=== PATIENT | female | born 1960 | race Caucasian/White ===

== ENCOUNTER 2019-11-23 02:15 | Emergency (ER) | payer BC ==
[~2019-11-23] VITALS: Ht 154.9 cm; Wt 104.3 kg
[2019-11-23] MEDS ORDERED: FAMOTIDINE 20 MG/2 ML VIAL IV STA (02:37)
[2019-11-23] MEDS ORDERED: KETOROLAC TROMETHAMINE 30 MG/ML VIAL IV STA (03:21)
[2019-11-23] MEDS ORDERED: KETOROLAC TROMETHAMINE 30 MG/ML VIAL ONE (03:31)
--- NOTE | 2019-11-23 03:45 | NUR ---
PT STATES "WHEN CAN I GO HOME. I AM READY TO GO. I FEEL SO MUCH BETTER AND MY BACK DOESNT HURT NOW. NOW I JUST HAVE INDIGESTION." EXPLAINED WAITING FOR ALL THE LAB RESULTS THEN THE DOCTOR WILL TALK TO HER ABOUT THE RESULTS.
--- NOTE | 2019-11-23 03:46 | Diagnostic Imaging Report ---
EXAMINATION: CXR 2 VIEW - HOPD INDICATION: ^chest pain ^[id number] ^[id number] COMPARISON: None FINDINGS: PA and lateral views TUBES and LINES: None. LUNGS: Lungs are well inflated. Lungs are clear. There is no evidence of pneumonia or pulmonary edema. PLEURA: No pleural effusion or pneumothorax. HEART AND MEDIASTINUM: The cardiomediastinal silhouette is unremarkable. BONES AND SOFT TISSUES: No acute osseous lesion. Soft tissues are unremarkable. UPPER ABDOMEN: No free air under the diaphragm. IMPRESSION: No acute thoracic radiographic abnormality. Signed by: Alexandru Valentino MD on 11/23/2019 3:42 AM
[2019-11-23] MEDS ORDERED: ASPIRIN 81 MG CHEW TAB PO ONE (04:00)
--- NOTE | 2019-11-23 04:05 | NUR ---
HAVE RUN CARDIAC TEST X3 WITHOUT RESULTS. CALLED [facility] PER TO HAVE BLOOD SENT TO LAB AT [facility] TO RUN. TRANSPORTER WILL TAKE AT LEAST 45MINS, STATES THAT IS TOO LONG AND NEED SOMEONE FROM THE HOSP TO COME GET THE BLOOD.
--- NOTE | 2019-11-23 04:12 | NUR ---
SIMBA FROM [facility] HERE TO TAKE BLOOD TO LAB
[2019-11-23 04:39] LABS: CREATINE KINASE 67 IU/L (29-168)
--- NOTE | 2019-11-23 04:57 | NUR ---
MD AND MYSELF IN MULT. TIMES TO SPEAK WITH PT, ASSIST. HER WITH TRYING TO GET COMFORTABLE, UNABLE TO GO TO SLEEP
--- NOTE | 2019-11-23 05:00 | NUR ---
CALLED [facility] LAB NO RESULTS FOR [facility] AND TROPI, WILL HAVE RESULTS IN ABOUT 5MINS.
--- NOTE | 2019-11-23 05:10 | NUR ---
LAB RESULTS ARRIVED FROM [facility]. IN TO TALK WITH PT
[2019-11-23 05:20] VITALS: BP 108/59
== END 2019-11-23 05:20 | disposition home or self-care (01) ==
LOC: FSED 02:15
DX: R07.89 Other chest pain (principal); K21.9 Gastro-esophageal reflux disease without esophagitis; M62.830 Muscle spasm of back; M06.9 Rheumatoid arthritis, unspecified
CPT/HCPCS: 36415; 71046; 80048; 80076; 82550; 82553; 83880; 84484; 85025; 93005; 96374; 96376; 99284; J1885

== ENCOUNTER → 2019-12-08 | Day surgery (SDC) | payer OTHER ==
[2019-12-05 12:22] LABS: BASOPHILS % 0.7 % (0.0-1.0); EOSINOPHILS # (AUTO) 0.2 (0.0-0.4); EOSINOPHILS % 3.1 % (0.0-6.0); HEMATOCRIT 45.1 % (34.2-44.1); HEMOGLOBIN 14.8 g/dL (12.0-16.0); LYMPHOCYTES # (AUTO) 1.2 (1.0-3.2); LYMPHOCYTES % 21.9 % (18.0-39.1); MEAN CORPUSCULAR HEMOGLOBIN 29.5 pg (28-32); MEAN CORPUSCULAR HGB CONC 32.8 g/dL (31-35); MONOCYTES # (AUTO) 0.6 (0.2-0.8); MONOCYTES % 10.9 % (4.4-11.3); NEUTROPHILS # (AUTO) 3.5 (2.1-6.9); NEUTROPHILS % 62.9 % (38.7-80.0); PLATELET COUNT 191 x10e3/uL (140-360); RED BLOOD COUNT 5.01 x10e6/uL (3.6-5.1); RED CELL DISTRIBUTION WIDTH 14.2 % (11.7-14.4)
[~2019-12-08] MED LIST: ACETAMINOPHEN325 M1 PO; ASPIRIN81 MG PO; CARVEDILOL3.125 MG PO; FAMOTIDINE20 MG PO; FENTANYL CITRATE/PF 100MCG/2 ML INJ ONE; FLONASE ALLERG9.9 ML; HYOSCYAMINE 0.125 MG TAB ONE; LIDOCAINE HCL 2% LOCAL INJ 5 ML SDV VIAL INJ ONE; MIDAZOLAM HCL 2 MG/2 ML VIAL ONE; MONTELUKAST SOD10 MG PO; PLAVIX75 MG PO; PROAIR HFA INH8.5 GM INH; PROPOFOL IV EMULSION 10 MG/ML 20 ML VIAL ONE; SIMVASTATIN20 MG PO; SPIRIVA18 MCG INH; SULFASALAZINE500 MG PO; SYMBICORT 16010.2 GM IH; TIZANIDINE HCL4 MG PO
--- OUTSIDE RECORDS SUMMARY | 2019-12-08 09:44 | XMS REPORT ---
Author Author Sujey Lopez Organization [employer] Address Unknown Phone Unavailable Care Team Providers Care Staff Development Nurse Name Role Phone Leydi Lopez CP Unavailable Allergies, Adverse Reactions, Alerts Substance Reaction Event Type N.K.D.A. 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 Active Problem Coronary artery disease invo lving [place] coronary artery of [place] heart, angina presence unspecified I25.10 Activ e Problem Gastroesophageal reflux disease, esophag itis presence not specified K21.9 Active Problem Osteopenia of spine M85.88 Active Problem Hypertensive heart disease without heart failure I11.9 Active Problem History of [place] (myocardial infarction) I25.2 Active Assessment Sinus headache R51 Active Problem Constipation, unspecified constipation type K59.00 Active Assessment Seasonal allergic rhinitis, unspecified allergic rhinitis trigger J30.2 Active Problem Non morbid obesity due to excess calories E66.09 Active Medications Medication Code System Code Instructions Start Date End Date Status Dosage Gabapentin [facility] [address]-59 600 MG Orally Three times a day Sep Active 1 tablet Fluticasone Propionate [facility] [address]-75 50 MCG/ACT Nasall y Once a day Aug 07, 2015 Active 1 spray in each nost ril Aspir-Low [facility] [address]-76 81 MG Orally Once a day December 25, 2012 Active 1 tablet Albuterol Sulfate HFA [facility] [address]-67 108 (90 Ba se) MCG/ACT Inhalation every 4-6 hrs PRN Jul 07, 2016 Active 2 puffs as neede d Plavix [facility] [address]-76 75 MG Orally Once a day Ac tive 1 tablet [address]ilol [facility] [address]-67 3.125 MG Orally once a day December 25 Active 1 tablet with food Symbicort [facility] [address]-82 160-4.5 MCG/ACT Inhalation Twice a day Jul 07, 2016 Apr 06, 2017 Active 2 puffs Sulfasalazine [facility] [address]-46 500 mg Orally 2 in the morning and 2 at night Active 1 tablet Levocetirizine Dihydrochloride [facility] [address]-44 5 MG Oral ly Once a day January 09, 2017 Jun 08, 2017 Active 1 tablet in the even ing Ranitidine HCl [facility] [address]-31 150 MG Orally QD-BID PRN Mar 272015 Active 1 capsule [address]nta [facility] [address]-25 75 MG Orally prn Aug 27, 2015 Acti ve 1 tablet Clopidogrel Bisulfate [facility] [address]-45 75 MG Orally Once a day December 25, 2012 Active 1 tablet Montelukast Sodium [facility] [address]-18 10 MG Orally Once a day Sep Active 1 tablet in the evening Simvastatin [facility] [address]-00 40 MG Orally Once a day December 25, 2012 Active 1 tablet in the evening Vital Signs Date/Time: January 09, 2017 BMI 37.41 Index Weight 198 lbs Height 61 in Cardiac Monitoring Heart Rate 76 /min Blood Pressure Diastolic 72 mm Hg Blood Pressure Systolic 112 mm Hg Results No Known Results Summary Purpose [employer] Submission
--- OUTSIDE RECORDS SUMMARY | 2019-12-08 09:44 | XMS REPORT ---
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 Active Problem Coronary artery disease invo lving [place] coronary artery of [place] heart, angina presence unspecified I25.10 Activ e Problem Gastroesophageal reflux disease, esophag itis presence not specified K21.9 Active Problem Osteopenia of spine M85.88 Active Assessment Hyperlipidemia, unspecified hyperlipidemia E78.5 Active Assessment Seasonal allergic rhinitis, unspecified allergic rhinitis trigger J30.2 Active Assessment Acute recurrent maxillary sinusitis J01.01 Active Problem Hypertensive heart disease without heart failure I11.9 Active Problem History of [place] (myocardial infarction) I25.2 Active Assessment Hypertensive heart disease without heart failure I11.9 Active Problem Constipation, unspecified constipation type K59.00 Active Assessment Chronic obstructive pulmonary disease, unspecified 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 CLERK D type J44.9 Active Problem Non morbid obesity due to excess calories E66.09 Active Medications Medication Code System Code Instructions Start Date End Date Status Dosage Simvastatin [facility] [address]-61 40 MG Orally Once a day December 25, 2012 Active 1 tablet in the evening Aspir-Low [facility] [address]-99 81 MG Orally Once a day December 25, 2012 Active 1 tablet Sulfasalazine [facility] [address]-94 500 mg Orally Activ e 3 tablet Gabapentin [facility] [address]-14 600 MG Orally as needed (prn) September 24, 2016 Active 1 tablet Albuterol Sulfate HFA [facility] [address]-69 108 (90 Ba se) MCG/ACT Inhalation every 4-6 hrs PRN Jul 07, 2016 Active 2 puffs as neede d Spiriva Respimat [facility] 9907[address]-81 2.5 mcg inhalation QD JanuaryOctober 08, 2017 Active 2 inhalations Montelukast Sodium [facility] [address]-12 10 MG Orally Once a day Mar Active 1 tablet in the evening Levofloxacin [facility] [address]-88 500 MG Orally Once a day MarApr 05, 2017 Active 1 tablet Plavix [facility] [address]-82 75 MG Orally Once a day Ac tive 1 tablet Symbicort [facility] [address]-44 160-4.5 MCG/ACT Inhalation Twice a day Jul 07, 2016 Apr 06, 2017 Active 2 puffs Cyclobenzaprine HCl [facility] [address]-48 7.5 MG Orally Active 1 tablet as needed Ranitidine HCl [facility] [address]-59 150 MG Orally QD-BID PRN Mar 272015 Active 1 capsule Multivitamin [facility] [address]367 Active not def ined Levocetirizine Dihydrochloride [facility] [address]-57 5 MG Oral ly Once a day January 09, 2017 Jun 08, 2017 Active 1 tablet in the even ing Carvedilol [facility] [address]-10 3.125 MG Orally once a day December 25 Active 1 tablet with food Nucynta [facility] [address]-39 75 MG Orally prn Aug 27, 2015 Acti ve 1 tablet Vitamin D [facility] [address]-95 6000 twice a day (bid) Active 1 capsule Tizanidine HCl [facility] [address]-75 4 MG Orally Active 1 capsule as needed Clopidogrel Bisulfate [facility] [address]-48 75 MG Orally Once a day December 25, 2012 Active 1 tablet Fluticasone Propionate [facility] [address]-41 50 MCG/ACT Nasall y Once a day Aug 07, 2015 Active 1 spray in each nost ril Esomeprazole Magnesium [facility] [address]-94 40 MG Orally daily Active 1 tablet Vital Signs Date/Time: Mar 31, 2017 BMI 37.60 Index Weight 199 lbs Height 61 in Cardiac Monitoring Heart Rate 70 /min Blood Pressure Diastolic 66 mm Hg Blood Pressure Systolic 110 mm Hg Results No Known Results Summary Purpose [employer] Submission
--- OUTSIDE RECORDS SUMMARY | 2019-12-08 09:44 | XMS REPORT | Continuity of Care Document ---
Author Author NovoED, BRANT Barron [employer] Address Unknown Phone Unavailable Care Team Providers Care Rack Loader Name Role Phone [employer] Unavailable Un available Problems Problem Status Onset Date Classification Date Reported Comments Source Rheumatoid arthritis Active Diagnosis 07/29/2018 [facility] GUCCI (obstructive sleep apnea) Active Problem 09/2018 [facility] Hyperlipidemia, unspecified hyperlipidemia Active Problem 07/29/2018 [facility] Seasonal allergic rhinitis, unspecified allergic rhinitis trigger Active Prob penelope 07/29/2018 [facility] Polyp of colon, unspecified part of colo n, unspecified type Active Prob penelope 07/29/2018 [facility] Ulcerative colitis with complication, un specified location Active Prob penelope 07/29/2018 [facility] Chronic obstructive pulmonary disease, u nspecified COPD type Active Diag nosis 07/29/2018 [facility] Coronary artery disease involving prairie band coronary artery of prairie band heart, angina presence unspecified Active Diagnosis 07/29/2018 [facility] Gastroesophageal reflux disease, esophag itis presence not specified Active Prob penelope 07/29/2018 [facility] Osteopenia of spine Active Problem 07/29/2018 [facility] Headache, unspecified headache type Active Diagnosis 0 12/31/2016 [facility] Hypertensive heart disease without heart failure Active Diagnosis 07/29/2018 [facility],Prabhu Singh MD, PA History of [place] (myocardial infarction) Active Diagnosis 07/29/2018 [facility] Constipation, unspecified constipation type Active Problem 07/29/2018 [facility] Non morbid obesity due to excess calories Active Problem 07/29/2018 [facility] Cough Active Diagnosis 01/17/2017 [facility] Seasonal allergic rhinitis, unspecified chronicity, unspecified trigger Active Diag nosis 01/17/2017 [facility] BMI 37.0-37.9, adult Active Problem 07/29/2018 [facility] Sinus headache Active Diagnosis 01/03/2018 [facility] Screening for colon cancer Act dianne Diagnosis 0 01/30/2017 [facility] Screening for breast cancer Ac tive Diagnosis 0 01/30/2017 [facility] Encntr for general adult medical exam w/ o abnormal findings Active Diag nosis 01/30/2017 [facility] Old myocardial infarction Acti ve Problem Prabhu Singh MD, PA Body mass index (BMI) 36.0-36.9, adult Active Diagnosis 04/15/2017 Prabhu Singh MD, P A Coronary atherosclerosis of prairie band coronary artery Active Problem 04/15/2017 Prabhu Singh MD, PA Obesity, unspecified Active Diagnosis 04/15/2017 Prabhu Singh MD, PA Mixed hyperlipidemia Active Problem 04/15/2017 Prabhu Singh MD, PA Abnormal electrocardiogram [ECG] [EKG] Active Problem 04/15/2017 Prabhu Singh MD, P A Atherosclerotic heart disease of prairie band coronary artery with unspecified angina pectoris Active Problem 04/15/2017 Prabhu Singh MD, PA Chest pain, unspecified Active Problem 04/15/2017 Prabhu Singh MD, PA Coronary angioplasty status Ac tive Problem Prabhu Singh MD, PA Atherosclerotic heart disease of prairie band coronary artery without angina pectoris Active Problem 04/15/2017 Prabhu Singh MD, PA Old myocardial infarction Acti ve Problem Prabhu Singh MD, PA Obesity, unspecified Active Problem 04/15/2017 Prabhu Singh MD, PA Benign hypertensive heart disease without heart failur e Active Problem 04/15/2017 Prabhu Singh MD, PA Postprocedural PCI status Acti ve Problem Prabhu Singh MD, PA Abnormal ECG Active Problem 04/15/2017 Prabhu Singh MD, PA Mixed hyperlipidemia Active Problem 04/15/2017 Prabhu Singh MD, PA Acute bilateral low back pain without sciatica Active Diagnosis 04/17/2017 [facility] Acute recurrent maxillary sinusitis Active Diagnosis 0 04/02/2017 [facility] Body mass index (BMI) of 40.1 to 44.9 in adult Active Problem 07/29/2018 [facility] Allergic rhinitis Active Problem 09/17/2016 [facility] Acute sinusitis, recurrence not specifie d, unspecified location Active Diag nosis 09/01/2015 [facility] Acute pain of left shoulder Ac tive Diagnosis 0 10/06/2015 [facility] Elevated blood pressure (not hypertension) Active Diagnosis 10/06/2015 [facility] Abnormal EKG Active Diagnosis 10/06/2015 [facility] Thrombocytopenia Active Problem 06/13/2016 [facility] Pain in right foot Active Diagnosis 11/22/2015 [facility] Pain of left foot Active Diagnosis 11/22/2015 [facility] Leukopenia, unspecified type A ctive Problem [facility] Sorethroat Active Diagnosis 10/18/2015 [facility] Screening for osteoporosis Act dianne Diagnosis 0 11/11/2015 [facility] Routine adult health maintenance Active Diagnosis 0 11/11/2015 [facility] Constipation Active Diagnosis 01/06/2016 [facility] Constipation by delayed colonic transit Active Diagnosis 01/06/2016 [facility] Urinary tract infection Active Diagnosis 04/12/2016 [facility] Heart burn Active Diagnosis 04/12/2016 [facility] Abdominal pain Active Diagnosis 04/12/2016 [facility] Dizziness Active Diagnosis 04/12/2016 [facility] Headache Active Diagnosis 03/07/2016 [facility] Seasonal allergies Active Diagnosis 03/07/2016 [facility] Abdominal spasms Active Diagnosis 09/18/2016 [facility] Lower respiratory infection Ac tive Diagnosis 0 09/18/2016 [facility] Abdominal pain, unspecified location Active Diagnosis 08/07/2016 [facility] Dry skin Active Diagnosis 08/07/2016 [facility] Wears dentures Active Diagnosis 07/29/2018 [facility] COPD exacerbation Active Diagnosis 07/29/2018 [facility] Thrush, oral Active Diagnosis 07/29/2018 [facility] Medications Medication Details Route Status Patient Instructions Ordering Provider Order Date Source ProAir HFA 2 puffs as needed Inhalation Active 108 (90 Base) MCG/ACT Inhalation every 6 hrs Xavier Pimentel 07/22/2018 [facility] Ventolin HFA 2 puffs as needed Inhalation Active 108 (90 Base) MCG/ACT Inhalation every 6 hrs Hever 07/09/2018 [facility] Cheratussin AC 5 ml Orally Active 100-10 MG/5ML Orally ti d prn cough Hever 07/09/2018 [facility] Ceftin 1 tablet Orally Active 250 MG Orally every 12 hrs Hever 07/06/2018 [facility] Mycelex 1 jerome Mouth/Throat Active 10 mg Mouth/Throat Five times a day Hever 07/06/2018 [facility] Proventil HFA 2 puffs as needed Inhalation Active 108 (90 Base) MCG/ACT Inhalation every 6 hrs Hever 07/06/2018 [facility] Ceftin 1 tablet Orally Active 250 MG Orally Twice a d lacey Hever 12/22/2017 [facility] Montelukast Sodium 1 tablet in the evening Orally Active 10 mg Orally Once a day Hever 03/31/2017 [facility] Montelukast Sodium 1 tablet in the evening Orally Active 10 MG Orally Once a day John 03/31/2017 [facility] Levofloxacin 1 tablet Orally Active 500 MG Orally Once a da y John 03/31/2017 [facility] Spiriva Respimat 2 inhalations inhalation Active 2.5 mcg inhalation QD John 01/28/2017 [facility] Spiriva Respimat 2 inhalations inhalation Active 2.5 mcg inhalation QD [place]idan 01/28/2017 [facility] Augmentin 1 tablet Orally Active 875-125 MG Orally every 12 hrs [place] 01/14/2017 [facility] Levocetirizine Dihydrochloride 1 tablet in the evening Orally Active 5 MG Orally Once a day John 01/09/2017 [facility] Montelukast Sodium 1 tablet in the evening Orally Active 10 MG Orally Once a day [place] 10/13/2016 [facility] Gabapentin 1 tablet Orally Active 600 MG Orally as needed (prn) John 09/24/2016 [facility] Gabapentin 1 tablet Orally Active 600 MG Orally as needed (prn) Hever 09/24/2016 [facility] Zithromax Z-Jose Alejandro 2 tablets on the first day, then 1 tablet daily for 4 days Orally Active 250 MG Orally Once a day John 09/16/2016 [facility] Diflucan 1 tablet Orally Active 150 MG Orally Once a da y Nicolas 08/05/2016 [facility] Albuterol Sulfate HFA 2 puffs as needed Inhalation Active 108 (90 Base) MCG/ACT Inhalation every 4-6 hrs PRN Hever 07/07/2016 [facility] Symbicort 2 puffs Inhalation Active 160-4.5 MCG/ACT Inhalat ion Twice a day John 07/07/2016 [facility] Symbicort 2 puffs Inhalation Active 160-4.5 MCG/ACT Inhalat ion Twice a day John 05/07/2016 [facility] Linzess 1 capsule Orally Active 145 MCG Orally Once a d ay John 04/30/2016 [facility] Ranitidine HCl 1 capsule Orally Active 150 MG Orally QD-BID GA N John 04/10/2016 [facility] Ranitidine HCl 1 capsule Orally Active 150 MG Orally QD-BID GA N Hever 04/10/2016 [facility] Cipro 1 tablet Orally Active 250 MG Orally every 12 hrs [place] 04/10/2016 [facility] Nystatin 5ml gargle and spit Mouth/Throat Active [id number] UNIT/ML Mouth/Throat Three times a day until symptoms resolve Xavier Pimentel 10/19/2015 [facility] magic mouthwash 1 tsp (gargle and spit) PO Active 1: 1:1 PO Q6 PRN John 10/16/2015 [facility] Omnicef 1 capsule Orally Active 300 MG Orally every 12 hrs John 10/16/2015 [facility] Nucynta 1 tablet Orally Active 75 MG Orally prn John 08/27/2015 [facility] Nucynta 1 tablet Orally Active 75 MG Orally prn Hever 08/27/2015 [facility] Imitrex 1 tablet Orally Active 100 mg Orally at onset headache may repeat in 2 hrs max 2 a day Nicolas 08/21/2015 [facility] Fluticasone Propionate 1 spray in each nostril Nasally Active 50 MCG/ACT Nasally Once a day John 08/07/2015 [facility] Fluticasone Propionate 1 spray in each nostril Nasally Active 50 MCG/ACT Nasally Once a day Hever 08/07/2015 [facility] ProAir HFA 2 puffs as needed Inhalation No Longer Active 108 (90 Base) MCG/ACT Inhalation every 4 hrs as needed for increased SOB [place] 02/13/2015 [facility] Clopidogrel Bisulfate 1 tablet Orally Active 75 MG Orally Once a day John 12/25/2012 [facility] Simvastatin 1 tablet in the ev ening Orally Active 40 MG Orally Once a day John 12/25/2012 [facility] Aspir-Low 1 tablet Orally Active 81 MG Orally Once a day John 12/25/2012 [facility] Carvedilol 1 tablet with food Orally Active 3.125 MG Orally once a day John 12/25/2012 [facility] Aspir-Low 1 tablet Orally Active 81 MG Orally Once a day Hever 12/25/2012 [facility] Simvastatin 1 tablet in the ev ening Orally Active 40 MG Orally Once a day John 12/25/2012 [facility] Clopidogrel Bisulfate 1 tablet Orally Active 75 MG Orally Once a day Hever 12/25/2012 [facility] Carvedilol 1 tablet with food Orally Active 3.125 MG Orally once a day Hever 12/25/2012 [facility] Plavix 1 tablet Orally Active 75 MG Orally Once a day John [facility] Clopidogrel Bisulfate 1 tablet Orally Active 75 MG Orally Once a day John [facility] Aspir-Low 1 tablet Orally Active 81 MG Orally Once a day John [facility] Nucynta 1 tablet Orally Active 75 MG Orally prn John [facility] Sulfasalazine 3 tablet Orally Active 500 mg Orally John [facility] Multivitamin not defined NA Active [facility] Vitamin D 1 capsule NA Active 6000 twice a day (bid) Hever Danielle [facility] Cyclobenzaprine HCl 1 tablet a s needed Orally Active 7.5 MG Orally [facility] Esomeprazole Magnesium 1 tablet Orally Active 40 MG Orally daily [facility] Tizanidine HCl 1 capsule as ne eded Orally Active 4 MG Orally [facility] Esomeprazole Magnesium TAKE ON E CAPSULE BY MOUTH DAILY NA Active 40 MG [facility] Cyclobenzaprine HCl 1 tablet a s needed Orally Active 7.5 MG Orally [facility] Plavix 1 tablet Orally Active 75 MG Orally Once a day Hever Danielle [facility] Tizanidine HCl 1 capsule as ne eded Orally Active 4 MG Orally [facility] Symbicort 2 puffs Inhalation Active 160-4.5 MCG/ACT Inhalat ion Twice a day Hever [facility] Levocetirizine Dihydrochloride 1 tablet in the evening Orally Active 5 MG Orally Once a day Nilda bateman [facility] Sulfasalazine 3 tablet Orally Active 500 mg Orally Hever Danielle [facility] Symbicort 2 puffs Inhalation Active 160-4.5 MCG/ACT Inhalat ion Twice a day [facility],Amanda Singh MD, PA Spiriva Respimat 2 puffs Inhalation Active 2.5 MCG/ACT Inhalation Once a day Francisco Singh MD, PA Plavix 1 tablet Orally Active 75 MG Orally Once a day Francisco Singh MD, PA Aspirin 1 tablet Orally Active 81 MG Orally Once a day Francisco Singh MD, PA ProAir HFA 2 puffs as needed Inhalation Active 108 (90 Base) MCG/ACT Inhalation every 4 hrs Francisco Singh MD, PA Ranitidine HCl 1 capsule at be dtime Orally Active 150 MG Orally Once a day Francisco Singh MD, PA Carvedilol 1 tablet Orally Active 3.125 MG Orally twice a day (bid) Francisco [facility],Amanda Singh MD, PA Simvastatin 1 tablet Orally Active 40 MG Orally Once a day [place] [facility],Prabhu Singh MD, PA Sulfasalazine 1 tablet Orally Active 500 mg Orally every 6 h rs Martirkarlos [facility],Prabhu Singh MD, PA Nucynta 1 tablet Orally Active 75 MG Orally every 6 hr s Francisco [facility],Prabhu Singh MD, PA Spiriva Respimat INHALE TWO IN HALATIONS BY MOUTH DAILY NA Active 2.5 MCG/ACT Hever [facility] Simvastatin TAKE 1 TABLET BY M OUTH EVERY EVENING NA Active 40 MG Hever [facility] Flexeril 1 tablet Orally Active 5 MG Orally as needed ( prn) Francisco Singh MD, PA Cipro 1 tablet Orally Active 250 MG Orally every 12 hrs Francisco Singh MD, PA Sulfasalazine 1 tablet Orally Active 500 mg Orally 2 in the morning and 2 at night John [facility] Allergies, Adverse Reactions, Alerts Substance Category Reaction Severity Reaction type Status Date Reported Comments Source N.K.D.A. Adverse Reaction Info Not Available Adverse Reaction Active 07/06/2018 [facility] Immunizations No Data Provided for This Section Results No Data Provided for This Section Pathology Reports No Data Provided for This Section Diagnostic Reports No Data Provided for This Section Consultation Notes No Data Provided for This Section Discharge Summaries No Data Provided for This Section History and Physicals No Data Provided for This Section Vital Signs Vital Sign Value Date Comments Source Weight 217.6 07/06/2018 [facility] Height 61 1 09/06/2017 [facility] Heart Rate 110 07/06/2018 [facility] Diastolic (mm Hg) 62 07/06/2018 [facility] Systolic (mm Hg) 112 07/06/2018 [facility] Weight 217 12/22/2017 [facility] Height 61 0 12/22/2017 [facility] Temperature Oral (F) 98.4 F 12/22/2017 [facility] Heart Rate 74 12/22/2017 [facility] Diastolic (mm Hg) 84 12/22/2017 [facility] Systolic (mm Hg) 118 12/22/2017 [facility] Weight 199 08/31/2017 [facility] Height 61 0 08/31/2017 [facility] Heart Rate 60 08/31/2017 [facility] Diastolic (mm Hg) 78 08/31/2017 [facility] Systolic (mm Hg) 110 08/31/2017 [facility] Weight 197 04/15/2017 [facility] Height 61 0 04/15/2017 [facility] Heart Rate 74 04/15/2017 [facility] Diastolic (mm Hg) 80 04/15/2017 [facility] Systolic (mm Hg) 112 04/15/2017 [facility] Weight 198 04/14/2017 Prabhu Singh MD, PA Heart Rate 90 04/14/2017 Prabhu Singh MD, PA Diastolic (mm Hg) 80 04/14/2017 Prabhu Singh MD, PA Systolic (mm Hg) 119 04/14/2017 Prabhu Singh MD, PA Weight 199 03/31/2017 [facility] Height 61 0 03/31/2017 [facility] Heart Rate 70 03/31/2017 [facility] Diastolic (mm Hg) 66 03/31/2017 [facility] Systolic (mm Hg) 110 03/31/2017 [facility] Weight 196 01/28/2017 [facility] Height 61 0 01/28/2017 [facility] Heart Rate 54 01/28/2017 [facility] Diastolic (mm Hg) 66 01/28/2017 [facility] Systolic (mm Hg) 108 01/28/2017 [facility] Weight 198 01/14/2017 [facility] Height 61 0 01/14/2017 [facility] Temperature Oral (F) 98.3 F 01/14/2017 [facility] Heart Rate 66 01/14/2017 [facility] Diastolic (mm Hg) 64 01/14/2017 [facility] Systolic (mm Hg) 104 01/14/2017 [facility] Weight 198 01/09/2017 [facility] Height 61 0 01/09/2017 [facility] Heart Rate 76 01/09/2017 [facility] Diastolic (mm Hg) 72 01/09/2017 [facility] Systolic (mm Hg) 112 01/09/2017 [facility] Weight 194 12/30/2016 [facility] Height 61 0 12/30/2016 [facility] Heart Rate 86 12/30/2016 [facility] Diastolic (mm Hg) 70 12/30/2016 [facility] Systolic (mm Hg) 105 12/30/2016 [facility] Weight 195 10/16/2016 Prabhu Singh MD, PA Heart Rate 83 10/16/2016 Prabhu Singh MD, PA Diastolic (mm Hg) 60 10/16/2016 Prabhu Singh MD, PA Systolic (mm Hg) 130 10/16/2016 Prabhu Singh MD, PA Weight 196 10/13/2016 [facility] Height 61 0 10/13/2016 [facility] Heart Rate 88 10/13/2016 [facility] Diastolic (mm Hg) 70 10/13/2016 [facility] Systolic (mm Hg) 120 10/13/2016 [facility] Weight 198 09/17/2016 [facility] Height 61 0 09/17/2016 [facility] Heart Rate 94 09/17/2016 [facility] Diastolic (mm Hg) 76 09/17/2016 [facility] Systolic (mm Hg) 118 09/17/2016 [facility] Weight 199 09/15/2016 [facility] Height 61 0 09/15/2016 [facility] Heart Rate 82 09/15/2016 [facility] Diastolic (mm Hg) 80 09/15/2016 [facility] Systolic (mm Hg) 120 09/15/2016 [facility] Weight 196 08/04/2016 [facility] Height 61 0 08/04/2016 [facility] Heart Rate 80 08/04/2016 [facility] Diastolic (mm Hg) 82 08/04/2016 [facility] Systolic (mm Hg) 118 08/04/2016 [facility] Weight 194 07/07/2016 [facility] Height 61 1 09/07/2015 [facility] Heart Rate 80 07/07/2016 [facility] Diastolic (mm Hg) 80 07/07/2016 [facility] Systolic (mm Hg) 110 07/07/2016 [facility] Weight 194 06/24/2016 [facility] Height 61 1 08/24/2015 [facility] Temperature Oral (F) 98.1 F 06/24/2016 [facility] Heart Rate 86 06/24/2016 [facility] Diastolic (mm Hg) 60 06/24/2016 [facility] Systolic (mm Hg) 120 06/24/2016 [facility] Weight 199 04/30/2016 [facility] Height 61 1 [facility] Heart Rate 85 04/30/2016 [facility] Diastolic (mm Hg) 84 04/30/2016 [facility] Systolic (mm Hg) 118 04/30/2016 [facility] Weight 195 04/17/2016 Prabhu Singh MD, PA Heart Rate 78 04/17/2016 Prabhu Singh MD, PA Diastolic (mm Hg) 80 04/17/2016 Prabhu Singh MD, PA Systolic (mm Hg) 120 04/17/2016 Prabhu Singh MD, PA Weight 198 04/10/2016 [facility] Height 61 0 04/10/2016 [facility] Heart Rate 76 04/10/2016 [facility] Diastolic (mm Hg) 85 04/10/2016 [facility] Systolic (mm Hg) 130 04/10/2016 [facility] Weight 199 03/04/2016 [facility] Height 61 0 03/04/2016 [facility] Heart Rate 94 03/04/2016 [facility] Diastolic (mm Hg) 84 03/04/2016 [facility] Systolic (mm Hg) 118 03/04/2016 [facility] Weight 198 01/02/2016 [facility] Height 61 0 01/02/2016 [facility] Temperature Oral (F) 97.7 F 01/02/2016 [facility] Heart Rate 78 01/02/2016 [facility] Diastolic (mm Hg) 88 01/02/2016 [facility] Systolic (mm Hg) 120 01/02/2016 [facility] Weight 196 11/19/2015 [facility] Height 61 0 11/19/2015 [facility] Heart Rate 80 11/19/2015 [facility] Diastolic (mm Hg) 70 11/19/2015 [facility] Systolic (mm Hg) 130 11/19/2015 [facility] Weight 198 11/09/2015 [facility] Height 61 0 11/09/2015 [facility] Heart Rate 88 11/09/2015 [facility] Diastolic (mm Hg) 74 11/09/2015 [facility] Systolic (mm Hg) 132 11/09/2015 [facility] Weight 198 10/16/2015 [facility] Height 61 0 10/16/2015 [facility] Heart Rate 80 10/16/2015 [facility] Diastolic (mm Hg) 80 10/16/2015 [facility] Systolic (mm Hg) 138 10/16/2015 [facility] [facility] Weight 195 10/11/2015 Prabhu Singh MD, PA Heart Rate 80 10/11/2015 Prabhu Singh MD, PA Diastolic (mm Hg) 70 10/11/2015 Prabhu Singh MD, PA Systolic (mm Hg) 120 10/11/2015 Prabhu Singh MD, PA Weight 201 10/04/2015 [facility] Height 61 0 10/04/2015 [facility] Heart Rate 88 10/04/2015 [facility] Diastolic (mm Hg) 80 10/04/2015 [facility] Systolic (mm Hg) 150 10/04/2015 [facility] Weight 196 08/07/2015 [facility] Height 61 0 08/07/2015 [facility] Heart Rate 76 08/07/2015 [facility] Diastolic (mm Hg) 80 08/07/2015 [facility] Systolic (mm Hg) 120 08/07/2015 [facility] Encounters Location Location Details Encounter Type Encounter Number Reason For Visit Attending Provider ADM Date DC Date Status Source [facility] Headaches [id number] 03/07/2015 03/07/2015 [facility] Headaches [id number] 03/07/2015 03/07/2015 Prabhu Singh MD, PA [facility] Headaches [id number] 03/07/2015 03/07/2015 [facility] Headaches [id number] 03/07/2015 03/07/2015 [facility] Headaches [id number] 03/07/2015 03/07/2015 [facility] Headaches [id number] 03/07/2015 03/07/2015 [facility] Headaches [id number] 03/07/2015 03/07/2015 Prabhu Singh MD, PA [facility] Headaches [id number] 03/07/2015 03/07/2015 [facility] Headaches [id number] 03/07/2015 03/07/2015 Prabhu Singh MD, PA [facility] Headaches [id number] 03/07/2015 03/07/2015 Prabhu Singh MD, PA [facility] Headaches [id number] 03/07/2015 03/07/2015 [facility] Headaches [id number] 03/07/2015 03/07/2015 [facility] Headaches [id number] 03/07/2015 03/07/2015 [facility] Headaches [id number] 03/07/2015 03/07/2015 [facility] Headaches [id number] 03/07/2015 03/07/2015 [facility] Headaches [id number] 03/07/2015 03/07/2015 [facility] Headaches [id number] 03/07/2015 03/07/2015 [facility] Headaches [id number] 03/07/2015 03/07/2015 [facility] Headaches [id number] 03/07/2015 03/07/2015 [facility] Headaches [id number] 03/07/2015 03/07/2015 [facility] Headaches [id number] 03/07/2015 03/07/2015 [facility] Headaches [id number] 03/07/2015 03/07/2015 [facility] Headaches [id number] 03/07/2015 03/07/2015 [facility] Headaches [id number] 03/07/2015 03/07/2015 [facility] Headaches [id number] 03/07/2015 03/07/2015 [facility] Headaches [id number] 03/07/2015 03/07/2015 [facility] ARTERIAL/ [id number] 04/24/2015 04/24/2015 [facility] ARTERIAL/ [id number] 04/24/2015 04/24/2015 Prabhu Singh MD, PA [facility] ARTERIAL/ [id number] 04/24/2015 04/24/2015 [facility] ARTERIAL/ [id number] 04/24/2015 04/24/2015 [facility] ARTERIAL/ [id number] 04/24/2015 04/24/2015 [facility] ARTERIAL/ [id number] 04/24/2015 04/24/2015 [facility] ARTERIAL/ [id number] 04/24/2015 04/24/2015 Prabhu Singh MD, PA [facility] ARTERIAL/ [id number] 04/24/2015 04/24/2015 [facility] ARTERIAL/ [id number] 04/24/2015 04/24/2015 Prabhu Singh MD, PA [facility] ARTERIAL/ [id number] 04/24/2015 04/24/2015 Prabhu Singh MD, PA [facility] ARTERIAL/ [id number] 04/24/2015 04/24/2015 [facility] ARTERIAL/ [id number] 04/24/2015 04/24/2015 [facility] ARTERIAL/ [id number] 04/24/2015 04/24/2015 [facility] ARTERIAL/ [id number] 04/24/2015 04/24/2015 [facility] ARTERIAL/ [id number] 04/24/2015 04/24/2015 [facility] ARTERIAL/ [id number] 04/24/2015 04/24/2015 [facility] ARTERIAL/ [id number] 04/24/2015 04/24/2015 [facility] ARTERIAL/ [id number] 04/24/2015 04/24/2015 [facility] ARTERIAL/ [id number] 04/24/2015 04/24/2015 [facility] ARTERIAL/ [id number] 04/24/2015 04/24/2015 [facility] ARTERIAL/ [id number] 04/24/2015 04/24/2015 [facility] ARTERIAL/ [id number] 04/24/2015 04/24/2015 [facility] ARTERIAL/ [id number] 04/24/2015 04/24/2015 [facility] ARTERIAL/ [id number] 04/24/2015 04/24/2015 [facility] ARTERIAL/ [id number] 04/24/2015 04/24/2015 [facility] ARTERIAL/ [id number] 04/24/2015 04/24/2015 [facility] Needs call back from Medical Staff [id number] 05/07/2015 05/07/2015 [facility] Needs call back from Medical Staff [id number] 05/07/2015 05/07/2015 Prabhu Singh MD, P A [facility] Needs call back from Medical Staff [id number] 05/07/2015 05/07/2015 [facility] Needs call back from Medical Staff [id number] 05/07/2015 05/07/2015 [facility] Needs call back from Medical Staff [id number] 05/07/2015 05/07/2015 [facility] Needs call back from Medical Staff [id number] 05/07/2015 05/07/2015 [facility] Needs call back from Medical Staff [id number] 05/07/2015 05/07/2015 Prabhu Singh MD, P A [facility] Needs call back from Medical Staff [id number] 05/07/2015 05/07/2015 [facility] Needs call back from Medical Staff [id number] 05/07/2015 05/07/2015 Prabhu Singh MD, P A [facility] Needs call back from Medical Staff [id number] 05/07/2015 05/07/2015 Prabhu Singh MD, P A [facility] Needs call back from Medical Staff [id number] 05/07/2015 05/07/2015 [facility] Needs call back from Medical Staff [id number] 05/07/2015 05/07/2015 [facility] Needs call back from Medical Staff [id number] 05/07/2015 05/07/2015 [facility] Needs call back from Medical Staff [id number] 05/07/2015 05/07/2015 [facility] Needs call back from Medical Staff [id number] 05/07/2015 05/07/2015 [facility] Needs call back from Medical Staff [id number] 05/07/2015 05/07/2015 [facility] Needs call back from Medical Staff [id number] 05/07/2015 05/07/2015 [facility] Needs call back from Medical Staff [id number] 05/07/2015 05/07/2015 [facility] Needs call back from Medical Staff [id number] 05/07/2015 05/07/2015 [facility] Needs call back from Medical Staff [id number] 05/07/2015 05/07/2015 [facility] Needs call back from Medical Staff [id number] 05/07/2015 05/07/2015 [facility] Needs call back from Medical Staff [id number] 05/07/2015 05/07/2015 [facility] Needs call back from Medical Staff [id number] 05/07/2015 05/07/2015 [facility] Needs call back from Medical Staff [id number] 05/07/2015 05/07/2015 [facility] Needs call back from Medical Staff [id number] 05/07/2015 05/07/2015 [facility] Needs call back from Medical Staff [id number] 05/07/2015 05/07/2015 [facility] ECHO RESULTS [id number] 05/14/2015 05/14/2015 [facility] ECHO RESULTS [id number] 05/14/2015 05/14/2015 Prabhu Singh MD, PA [facility] ECHO RESULTS [id number] 05/14/2015 05/14/2015 [facility] ECHO RESULTS [id number] 05/14/2015 05/14/2015 [facility] ECHO RESULTS [id number] 05/14/2015 05/14/2015 [facility] ECHO RESULTS [id number] 05/14/2015 05/14/2015 [facility] ECHO RESULTS [id number] 05/14/2015 05/14/2015 Prabhu Singh MD, PA [facility] ECHO RESULTS [id number] 05/14/2015 05/14/2015 [facility] ECHO RESULTS [id number] 05/14/2015 05/14/2015 Prabhu Singh MD, PA [facility] ECHO RESULTS [id number] 05/14/2015 05/14/2015 Prabhu Singh MD, PA [facility] ECHO RESULTS [id number] 05/14/2015 05/14/2015 [facility] ECHO RESULTS [id number] 05/14/2015 05/14/2015 [facility] ECHO RESULTS [id number] 05/14/2015 05/14/2015 [facility] ECHO RESULTS [id number] 05/14/2015 05/14/2015 [facility] ECHO RESULTS [id number] 05/14/2015 05/14/2015 [facility] ECHO RESULTS [id number] 05/14/2015 05/14/2015 [facility] ECHO RESULTS [id number] 05/14/2015 05/14/2015 [facility] ECHO RESULTS [id number] 05/14/2015 05/14/2015 [facility] ECHO RESULTS [id number] 05/14/2015 05/14/2015 [facility] ECHO RESULTS [id number] 05/14/2015 05/14/2015 [facility] ECHO RESULTS [id number] 05/14/2015 05/14/2015 [facility] ECHO RESULTS [id number] 05/14/2015 05/14/2015 [facility] ECHO RESULTS [id number] 05/14/2015 05/14/2015 [facility] ECHO RESULTS [id number] 05/14/2015 05/14/2015 [facility] ECHO RESULTS [id number] 05/14/2015 05/14/2015 [facility] ECHO RESULTS [id number] 05/14/2015 05/14/2015 [facility] Prabhu Singh MD, PA Follow-Up [id number] 05/24/20 15 05/24/2015 [facility] Prabhu Singh MD, PA Follow-Up [id number] 05/24/20 15 05/24/2015 Prabhu Singh MD, PA Prabhu Singh MD, PA Follow-Up [id number] 05/24/20 15 05/24/2015 [facility] Prabhu Singh MD, PA Follow-Up [id number] 05/24/20 15 05/24/2015 [facility] Prabhu Singh MD, PA Follow-Up [id number] 05/24/20 15 05/24/2015 [facility] Prabhu Singh MD, PA Follow-Up [id number] 05/24/20 15 05/24/2015 [facility] Prabhu Singh MD, PA Follow-Up [id number] 05/24/20 15 05/24/2015 Prabhu Singh MD, PA Prabhu Singh MD, PA Follow-Up [id number] 05/24/20 15 05/24/2015 [facility] Prabhu Singh MD, PA Follow-Up [id number] 05/24/20 15 05/24/2015 Prabhu Singh MD, PA Prabhu Singh MD, PA Follow-Up [id number] 05/24/20 15 05/24/2015 Prabhu Singh MD, PA Prabhu Singh MD, PA Follow-Up [id number] 05/24/20 15 05/24/2015 [facility] Prabhu Singh MD, PA Follow-Up [id number] 05/24/20 15 05/24/2015 [facility] Prabhu Singh MD, PA Follow-Up [id number] 05/24/20 15 05/24/2015 [facility] Prabhu Singh MD, PA Follow-Up [id number] 05/24/20 15 05/24/2015 [facility] Prabhu Singh MD, PA Follow-Up [id number] 05/24/20 15 05/24/2015 [facility] Prabhu Singh MD, PA Follow-Up [id number] 05/24/20 15 05/24/2015 [facility] Prabhu Singh MD, PA Follow-Up [id number] 05/24/20 15 05/24/2015 [facility] Prabhu Singh MD, PA Follow-Up [id number] 05/24/20 15 05/24/2015 [facility] Prabhu Singh MD, PA Follow-Up [id number] 05/24/20 15 05/24/2015 [facility] Prabhu Singh MD, PA Follow-Up [id number] 05/24/20 15 05/24/2015 [facility] Prabhu Singh MD, PA Follow-Up [id number] 05/24/20 15 05/24/2015 [facility] Prabhu Singh MD, PA Follow-Up [id number] 05/24/20 15 05/24/2015 [facility] Prabhu Singh MD, PA Follow-Up [id number] 05/24/20 15 05/24/2015 [facility] Prabhu Singh MD, PA Follow-Up [id number] 05/24/20 15 05/24/2015 [facility] Prabhu Singh MD, PA Follow-Up [id number] 05/24/20 15 05/24/2015 [facility] Prabhu Singh MD, PA Follow-Up [id number] 05/24/20 15 05/24/2015 [facility] Prabhu Singh MD, PA echo & carotid dopplers [id number] 05/31/2015 05/31/2015 [facility] Prabhu Singh MD, PA echo & carotid dopplers [id number] 05/31/2015 05/31/2015 Prabhu Singh MD, PA Prabhu Singh MD, PA echo & carotid dopplers [id number] 05/31/2015 05/31/2015 [facility] Prabhu Singh MD, PA echo & carotid dopplers [id number] 05/31/2015 05/31/2015 [facility] Prabhu Singh MD, PA echo & carotid dopplers [id number] 05/31/2015 05/31/2015 [facility] Prabhu Singh MD, PA echo & carotid dopplers [id number] 05/31/2015 05/31/2015 [facility] Prabhu Singh MD, PA echo & carotid dopplers [id number] 05/31/2015 05/31/2015 Prabhu Singh MD, PA Prabhu Singh MD, PA echo & carotid dopplers [id number] 05/31/2015 05/31/2015 [facility] Prabhu Singh MD, PA echo & carotid dopplers [id number] 05/31/2015 05/31/2015 Prabhu Singh MD, PA Prabhu Singh MD, PA echo & carotid dopplers [id number] 05/31/2015 05/31/2015 Prabhu Singh MD, PA Prabhu Singh MD, PA echo & carotid dopplers [id number] 05/31/2015 05/31/2015 [facility] Prabhu Singh MD, PA echo & carotid dopplers [id number] 05/31/2015 05/31/2015 [facility] Prabhu Singh MD, PA echo & carotid dopplers [id number] 05/31/2015 05/31/2015 [facility] Prabhu Singh MD, PA echo & carotid dopplers [id number] 05/31/2015 05/31/2015 [facility] Prabhu Singh MD, PA echo & carotid dopplers [id number] 05/31/2015 05/31/2015 [facility] Prabhu Singh MD, PA echo & carotid dopplers [id number] 05/31/2015 05/31/2015 [facility] Prabhu Singh MD, PA echo & carotid dopplers [id number] 05/31/2015 05/31/2015 [facility] Prabhu Singh MD, PA echo & carotid dopplers [id number] 05/31/2015 05/31/2015 [facility] Prabhu Singh MD, PA echo & carotid dopplers [id number] 05/31/2015 05/31/2015 [facility] Prabhu Singh MD, PA echo & carotid dopplers [id number] 05/31/2015 05/31/2015 [facility] Prabhu Singh MD, PA echo & carotid dopplers [id number] 05/31/2015 05/31/2015 [facility] Prabhu Singh MD, PA echo & carotid dopplers [id number] 05/31/2015 05/31/2015 [facility] Prabhu Singh MD, PA echo & carotid dopplers [id number] 05/31/2015 05/31/2015 [facility] Prabhu Singh MD, PA echo & carotid dopplers [id number] 05/31/2015 05/31/2015 [facility] Prabhu Singh MD, PA echo & carotid dopplers [id number] 05/31/2015 05/31/2015 [facility] Prabhu Singh MD, PA echo & carotid dopplers [id number] 05/31/2015 05/31/2015 [facility] Unknown [id number] 06/11/2015 06/11/2015 [facility] Unknown [id number] 06/11/2015 06/11/2015 Prabhu Singh MD, PA [facility] Unknown [id number] 06/11/2015 06/11/2015 [facility] Unknown [id number] 06/11/2015 06/11/2015 [facility] Unknown [id number] 06/11/2015 06/11/2015 [facility] Unknown [id number] 06/11/2015 06/11/2015 [facility] Unknown [id number] 06/11/2015 06/11/2015 Prabhu Singh MD, PA [facility] Unknown [id number] 06/11/2015 06/11/2015 [facility] Unknown [id number] 06/11/2015 06/11/2015 Prabhu Singh MD, PA [facility] Unknown [id number] 06/11/2015 06/11/2015 Prabhu Singh MD, PA [facility] Unknown [id number] 06/11/2015 06/11/2015 [facility] Unknown [id number] 06/11/2015 06/11/2015 [facility] Unknown [id number] 06/11/2015 06/11/2015 [facility] Unknown [id number] 06/11/2015 06/11/2015 [facility] Unknown [id number] 06/11/2015 06/11/2015 [facility] Unknown [id number] 06/11/2015 06/11/2015 [facility] Unknown [id number] 06/11/2015 06/11/2015 [facility] Unknown [id number] 06/11/2015 06/11/2015 [facility] Unknown [id number] 06/11/2015 06/11/2015 [facility] Unknown [id number] 06/11/2015 06/11/2015 [facility] Unknown [id number] 06/11/2015 06/11/2015 [facility] Unknown [id number] 06/11/2015 06/11/2015 [facility] Unknown [id number] 06/11/2015 06/11/2015 [facility] Unknown [id number] 06/11/2015 06/11/2015 [facility] Unknown [id number] 06/11/2015 06/11/2015 [facility] Unknown [id number] 06/11/2015 06/11/2015 [facility] allergies [id number] 06/27/2015 06/27/2015 [facility] allergies [id number] 06/27/2015 06/27/2015 Prabhu Singh MD, PA [facility] allergies [id number] 06/27/2015 06/27/2015 [facility] allergies [id number] 06/27/2015 06/27/2015 [facility] allergies [id number] 06/27/2015 06/27/2015 [facility] allergies [id number] 06/27/2015 06/27/2015 [facility] allergies [id number] 06/27/2015 06/27/2015 Prabhu Singh MD, PA [facility] allergies [id number] 06/27/2015 06/27/2015 [facility] allergies [id number] 06/27/2015 06/27/2015 Prabhu Singh MD, PA [facility] allergies [id number] 06/27/2015 06/27/2015 Prabhu Singh MD, PA [facility] allergies [id number] 06/27/2015 06/27/2015 [facility] allergies [id number] 06/27/2015 06/27/2015 [facility] allergies [id number] 06/27/2015 06/27/2015 [facility] allergies [id number] 06/27/2015 06/27/2015 [facility] allergies [id number] 06/27/2015 06/27/2015 [facility] allergies [id number] 06/27/2015 06/27/2015 [facility] allergies [id number] 06/27/2015 06/27/2015 [facility] allergies [id number] 06/27/2015 06/27/2015 [facility] allergies [id number] 06/27/2015 06/27/2015 [facility] allergies [id number] 06/27/2015 06/27/2015 [facility] allergies [id number] 06/27/2015 06/27/2015 [facility] allergies [id number] 06/27/2015 06/27/2015 [facility] allergies [id number] 06/27/2015 06/27/2015 [facility] allergies [id number] 06/27/2015 06/27/2015 [facility] allergies [id number] 06/27/2015 06/27/2015 [facility] allergies [id number] 06/27/2015 06/27/2015 [facility] sinus infection [id number] 08/07/2015 08/07/2015 [facility] sinus infection [id number] 08/07/2015 08/07/2015 Prabhu Singh MD, PA [facility] sinus infection [id number] 08/07/2015 08/07/2015 [facility] sinus infection [id number] 08/07/2015 08/07/2015 [facility] sinus infection [id number] 08/07/2015 08/07/2015 [facility] sinus infection [id number] 08/07/2015 08/07/2015 [facility] sinus infection [id number] 08/07/2015 08/07/2015 Prabhu Singh MD, PA [facility] sinus infection [id number] 08/07/2015 08/07/2015 [facility] sinus infection [id number] 08/07/2015 08/07/2015 Prabhu Singh MD, PA [facility] sinus infection [id number] 08/07/2015 08/07/2015 Prabhu Singh MD, PA [facility] sinus infection [id number] 08/07/2015 08/07/2015 [facility] sinus infection [id number] 08/07/2015 08/07/2015 [facility] sinus infection [id number] 08/07/2015 08/07/2015 [facility] sinus infection [id number] 08/07/2015 08/07/2015 [facility] sinus infection [id number] 08/07/2015 08/07/2015 [facility] sinus infection [id number] 08/07/2015 08/07/2015 [facility] sinus infection [id number] 08/07/2015 08/07/2015 [facility] sinus infection [id number] 08/07/2015 08/07/2015 [facility] sinus infection [id number] 08/07/2015 08/07/2015 [facility] sinus infection [id number] 08/07/2015 08/07/2015 [facility] sinus infection [id number] 08/07/2015 08/07/2015 [facility] sinus infection [id number] 08/07/2015 08/07/2015 [facility] sinus infection [id number] 08/07/2015 08/07/2015 [facility] sinus infection [id number] 08/07/2015 08/07/2015 [facility] sinus infection [id number] 08/07/2015 08/07/2015 [facility] sinus infection [id number] 08/07/2015 08/07/2015 [facility] Arm hurting [id number] 10/04/2015 10/04/2015 [facility] Arm hurting [id number] 10/04/2015 10/04/2015 Prabhu Singh MD, PA [facility] Arm hurting [id number] 10/04/2015 10/04/2015 [facility] Arm hurting [id number] 10/04/2015 10/04/2015 [facility] Arm hurting [id number] 10/04/2015 10/04/2015 [facility] Arm hurting [id number] 10/04/2015 10/04/2015 [facility] Arm hurting [id number] 10/04/2015 10/04/2015 Prabhu Singh MD, PA [facility] Arm hurting [id number] 10/04/2015 10/04/2015 [facility] Arm hurting [id number] 10/04/2015 10/04/2015 Prabhu Singh MD, PA [facility] Arm hurting [id number] 10/04/2015 10/04/2015 Prabhu Singh MD, PA [facility] Arm hurting [id number] 10/04/2015 10/04/2015 [facility] Arm hurting [id number] 10/04/2015 10/04/2015 [facility] Arm hurting [id number] 10/04/2015 10/04/2015 [facility] Arm hurting [id number] 10/04/2015 10/04/2015 [facility] Arm hurting [id number] 10/04/2015 10/04/2015 [facility] Arm hurting [id number] 10/04/2015 10/04/2015 [facility] Arm hurting [id number] 10/04/2015 10/04/2015 [facility] Arm hurting [id number] 10/04/2015 10/04/2015 [facility] Arm hurting [id number] 10/04/2015 10/04/2015 [facility] Arm hurting [id number] 10/04/2015 10/04/2015 [facility] Arm hurting [id number] 10/04/2015 10/04/2015 [facility] Arm hurting [id number] 10/04/2015 10/04/2015 [facility] Arm hurting [id number] 10/04/2015 10/04/2015 [facility] Arm hurting [id number] 10/04/2015 10/04/2015 [facility] Arm hurting [id number] 10/04/2015 10/04/2015 [facility] Prabhu Singh MD, PA Follow-Up [id number] 10/11/19 16 10/11/2015 [facility] Prabhu Singh MD, PA Follow-Up [id number] 10/11/19 16 10/11/2015 Prabhu Singh MD, PA Prabhu Singh MD, PA Follow-Up [id number] 10/11/19 16 10/11/2015 [facility] Prabhu Singh MD, PA Follow-Up [id number] 10/11/19 16 10/11/2015 [facility] Prabhu Singh MD, PA Follow-Up [id number] 10/11/19 16 10/11/2015 [facility] Prabhu Singh MD, PA Follow-Up [id number] 10/11/19 16 10/11/2015 [facility] Prabhu Singh MD, PA Follow-Up [id number] 10/11/19 16 10/11/2015 Prabhu Singh MD, PA Prabhu Singh MD, PA Follow-Up [id number] 10/11/19 16 10/11/2015 [facility] Prabhu Singh MD, PA Follow-Up [id number] 10/11/19 16 10/11/2015 Prabhu Singh MD, PA Prabhu Singh MD, PA Follow-Up [id number] 10/11/19 16 10/11/2015 Prabhu Singh MD, PA Prabhu Singh MD, PA Follow-Up [id number] 10/11/19 16 10/11/2015 [facility] Prabhu Singh MD, PA Follow-Up [id number] 10/11/19 16 10/11/2015 [facility] Prabhu Singh MD, PA Follow-Up [id number] 10/11/19 16 10/11/2015 [facility] Prabhu Singh MD, PA Follow-Up [id number] 10/11/19 16 10/11/2015 [facility] Prabhu Singh MD, PA Follow-Up [id number] 10/11/19 16 10/11/2015 [facility] Prabhu Singh MD, PA Follow-Up [id number] 10/11/19 16 10/11/2015 [facility] Prabhu Singh MD, PA Follow-Up [id number] 10/11/19 16 10/11/2015 [facility] Prabhu Singh MD, PA Follow-Up [id number] 10/11/19 16 10/11/2015 [facility] Prabhu Singh MD, PA Follow-Up [id number] 10/11/19 16 10/11/2015 [facility] Prabhu Singh MD, PA Follow-Up [id number] 10/11/19 16 10/11/2015 [facility] Prabhu Singh MD, PA Follow-Up [id number] 10/11/19 16 10/11/2015 [facility] Prabhu Singh MD, PA Follow-Up [id number] 10/11/19 16 10/11/2015 [facility] Prabhu Singh MD, PA Follow-Up [id number] 10/11/19 16 10/11/2015 [facility] Prabhu Singh MD, PA Follow-Up [id number] 10/11/19 16 10/11/2015 [facility] Sore throat [id number] 10/16/2015 10/16/2015 [facility] Sore throat [id number] 10/16/2015 10/16/2015 [facility] Sore throat [id number] 10/16/2015 10/16/2015 [facility] Sore throat [id number] 10/16/2015 10/16/2015 [facility] Sore throat [id number] 10/16/2015 10/16/2015 [facility] Sore throat [id number] 10/16/2015 10/16/2015 Prabhu Singh MD, PA [facility] Sore throat [id number] 10/16/2015 10/16/2015 [facility] Sore throat [id number] 10/16/2015 10/16/2015 Prabhu Singh MD, PA [facility] Sore throat [id number] 10/16/2015 10/16/2015 Prabhu Singh MD, PA [facility] Sore throat [id number] 10/16/2015 10/16/2015 [facility] Sore throat [id number] 10/16/2015 10/16/2015 [facility] Sore throat [id number] 10/16/2015 10/16/2015 [facility] Sore throat [id number] 10/16/2015 10/16/2015 [facility] Sore throat [id number] 10/16/2015 10/16/2015 [facility] Sore throat [id number] 10/16/2015 10/16/2015 [facility] Sore throat [id number] 10/16/2015 10/16/2015 [facility] Sore throat [id number] 10/16/2015 10/16/2015 [facility] Sore throat [id number] 10/16/2015 10/16/2015 [facility] Sore throat [id number] 10/16/2015 10/16/2015 [facility] Sore throat [id number] 10/16/2015 10/16/2015 [facility] Sore throat [id number] 10/16/2015 10/16/2015 [facility] Sore throat [id number] 10/16/2015 10/16/2015 [facility] Sore throat [id number] 10/16/2015 10/16/2015 [facility] Unknown [id number] 10/19/2015 10/19/2015 [facility] Unknown [id number] 10/19/2015 10/19/2015 [facility] Unknown [id number] 10/19/2015 10/19/2015 [facility] Unknown [id number] 10/19/2015 10/19/2015 [facility] Unknown [id number] 10/19/2015 10/19/2015 Prabhu Singh MD, PA [facility] Unknown [id number] 10/19/2015 10/19/2015 [facility] Unknown [id number] 10/19/2015 10/19/2015 Prabhu Singh MD, PA [facility] Unknown [id number] 10/19/2015 10/19/2015 Prabhu Singh MD, PA [facility] Unknown [id number] 10/19/2015 10/19/2015 [facility] Unknown [id number] 10/19/2015 10/19/2015 [facility] Unknown [id number] 10/19/2015 10/19/2015 [facility] Unknown [id number] 10/19/2015 10/19/2015 [facility] Unknown [id number] 10/19/2015 10/19/2015 [facility] Unknown [id number] 10/19/2015 10/19/2015 [facility] Unknown [id number] 10/19/2015 10/19/2015 [facility] Unknown [id number] 10/19/2015 10/19/2015 [facility] Unknown [id number] 10/19/2015 10/19/2015 [facility] Unknown [id number] 10/19/2015 10/19/2015 [facility] Unknown [id number] 10/19/2015 10/19/2015 [facility] Unknown [id number] 10/19/2015 10/19/2015 [facility] Unknown [id number] 10/19/2015 10/19/2015 [facility] Unknown [id number] 10/19/2015 10/19/2015 [facility] WWE [id number] 11/09/2015 11/09/2015 [facility] WWE [id number] 11/09/2015 11/09/2015 [facility] WWE [id number] 11/09/2015 11/09/2015 [facility] WWE [id number] 11/09/2015 11/09/2015 Prabhu Singh MD, PA [facility] WWE [id number] 11/09/2015 11/09/2015 [facility] WWE [id number] 11/09/2015 11/09/2015 Prabhu Singh MD, PA [facility] WWE [id number] 11/09/2015 11/09/2015 Prabhu Signh MD, PA [facility] WWE [id number] 11/09/2015 11/09/2015 [facility] WWE [id number] 11/09/2015 11/09/2015 [facility] WWE [id number] 11/09/2015 11/09/2015 [facility] WWE [id number] 11/09/2015 11/09/2015 [facility] WWE [id number] 11/09/2015 11/09/2015 [facility] WWE [id number] 11/09/2015 11/09/2015 [facility] WWE [id number] 11/09/2015 11/09/2015 [facility] WWE [id number] 11/09/2015 11/09/2015 [facility] WWE [id number] 11/09/2015 11/09/2015 [facility] WWE [id number] 11/09/2015 11/09/2015 [facility] WWE [id number] 11/09/2015 11/09/2015 [facility] WWE [id number] 11/09/2015 11/09/2015 [facility] WWE [id number] 11/09/2015 11/09/2015 [facility] WWE [id number] 11/09/2015 11/09/2015 [facility] test results and feet jesika stinson [id number] 11/19/2015 11/19/2015 [facility] test results and feet jesika stinson [id number] 11/19/2015 11/19/2015 [facility] test results and feet hurandrew g [id number] 11/19/2015 11/19/2015 Prabhu Singh MD, PA [facility] test results and feet hurandrew g [id number] 11/19/2015 11/19/2015 [facility] test results and feet hurtin g [id number] 11/19/2015 11/19/2015 Prabhu Singh MD, PA [facility] test results and feet hurtin g [id number] 11/19/2015 11/19/2015 Prabhu Singh MD, PA [facility] test results and feet hurtin g [id number] 11/19/2015 11/19/2015 [facility] test results and feet hurtin g [id number] 11/19/2015 11/19/2015 [facility] test results and feet hurandrew g [id number] 11/19/2015 11/19/2015 [facility] test results and feet hurtin g [id number] 11/19/2015 11/19/2015 [facility] test results and feet hurtin g [id number] 11/19/2015 11/19/2015 [facility] test results and feet hurandrew g [id number] 11/19/2015 11/19/2015 [facility] test results and feet hurandrew g [id number] 11/19/2015 11/19/2015 [facility] test results and feet hurandrew g [id number] 11/19/2015 11/19/2015 [facility] test results and feet hurandrew g [id number] 11/19/2015 11/19/2015 [facility] test results and feet hurandrew g [id number] 11/19/2015 11/19/2015 [facility] test results and feet hurandrew g [id number] 11/19/2015 11/19/2015 [facility] test results and feet hurandrew g [id number] 11/19/2015 11/19/2015 [facility] test results and feet hurtin g [id number] 11/19/2015 11/19/2015 [facility] test results and feet hurtin g [id number] 11/19/2015 11/19/2015 [facility] Stomach issues [id number] 01/02/2016 01/02/2016 [facility] Stomach issues [id number] 01/02/2016 01/02/2016 rPabhu Singh MD, PA [facility] Stomach issues [id number] 01/02/2016 01/02/2016 [facility] Stomach issues [id number] 01/02/2016 01/02/2016 Prabhu Singh MD, PA [facility] Stomach issues [id number] 01/02/2016 01/02/2016 Prabhu Singh MD, PA [facility] Stomach issues [id number] 01/02/2016 01/02/2016 [facility] Stomach issues [id number] 01/02/2016 01/02/2016 [facility] Stomach issues [id number] 01/02/2016 01/02/2016 [facility] Stomach issues [id number] 01/02/2016 01/02/2016 [facility] Stomach issues [id number] 01/02/2016 01/02/2016 [facility] Stomach issues [id number] 01/02/2016 01/02/2016 [facility] Stomach issues [id number] 01/02/2016 01/02/2016 [facility] Stomach issues [id number] 01/02/2016 01/02/2016 [facility] Stomach issues [id number] 01/02/2016 01/02/2016 [facility] Stomach issues [id number] 01/02/2016 01/02/2016 [facility] Stomach issues [id number] 01/02/2016 01/02/2016 [facility] Stomach issues [id number] 01/02/2016 01/02/2016 [facility] Stomach issues [id number] 01/02/2016 01/02/2016 [facility] Stomach issues [id number] 01/02/2016 01/02/2016 [facility] [id number] 03/04/2016 03/04/2016 Prabhu Singh MD, PA [facility] Allergies [id number] 03/04/2016 03/04/2016 [facility] Allergies [id number] 03/04/2016 03/04/2016 Prabhu Singh MD, PA [facility] Allergies [id number] 03/04/2016 03/04/2016 Prabhu Singh MD, PA [facility] Allergies [id number] 03/04/2016 03/04/2016 [facility] Allergies [id number] 03/04/2016 03/04/2016 [facility] Allergies [id number] 03/04/2016 03/04/2016 [facility] Allergies [id number] 03/04/2016 03/04/2016 [facility] Allergies [id number] 03/04/2016 03/04/2016 [facility] Allergies [id number] 03/04/2016 03/04/2016 [facility] Allergies [id number] 03/04/2016 03/04/2016 [facility] Allergies [id number] 03/04/2016 03/04/2016 [facility] Allergies [id number] 03/04/2016 03/04/2016 [facility] Allergies [id number] 03/04/2016 03/04/2016 [facility] Allergies [id number] 03/04/2016 03/04/2016 [facility] Allergies [id number] 03/04/2016 03/04/2016 [facility] Allergies [id number] 03/04/2016 03/04/2016 [facility] Allergies [id number] 03/04/2016 03/04/2016 [facility] Abdominal pain [id number] 04/10/2016 04/10/2016 Prabhu Singh MD, PA [facility] Abdominal pain [id number] 04/10/2016 04/10/2016 [facility] Abdominal pain [id number] 04/10/2016 04/10/2016 Prabhu Singh MD, PA [facility] Abdominal pain [id number] 04/10/2016 04/10/2016 Prabhu Singh MD, PA [facility] Abdominal pain [id number] 04/10/2016 04/10/2016 [facility] Abdominal pain [id number] 04/10/2016 04/10/2016 [facility] Abdominal pain [id number] 04/10/2016 04/10/2016 [facility] Abdominal pain [id number] 04/10/2016 04/10/2016 [facility] Abdominal pain [id number] 04/10/2016 04/10/2016 [facility] Abdominal pain [id number] 04/10/2016 04/10/2016 [facility] Abdominal pain [id number] 04/10/2016 04/10/2016 [facility] Abdominal pain [id number] 04/10/2016 04/10/2016 [facility] Abdominal pain [id number] 04/10/2016 04/10/2016 [facility] Abdominal pain [id number] 04/10/2016 04/10/2016 [facility] Abdominal pain [id number] 04/10/2016 04/10/2016 [facility] Abdominal pain [id number] 04/10/2016 04/10/2016 [facility] Abdominal pain [id number] 04/10/2016 04/10/2016 [facility] Unknown [id number] 04/10/2016 04/10/2016 Prabhu Singh MD, PA [facility] Unknown [id number] 04/10/2016 04/10/2016 [facility] Unknown [id number] 04/10/2016 04/10/2016 Prabhu Singh MD, PA [facility] Unknown [id number] 04/10/2016 04/10/2016 Prabhu Singh MD, PA [facility] Unknown [id number] 04/10/2016 04/10/2016 [facility] Unknown [id number] 04/10/2016 04/10/2016 [facility] Unknown [id number] 04/11/2016 04/11/2016 [facility] Unknown [id number] 04/11/2016 04/11/2016 [facility] Unknown [id number] 04/11/2016 04/11/2016 [facility] Unknown [id number] 04/11/2016 04/11/2016 [facility] Unknown [id number] 04/11/2016 04/11/2016 [facility] Unknown [id number] 04/11/2016 04/11/2016 [facility] Unknown [id number] 04/11/2016 04/11/2016 [facility] Unknown [id number] 04/11/2016 04/11/2016 [facility] Unknown [id number] 04/11/2016 04/11/2016 [facility] Unknown [id number] 04/11/2016 04/11/2016 [facility] Unknown [id number] 04/11/2016 04/11/2016 [facility] Prabhu Singh MD, PA Follow-Up [id number] 04/17/20 16 04/17/2016 Prabhu Singh MD, PA Prabhu Singh MD, PA Follow-[facility] [id number] 04/17/20 16 04/17/2016 Prabhu Singh MD, PA Prabhu Singh MD, PA Follow-Up [id number] 04/17/20 16 04/17/2016 Prabhu Singh MD, PA Prabhu Singh MD, PA Follow-Up [id number] 04/17/20 16 04/17/2016 [facility] Prabhu Singh MD, PA Follow-Up [id number] 04/17/20 16 04/17/2016 [facility] Prabhu Singh MD, PA Follow-Up [id number] 04/17/20 16 04/17/2016 [facility] Prabhu Singh MD, PA Follow-Up [id number] 04/17/20 16 04/17/2016 [facility] Prabhu Singh MD, PA Follow-Up [id number] 04/17/20 16 04/17/2016 [facility] Prabhu Singh MD, PA Follow-Up [id number] 04/17/20 16 04/17/2016 [facility] Prabhu Singh MD, PA Follow-Up [id number] 04/17/20 16 04/17/2016 [facility] Prabhu Singh MD, PA Follow-Up [id number] 04/17/20 16 04/17/2016 [facility] Prabhu Singh MD, PA Follow-Up [id number] 04/17/20 16 04/17/2016 [facility] Prabhu Singh MD, PA Follow-Up [id number] 04/17/20 16 04/17/2016 [facility] Prabhu Singh MD, PA Follow-Up [id number] 04/17/20 16 04/17/2016 [facility] Prabhu Singh MD, PA Follow-Up [id number] 04/17/20 16 04/17/2016 [facility] Prabhu Singh MD, PA Office stress test [id number] 04/25/20 16 04/25/2016 Prabhu Singh MD, PA Prabhu Singh MD, PA Office stress test [id number] 04/25/20 16 04/25/2016 Prabhu Singh MD, PA Prabhu Singh MD, PA Office stress test [id number] 04/25/20 16 04/25/2016 [facility] Prabhu Singh MD, PA arterial doppler [id number] 04/25/20 16 04/25/2016 Prabhu Singh MD, PA Prabhu Singh MD, PA Office stress test [id number] 04/25/20 16 04/25/2016 [facility] Prabhu Singh MD, PA Office stress test [id number] 04/25/20 16 04/25/2016 [facility] Prabhu Singh MD, PA Office stress test [id number] 04/25/20 16 04/25/2016 [facility] Prabhu Singh MD, PA Office stress test [id number] 04/25/20 16 04/25/2016 [facility] Prabhu Singh MD, PA Office stress test [id number] 04/25/20 16 04/25/2016 [facility] Prabhu Singh MD, PA arterial doppler [id number] 04/25/20 16 04/25/2016 [facility] Prabhu Singh MD, PA Office stress test [id number] 04/25/20 16 04/25/2016 [facility] Prabhu Singh MD, PA Office stress test [id number] 04/25/20 16 04/25/2016 [facility] Prabhu Singh MD, PA Office stress test [id number] 04/25/20 16 04/25/2016 [facility] Prabhu Singh MD, PA Office stress test [id number] 04/25/20 16 04/25/2016 [facility] Prabhu Singh MD, PA Office stress test [id number] 04/25/20 16 04/25/2016 [facility] Prabhu Singh MD, PA Office stress test [id number] 04/25/20 16 04/25/2016 [facility] Prabhu Singh MD, PA arterial doppler [id number] 04/25/20 16 04/25/2016 [facility] Prabhu Singh MD, PA arterial doppler [id number] 04/25/20 16 04/25/2016 [facility] Prabhu Singh MD, PA arterial doppler [id number] 04/25/20 16 04/25/2016 [facility] Prabhu Singh MD, PA arterial doppler [id number] 04/25/20 16 04/25/2016 [facility] Prabhu Singh MD, PA arterial doppler [id number] 04/25/20 16 04/25/2016 [facility] Prabhu Singh MD, PA arterial doppler [id number] 04/25/20 16 04/25/2016 [facility] Prabhu Singh MD, PA arterial doppler [id number] 04/25/20 16 04/25/2016 [facility] Prabhu Singh MD, PA arterial doppler [id number] 04/25/20 16 04/25/2016 [facility] Prabhu Singh MD, PA arterial doppler [id number] 04/25/20 16 04/25/2016 [facility] Prabhu Singh MD, PA arterial doppler [id number] 04/25/20 16 04/25/2016 [facility] Prabhu Singh MD, PA arterial doppler [id number] 04/25/20 16 04/25/2016 [facility] Stomach problems [id number] 04/30/2016 04/30/2016 [facility] Stomach problems [id number] 04/30/2016 04/30/2016 [facility] Stomach problems [id number] 04/30/2016 04/30/2016 [facility] Stomach problems [id number] 04/30/2016 04/30/2016 [facility] Stomach problems [id number] 04/30/2016 04/30/2016 [facility] Stomach problems [id number] 04/30/2016 04/30/2016 [facility] Stomach problems [id number] 04/30/2016 04/30/2016 [facility] Stomach problems [id number] 04/30/2016 04/30/2016 [facility] Stomach problems [id number] 04/30/2016 04/30/2016 [facility] Stomach problems [id number] 04/30/2016 04/30/2016 [facility] Stomach problems [id number] 04/30/2016 04/30/2016 [facility] Stomach problems [id number] 04/30/2016 04/30/2016 [facility] Unknown [id number] 06/10/2016 06/10/2016 [facility] Unknown [id number] 06/10/2016 06/10/2016 [facility] Unknown [id number] 06/10/2016 06/10/2016 [facility] Unknown [id number] 06/10/2016 06/10/2016 [facility] Unknown [id number] 06/10/2016 06/10/2016 [facility] Unknown [id number] 06/10/2016 06/10/2016 [facility] Unknown [id number] 06/10/2016 06/10/2016 [facility] Unknown [id number] 06/10/2016 06/10/2016 [facility] Unknown [id number] 06/10/2016 06/10/2016 [facility] Unknown [id number] 06/10/2016 06/10/2016 [facility] Unknown [id number] 06/10/2016 06/10/2016 [facility] Unknown [id number] 06/12/2016 06/12/2016 [facility] Unknown [id number] 06/12/2016 06/12/2016 [facility] Unknown [id number] 06/12/2016 06/12/2016 [facility] Unknown [id number] 06/12/2016 06/12/2016 [facility] Unknown [id number] 06/12/2016 06/12/2016 [facility] Unknown [id number] 06/12/2016 06/12/2016 [facility] Unknown [id number] 06/12/2016 06/12/2016 [facility] Unknown [id number] 06/12/2016 06/12/2016 [facility] Unknown [id number] 06/12/2016 06/12/2016 [facility] Unknown [id number] 06/12/2016 06/12/2016 [facility] preop clearance and cough [id number] 06/24/2016 06/24/2016 [facility] preop clearance and cough [id number] 06/24/2016 06/24/2016 [facility] preop clearance and cough [id number] 06/24/2016 06/24/2016 [facility] preop clearance and cough [id number] 06/24/2016 06/24/2016 [facility] preop clearance and cough [id number] 06/24/2016 06/24/2016 [facility] preop clearance and cough [id number] 06/24/2016 06/24/2016 [facility] preop clearance and cough [id number] 06/24/2016 06/24/2016 [facility] preop clearance and cough [id number] 06/24/2016 06/24/2016 [facility] Medical Clearance [id number] 06/24/2016 06/24/2016 [facility] Medical Clearance [id number] 06/24/2016 06/24/2016 [facility] Medical Clearance [id number] 06/24/2016 06/24/2016 [facility] Medical Clearance [id number] 06/24/2016 06/24/2016 [facility] Medical Clearance [id number] 06/24/2016 06/24/2016 [facility] Medical Clearance [id number] 06/24/2016 06/24/2016 [facility] Medical Clearance [id number] 06/24/2016 06/24/2016 [facility] Medical Clearance [id number] 06/24/2016 06/24/2016 [facility] Medical Clearance [id number] 06/24/2016 06/24/2016 [facility] Unknown [id number] 07/03/2016 07/03/2016 [facility] Unknown [id number] 07/03/2016 07/03/2016 [facility] Unknown [id number] 07/03/2016 07/03/2016 [facility] Unknown [id number] 07/03/2016 07/03/2016 [facility] Unknown [id number] 07/03/2016 07/03/2016 [facility] Unknown [id number] 07/03/2016 07/03/2016 [facility] Unknown [id number] 07/03/2016 07/03/2016 [facility] ABD PAIN [id number] 07/07/2016 07/07/2016 [facility] ABD PAIN [id number] 07/07/2016 07/07/2016 [facility] ABD PAIN [id number] 07/07/2016 07/07/2016 [facility] ABD PAIN [id number] 07/07/2016 07/07/2016 [facility] ABD PAIN [id number] 07/07/2016 07/07/2016 [facility] ABD PAIN [id number] 07/07/2016 07/07/2016 [facility] abd pain [id number] 08/04/2016 08/04/2016 [facility] abd pain [id number] 08/04/2016 08/04/2016 [facility] abd pain [id number] 08/04/2016 08/04/2016 [facility] abd pain [id number] 08/04/2016 08/04/2016 [facility] Unknown [id number] 08/05/2016 08/05/2016 [facility] Unknown [id number] 08/05/2016 08/05/2016 [facility] Unknown [id number] 08/05/2016 08/05/2016 [facility] Unknown [id number] 08/05/2016 08/05/2016 [facility] Unknown [id number] 08/05/2016 08/05/2016 [facility] ALLERGIES [id number] 09/15/2016 09/15/2016 [facility] ALLERGIES [id number] 09/15/2016 09/15/2016 [facility] ALLERGIES [id number] 09/15/2016 09/15/2016 [facility] Unknown [id number] 09/16/2016 09/16/2016 [facility] Unknown [id number] 09/16/2016 09/16/2016 [facility] Unknown [id number] 09/16/2016 09/16/2016 [facility] stomach pain [id number] 09/17/2016 09/17/2016 [facility] Procedures No Data Provided for This Section Assessment and Plan No Data Provided for This Section Plan of Care No Data Provided for This Section Social History Social History Date Source Social History ElementQualifiersDate Rep orted Flu Vaccine: . 2015Sep 17, 2016 Last Colonoscopy: . 2015Sep 17, 2016 Ethnicity . Status , Is greek your prim terrell language? Yes Sep 17, 2016 Last Bone Density: . 2010Sep 17, 2016 children . 2 Sep 17, 2016 Tobacco Use: . Are you a: current smoker electronic cigarette Sep 17, 2016 Use of recreational / street drugs? . Answer: No Sep 17, 2016 Marital Status: . Sep 17, 2016 Do you drink alcohol? . Status: Yes, Type: MARGARITAS, How o ften? Socially Sep 17, 2016 Occupation: employed. [employer] Sep 17, 2016 09/17/2016 [facility] Social History ElementQualifiersDate Rep orted Tobacco Use: . Are you a: former smoker quit in 10/13 13 after the [place] but does e-cigarettes Apr 17, 2016 Marital Status: . Apr 17, 2016 Do you drink alcohol? . Status: Yes moderately/weekends Apr 17, 2016 04/17/2016 Prabhu Singh MD, P A Family History Value Date S ource QualifierDescriptionCommentDate Reported Maternal Grandmother Comment not available Sep 17, 2016 Paternal Grandmother Comment not available Sep 17, 2016 Siblings uterine cancer Sep 17, 2016 Maternal Grandfather Comment not available Sep 17, 2016 Children alive son-gout Sep 17, 2016 Father cardiomegaly Sep 17, 2016 Paternal Grandfather Comment not available Sep 17, 2016 Mother lung cancer, bone cancer, brain cancer Sep 17, 2016 Other: Comment not available Sep 17, 2016 09/18/2016 [facility] QualifierDescriptionCommentDate Reported Maternal Grandmother Comment not available Jul 07, 2016 Paternal Grandmother Comment not available Jul 07, 2016 Siblings uterine cancer Jul 07, 2016 Maternal Grandfather Comment not available Jul 07, 2016 Children alive son-gout Jul 07, 2016 Father cardiomegaly Jul 07, 2016 Paternal Grandfather Comment not available Jul 07, 2016 Mother lung cancer, bone cancer, brain cancer Jul 07, 2016 Other: Comment not available Jul 07, 2016 07/10/2016 [facility] QualifierDescriptionCommentDate Reported Maternal Grandmother Comment not available Jul 07, 2016 Paternal Grandmother Comment not available Jul 07, 2016 Siblings uterine cancer Jul 07, 2016 Maternal Grandfather Comment not available Jul 07, 2016 Children alive son-gout Jul 07, 2016 Father cardiomegaly Jul 07, 2016 Paternal Grandfather Comment not available Jul 07, 2016 Mother lung cancer, bone cancer, brain cancer Jul 07, 2016 Other: Comment not available Jul 07, 2016 07/09/2016 [facility] QualifierDescriptionCommentDate Reported Maternal Grandmother Comment not available Apr 30, 2016 Paternal Grandmother Comment not available Apr 30, 2016 Siblings uterine cancer Apr 30, 2016 Maternal Grandfather Comment not available Apr 30, 2016 Children alive son-gout Apr 30, 2016 Father cardiomegaly Apr 30, 2016 Paternal Grandfather Comment not available Apr 30, 2016 Mother lung cancer, bone cancer, brain cancer Apr 30, 2016 Other: Comment not available Apr 30, 2016 05/03/2016 [facility] QualifierDescriptionCommentDate Reported Maternal Grandmother Comment not available Mar 04, 2016 Paternal Grandmother Comment not available Mar 04, 2016 Siblings uterine cancer Mar 04, 2016 Maternal Grandfather Comment not available Mar 04, 2016 Children alive son-gout Mar 04, 2016 Father cardiomegaly Mar 04, 2016 Paternal Grandfather Comment not available Mar 04, 2016 Mother lung cancer, bone cancer, brain cancer Mar 04, 2016 Other: Comment not available Mar 04, 2016 03/07/2016 [facility] QualifierDescriptionCommentDate Reported Maternal Grandmother Comment not available January 02, 2016 Paternal Grandmother Comment not available January 02, 2016 Siblings uterine cancer January 02, 2016 Maternal Grandfather Comment not available January 02, 2016 Children alive son-gout January 02, 2016 Father cardiomegaly January 02, 2016 Paternal Grandfather Comment not available January 02, 2016 Mother lung cancer, bone cancer, brain cancer January 02, 2016 Other: Comment not available January 02, 2016 01/06/2016 [facility] Advance Directives No Data Provided for This Section Functional Status No Data Provided for This Section
--- OUTSIDE RECORDS SUMMARY | 2019-12-08 09:44 | XMS REPORT ---
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 Active Problem Coronary artery disease invo lving [place] coronary artery of [place] heart, angina presence unspecified I25.10 Activ e Problem Gastroesophageal reflux disease, esophag itis presence not specified K21.9 Active Problem Osteopenia of spine M85.88 Active Problem Hypertensive heart disease without heart failure I11.9 Active Problem History of [place] (myocardial infarction) I25.2 Active Problem Constipation, unspecified constipation type K59.00 Active Problem Non morbid obesity due to excess calories E66.09 Active Medications No Known Medications Results No Known Results Summary Purpose eClinicalWorks Submission
--- OUTSIDE RECORDS SUMMARY | 2019-12-08 09:44 | XMS REPORT ---
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 Active Problem Hyperlipidemia, unspecified hyperlipidemia E78.5 Active Problem Ulcerative colitis with complication, unspecified loca tion K51.919 Active Problem Seasonal allergic rhinitis, unspecified allergic rhinitis trigger J30.2 Active Problem BMI 37.0-37.9, adult Z68.37 Active Problem Osteopenia of spine M85.88 Active Problem Non morbid obesity due to excess calories E66.09 Active Problem Polyp of colon, unspecified part of colon, unspecified type K63.5 Active Problem Gastroesophageal reflux disease, esophag itis presence not specified K21.9 Active Problem History of [place] (myocardial infarction) I25.2 Active Problem Rheumatoid arthritis M06.9 Active Assessment Seasonal allergic rhinitis, unspecified allergic rhinitis trigger J30.2 Active Problem GUCCI (obstructive sleep apnea) G47.33 Active Problem Hypertensive heart disease without heart failure I11.9 Active Problem Coronary artery disease invo lving [place] coronary artery of [place] heart, angina presence unspecified I25.10 Activ e Medications Medication Code System Code Instructions Start Date End Date Status Dosage Montelukast Sodium [facility] [id number] 10 mg Orally Once a day Mar 31, 2017 Active 1 tablet in the evening Results No Known Results Summary Purpose eClinicalWorks Submission
--- OUTSIDE RECORDS SUMMARY | 2019-12-08 09:44 | XMS REPORT ---
Author Author Sujey Lopez Organization [employer] Address Unknown Phone Unavailable Care Team Providers Care Doctor Assistant Name Role Phone Leydi Lopez CP Unavailable Allergies, Adverse Reactions, Alerts Substance Reaction Event Type N.K.D.A. Info Not Available Non Drug Allergy Problems Problem Type Condition Code Onset Dates Condition Statu s Assessment Screening for colon cancer Z12.11 A ctive Assessment Screening for breast cancer Z12.39 Active Assessment Gastroesophageal reflux disease, esophag itis presence not specified K21.9 Active Problem Constipation, unspecified constipation type K59.00 Active Assessment Seasonal allergic rhinitis, unspecified allergic rhinitis trigger J30.2 Active Problem Non morbid obesity due to excess calories E66.09 Active Assessment Ulcerative colitis with complication, unspecified loca tion K51.919 Active Problem Rheumatoid arthritis M06.9 Active Problem GUCCI (obstructive sleep apnea) G47.33 Active Problem Hyperlipidemia, unspecified hyperlipidemia E78.5 Active Problem Seasonal allergic rhinitis, unspecified allergic rhinitis trigger J30.2 Active Problem Polyp of colon, unspecified part of colon, unspecified type K63.5 Active Assessment Rheumatoid arthritis M06.9 Active Assessment Constipation, unspecified constipation type K59.00 Active Problem Ulcerative colitis with complication, unspecified loca tion K51.919 Active Assessment Osteopenia of spine M85.88 Active Problem Chronic obstructive pulmonary disease, unspecified 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 Active Problem Coronary artery disease invo lving [place] coronary artery of [place] heart, angina presence unspecified I25.10 Activ e Problem Gastroesophageal reflux disease, esophag itis presence not specified K21.9 Active Problem Osteopenia of spine M85.88 Active Assessment GUCCI (obstructive sleep apnea) G47.33 Active Assessment Coronary artery disease invo lving [place] coronary artery of [place] heart, angina presence unspecified I25.10 Activ e Assessment Hyperlipidemia, unspecified hyperlipidemia E78.5 Active Assessment Hypertensive heart disease without heart failure I11.9 Active Problem Hypertensive heart disease without heart failure I11.9 Active Problem History of [place] (myocardial infarction) I25.2 Active Assessment Chronic obstructive pulmonary disease, unspecified 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 Active Assessment Encntr for general adult medical exam w/o abnormal fin dings Z00.00 Active Medications Medication Code System Code Instructions Start Date End Date Status Dosage Spiriva Respimat [facility] 6247-0116-55 2.5 mcg inhalation QD January 28 7 Active 2 inhalations Fluticasone Propionate [facility] [address]-48 50 MCG/ACT Nasall y Once a day Aug 07, 2015 Active 1 spray in each nost ril Carvedilol [facility] [address]-24 3.125 MG Orally once a day December 25 13 Active 1 tablet with food Cyclobenzaprine HCl [facility] [address]-15 7.5 MG Orally Active 1 tablet as needed Clopidogrel Bisulfate [facility] [address]-40 75 MG Orally Once a day December 25, 2012 Active 1 tablet Sulfasalazine [facility] [address]-04 500 mg Orally Activ e 3 tablet Esomeprazole Magnesium [facility] [address]-86 40 MG Orally daily Active 1 tablet Nucynta [facility] [address]-39 75 MG Orally prn Aug 27, 2015 Acti ve 1 tablet Ranitidine HCl [facility] [address]-65 150 MG Orally QD-BID PRN Mar 272015 Active 1 capsule Tizanidine HCl [facility] [address]-17 4 MG Orally Active 1 capsule as needed Gabapentin [facility] [address]-25 600 MG Orally as needed (prn) September 24, 2016 Active 1 tablet Vitamin D [facility] [address]-93 6000 twice a day (bid) Active 1 capsule Aspir-Low [facility] [address]-61 81 MG Orally Once a day December 25, 2012 Active 1 tablet Simvastatin [facility] [address]-51 40 MG Orally Once a day December 25, 2012 Active 1 tablet in the evening Levocetirizine Dihydrochloride [facility] [address]-83 5 MG Oral ly Once a day January 09, 2017 Jun 08, 2017 Active 1 tablet in the even ing Plavix [facility] [address]-00 75 MG Orally Once a day Ac tive 1 tablet Albuterol Sulfate HFA [facility] [address]-01 108 (90 Ba se) MCG/ACT Inhalation every 4-6 hrs PRN Jul 07, 2016 Active 2 puffs as neede d Symbicort [facility] [address]-56 160-4.5 MCG/ACT Inhalation Twice a day Jul 07, 2016 Apr 06, 2017 Active 2 puffs Multivitamin [facility] 76456-60037 Active not def ined Vital Signs Date/Time: January 28, 2017 BMI 37.03 Index Weight 196 lbs Height 61 in Cardiac Monitoring Heart Rate 54 /min Blood Pressure Diastolic 66 mm Hg Blood Pressure Systolic 108 mm Hg Results Name Result Date Reference Range Unit Abnormali ty Flag EKG Summary Purpose eClinicalWorks Submission
--- OUTSIDE RECORDS SUMMARY | 2019-12-08 09:44 | XMS REPORT ---
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 Active Problem Coronary artery disease invo lving [place] coronary artery of [place] heart, angina presence unspecified I25.10 Activ e Problem Gastroesophageal reflux disease, esophag itis presence not specified K21.9 Active Problem Osteopenia of spine M85.88 Active Assessment Seasonal allergic rhinitis, unspecified allergic rhinitis trigger J30.2 Active Assessment Rheumatoid arthritis M06.9 Active Assessment Headache, unspecified headache type R51 Active Problem Hypertensive heart disease without heart failure I11.9 Active Problem History of [place] (myocardial infarction) I25.2 Active Assessment Chronic obstructive pulmonary disease, unspecified 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 Active Problem Constipation, unspecified constipation type K59.00 Active Assessment Hypertensive heart disease without heart failure I11.9 Active Problem Non morbid obesity due to excess calories E66.09 Active Medications Medication Code System Code Instructions Start Date End Date Status Dosage Albuterol Sulfate HFA [facility] [address]-16 108 (90 Ba se) MCG/ACT Inhalation every 4-6 hrs PRN Jul 07, 2016 Active 2 puffs as neede d Carvedilol [facility] [address]-46 3.125 MG Orally once a day Active 1 tablet with food Ranitidine HCl [facility] [address]-76 150 MG Orally QD-BID PRN Mar 272015 Active 1 capsule Plavix [facility] [address]-98 75 MG Orally Once a day Ac tive 1 tablet Sulfasalazine [facility] [address]-49 500 mg Orally 2 in the morning and 2 at night Active 1 tablet Symbicort [facility] [address]-59 160-4.5 MCG/ACT Inhalation Twice a day Jul 07, 2016 Apr 06, 2017 Active 2 puffs Simvastatin [facility] [address]-61 40 MG Orally Once a day Active 1 tablet in the evening Fluticasone Propionate [facility] [address]-20 50 MCG/ACT Nasall y Once a day Aug 07, 2015 Active 1 spray in each nost ril Montelukast Sodium [facility] [address]-61 10 MG Orally Once a day Sep Active 1 tablet in the evening Clopidogrel Bisulfate [facility] [address]-64 75 MG Orally Once a day Active 1 tablet Aspir-Low [facility] [address]-74 81 MG Orally Once a day Active 1 tablet Nucynta [facility] [address]-00 75 MG Orally prn Active 1 tablet Vital Signs Date/Time: December 30, 2016 BMI 36.65 Index Weight 194 lbs Height 61 in Cardiac Monitoring Heart Rate 86 /min Blood Pressure Diastolic 70 mm Hg Blood Pressure Systolic 105 mm Hg Results Name Result Date Reference Range Unit Abnormali ty Flag [place] 1MGx4 RAPID STREP ----Negative Negative 20161230 CBC ----MCHC 34.0 20161230 ----MCH 32.8H 20161230 ----Platelets 168 20161230 ----RDW 13.3 20161230 ----NEUTROPHILS MID-0.7,GRA-4.9 20161230 ----Hematocrit 52.1 20161230 ----MCV 96.5 20161230 ----RBC 5.40 20161230 ----Hemoglobin 17.7 20161230 ----WBC 7.4 20161230 Summary Purpose eClinicalWorks Submission
--- OUTSIDE RECORDS SUMMARY | 2019-12-08 09:44 | XMS REPORT ---
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
--- OUTSIDE RECORDS SUMMARY | 2019-12-08 09:44 | XMS REPORT ---
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 Active Problem Coronary artery disease invo lving [place] coronary artery of [place] heart, angina presence unspecified I25.10 Activ e Problem Gastroesophageal reflux disease, esophag itis presence not specified K21.9 Active Problem Osteopenia of spine M85.88 Active Problem Hypertensive heart disease without heart failure I11.9 Active Problem History of [place] (myocardial infarction) I25.2 Active Assessment Cough R05 Active Problem Constipation, unspecified constipation type K59.00 Active Assessment Seasonal allergic rhinitis, unspecified chronicity, unspecified trigger J30.2 Active Problem Non morbid obesity due to excess calories E66.09 Active Medications Medication Code System Code Instructions Start Date End Date Status Dosage Ranitidine HCl [facility] [address]-24 150 MG Orally QD-BID PRN Mar 272015 Active 1 capsule Augmentin [facility] [address]-61 875-125 MG Orally every 12 hrs Ju ne 2016January 21, 2017 Active 1 tablet Albuterol Sulfate HFA [facility] [address]-95 108 (90 Ba se) MCG/ACT Inhalation every 4-6 hrs PRN Jul 07, 2016 Active 2 puffs as neede d Nucynta [facility] [address]-76 75 MG Orally prn Aug 27, 2015 Acti ve 1 tablet Symbicort [facility] [address]-82 160-4.5 MCG/ACT Inhalation Twice a day Jul 07, 2016 Apr 06, 2017 Active 2 puffs Sulfasalazine [facility] [address]-58 500 mg Orally 2 in the morning and 2 at night Active 1 tablet Clopidogrel Bisulfate [facility] [address]-11 75 MG Orally Once a day December 25, 2012 Active 1 tablet Fluticasone Propionate [facility] [address]-74 50 MCG/ACT Nasall y Once a day Aug 07, 2015 Active 1 spray in each nost ril Simvastatin [facility] [address]-09 40 MG Orally Once a day December 25, 2012 Active 1 tablet in the evening Aspir-Low [facility] [address]-25 81 MG Orally Once a day December 25, 2012 Active 1 tablet Multivitamin [facility] 70[address]-86015 Active not def ined Vitamin D [facility] [address]-67 6000 twice a day (bid) Active 1 capsule Carvedilol [facility] [address]-63 3.125 MG Orally once a day December 25 13 Active 1 tablet with food Gabapentin [facility] [address]-39 600 MG Orally as needed (prn) September 24, 2016 Active 1 tablet Montelukast Sodium [facility] [address]-43 10 MG Orally Once a day Sep Active 1 tablet in the evening Plavix [facility] [address]-10 75 MG Orally Once a day Ac tive 1 tablet Levocetirizine Dihydrochloride [facility] [address]-36 5 MG Oral ly Once a day January 09, 2017 Jun 08, 2017 Active 1 tablet in the even ing Vital Signs Date/Time: January 14, 2017 BMI 37.41 Index Weight 198 lbs Height 61 in Temperature 98.3 F Cardiac Monitoring Heart Rate 66 /min Blood Pressure Diastolic 64 mm Hg Blood Pressure Systolic 104 mm Hg Results No Known Results Summary Purpose eClinicalWorks Submission
--- OUTSIDE RECORDS SUMMARY | 2019-12-08 09:44 | XMS REPORT ---
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 Active Problem Coronary artery disease invo lving [place] coronary artery of [place] heart, angina presence unspecified I25.10 Activ e Problem Gastroesophageal reflux disease, esophag itis presence not specified K21.9 Active Problem Osteopenia of spine M85.88 Active Problem Hypertensive heart disease without heart failure I11.9 Active Problem History of [place] (myocardial infarction) I25.2 Active Problem Constipation, unspecified constipation type K59.00 Active Assessment Chronic obstructive pulmonary disease, unspecified 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
--- OUTSIDE RECORDS SUMMARY | 2019-12-08 09:45 | XMS REPORT ---
Author Author Sujey Lopez [facility] eClinicalWorks Address Unknown Phone Unavailable Care Team Providers Care Quality Process Lead Name Role Phone Leydi Lopez CP Unavailable Encounters Encounter Location Date Unknown [facility] October 19, 2015 Stomach problems [facility] Apr 30, 2016 Unknown [facility] Jun 10, 2016 Unknown [facility] Apr 10, 2016 Abdominal pain [facility] Apr 10, 2016 Stomach issues [facility] January 02, 2016 Allergies [facility] Mar 04, 2016 WWE [facility] November 09, 2015 test results and feet hurting [facility] November 19, 2015 Unknown [facility] Jun 12, 2016 ECHO RESULTS [facility] May 14, 2015 Unknown [facility] Jun 11, 2015 allergies [facility] Jun 27, 2015 sinus infection [facility] Aug 07, 2015 Headaches [facility] Mar 07, 2015 ARTERIAL/ [facility] Apr 24, 2015 Needs call back from Medical Staff [facility] May 07, 2015 Follow-Up Prabhu Singh [place], [place] May 24, 2015 Medical Clearance [facility] Jun 24, 2016 Arm hurting [facility] October 04, 2015 Sore throat [facility] October 16, 2015 arterial doppler Prabhu Singh MD, [place] Apr 25, 2016 echo & carotid dopplers Prabhu Singh [place], [place] May 31, 2015 Follow-Up Prabhu Singh [place], [place] October 11, 2015 Follow-Up Prabhu Singh [place], [place] Apr 17, 2016 Office stress test Prabhu Singh MD, [place] Apr 25, 2016 Problems Problem Type Condition ICD-9 Code Onset Dates Condition Statu s Problem Non morbid obesity due to excess calories E66.09 Active Problem Hyperlipidemia, unspecified hyperlipidemia E78.5 Active Problem Rheumatoid arthritis M06.9 Active Problem Gastroesophageal reflux disease, esophag itis presence not specified K21.9 Active Problem Osteopenia of spine M85.88 Active Problem Polyp of colon, unspecified part of colon, unspecified type K63.5 Active Problem Coronary artery disease invo lving [place] coronary artery of [place] heart, angina presence unspecified I25.10 Activ e Problem GUCCI (obstructive sleep apnea) G47.33 Active Problem Allergic rhinitis J30.9 Active Problem Chronic obstructive pulmonary disease, unspecified 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 2015Jun 24, 2016 Last Colonoscopy: . 2015Jun 24, 2016 Ethnicity . Status , Is american your prim terrell language? Yes Jun 24, 2016 Last Bone Density: . 2010Jun 24, 2016 children . 2 Jun 24, 2016 Tobacco Use: . Are you a: former smoker 10/14/12 Jun 24, 2016 Use of recreational / street drugs? . Answer: No Jun 24, 2016 Marital Status: . Jun 24, 2016 Do you drink alcohol? . Status: Yes, Type: MARGARITAS, How often? Socially Jun 24, 2016 Occupation: employed. [employer] Jun 24, 2016 Summary Purpose eClinicalWorks Submission
--- OUTSIDE RECORDS SUMMARY | 2019-12-08 09:45 | XMS REPORT ---
Author Author Sujey Munoz [facility] eClinicalWorks Address Unknown Phone Unavailable Care Team Providers Care Alumina Plant Supervisor Name Role Phone Ivan Munoz CP Unavailable Allergies, Adverse Reactions, Alerts Substance Reaction Event Type N.K.D.A. Info Not Available Non Drug Allergy Encounters Encounter Location Date ECHO RESULTS [facility] May 14, 2015 Unknown [facility] Jun 11, 2015 allergies [facility] Jun 27, 2015 sinus infection [facility] Aug 07, 2015 Headaches [facility] Mar 07, 2015 ARTERIAL/ [facility] Apr 24, 2015 Needs call back from Medical Staff [facility] May 07, 2015 Unknown [facility] October 19, 2015 Arm hurting [facility] October 04, 2015 Sore throat [facility] October 16, 2015 echo & carotid dopplers Prabhu Singh [place], [place] May 31, 2015 Follow-Up Prabhu Singh [place], [place] October 11, 2015 Stomach issues [facility] January 02, 2016 Follow-Up Prabhu Singh [place], [place] May 24, 2015 WWE [facility] November 09, 2015 test results and feet hurting [facility] November 19, 2015 Problems Problem Type Condition ICD-9 Code Onset Dates Condition Statu s Problem Non morbid obesity due to excess calories E66.09 Active Problem Hyperlipidemia, unspecified hyperlipidemia E78.5 Active Problem Rheumatoid arthritis M06.9 Active Problem Thrombocytopenia D69.6 Active Problem Osteopenia of spine M85.88 Active Problem Leukopenia, unspecified type D72.819 Active Problem Coronary artery disease invo lving [place] coronary artery of [place] heart, angina presence unspecified I25.10 Activ e Problem GUCCI (obstructive sleep apnea) G47.33 Active Problem Allergic rhinitis J30.9 Active Problem Chronic obstructive pulmonary disease, unspecified SOLDERER DIPPER D type J44.9 Active Assessment Constipation K59.00 Active Problem Hypertensive heart disease without heart failure I11.9 Active Problem History of [place] (myocardial infarction) I25.2 Active Assessment Constipation by delayed colonic transit K59.01 Active Problem Constipation, unspecified constipation type K59.00 Active Medications Medication Code System Code Instructions Start Date End Date Status Dosage Carvedilol [facility] [address]-68 3.125 MG Orally Twice a day Active 1 tablet with food Aspir-Low [facility] [address]-55 81 MG Orally Once a day Active 1 tablet Imitrex [facility] [address]-73 100 mg Orally at onset headache may repeat in 2 hrs max 2 a day Aug 21, 2015 Active 1 tablet Nucynta [facility] [address]-98 75 MG Orally every 6 hrs Active 1 tablet Simvastatin [facility] [address]-55 40 MG Orally Once a day Active 1 tablet in the evening Clopidogrel Bisulfate [facility] [address]-93 75 MG Orally Once a day Active 1 tablet Fluticasone Propionate [facility] [address]-49 50 MCG/ACT Nasall y Once a day Aug 07, 2015 Active 1 spray in each nost ril ProAir HFA [facility] [address]-67 108 (90 Base) MC G/ACT Inhalation every 4 hrs as needed for increased SOB February 13, 2015 Active 2 pu ffs as needed Symbicort [facility] [address]-06 160-4.5 MCG/ACT Inhalation Twice a day May 07, 2016 Active 2 puffs Sulfasalazine [facility] [address]-06 500 mg Orally 2 in the morning and 2 at night Active 1 tablet Social History Social History Element Qualifiers Date Reported Flu Vaccine: . 2013January 02, 2016 Last Colonoscopy: . 2007January 02, 2016 Ethnicity . Status , Is israeli your prim terrell language? Yes January 02, 2016 Last Bone Density: . 2010January 02, 2016 children . 2 January 02, 2016 Tobacco Use: . Are you a: former smoker 10/14/12 Rodney 2015 Use of recreational / street drugs? . Answer: No January 02, 2016 Marital Status: . January 02, 2016 Do you drink alcohol? . Status: Yes, Type: MARGARITAS, How often? Socially January 02, 2016 Occupation: employed. [employer] January 02, 2016 Family history Qualifier Description Comment Date Reported Maternal Grandmother Comment not available January [...] 02, 2016 Other: Comment not available January 01 016 Vital Signs Date/Time: January 02, 2016 Weight 198 lbs Height 61 in Temperature 97.7 F Cardiac Monitoring Heart Rate 78 /min Blood Pressure Diastolic 88 mm Hg Blood Pressure Systolic 120 mm Hg Summary Purpose eClinicalWorks Submission
--- OUTSIDE RECORDS SUMMARY | 2019-12-08 09:45 | XMS REPORT ---
Author Author Sujey Lopez Organization eClinicalWorks Address Unknown Phone Unavailable Care Team Providers Care Nut Picker Name Role Phone Leydi Lopez CP Unavailable Allergies, Adverse Reactions, Alerts Substance Reaction Event Type N.K.D.A. Info Not Available Non Drug Allergy Encounters Encounter Location Date ECHO RESULTS [facility] May 14, 2015 Unknown [facility] Jun 11, 2015 allergies [facility] Jun 27, 2015 sinus infection [facility] Aug 07, 2015 Headaches [facility] Mar 07, 2015 ARTERIAL/ [facility] Apr 24, 2015 Needs call back from Medical Staff [facility] May 07, 2015 Unknown [facility] October 19, 2015 Arm hurting [facility] October 04, 2015 Sore throat [facility] October 16, 2015 echo & carotid dopplers Prabhu Singh MD, [place] May 31, 2015 Follow-Up Prabhu Singh MD, [place] October 11, 2015 WWE [facility] November 09, 2015 Follow-Up Prabhu Singh [place], [place] May 24, 2015 Problems Problem Type Condition ICD-9 Code Onset Dates Condition Statu s Problem History of [place] (myocardial infarction) I25.2 Active Problem Non morbid obesity due to excess calories E66.09 Active Problem Constipation, unspecified constipation type K59.00 Active Problem Allergic rhinitis J30.9 Active Problem Chronic obstructive pulmonary disease, unspecified MENTAL HEALTH ASSISTANT D type 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.9 Active Problem Osteopenia of spine M85.88 Active Problem Hyperlipidemia, unspecified hyperlipidemia E78.5 Active Problem Rheumatoid arthritis M06.9 Active Problem Coronary artery disease invo lving [place] coronary artery of [place] heart, angina presence unspecified I25.10 Activ e Problem GUCCI (obstructive sleep apnea) G47.33 Active Assessment Osteopenia of spine M85.88 Active Assessment Screening for osteoporosis Z13.820 A ctive Assessment Chronic obstructive pulmonary disease, unspecified MENTAL HEALTH ASSISTANT D type J44.9 Active Assessment Screening for colon cancer Z12.11 A ctive Assessment Routine adult health maintenance Z00.00 Active Assessment Screening for breast cancer Z12.39 Active Problem Hypertensive heart disease without heart failure I11.9 Active Medications Medication Code System Code Instructions Start Date End Date Status Dosage Symbicort [facility] [address]-46 160-4.5 MCG/ACT Inhalation Twice a day May 07, 2016 Active 2 puffs Fluticasone Propionate [facility] [address]-71 50 MCG/ACT Nasall y Once a day Aug 07, 2015 Active 1 spray in each nost ril Simvastatin [facility] [address]-64 40 MG Orally Once a day Active 1 tablet in the evening Clopidogrel Bisulfate [facility] [address]-19 75 MG Orally Once a day Active 1 tablet Imitrex [facility] [address]-99 100 mg Orally at onset headache may repeat in 2 hrs max 2 a day Aug 21, 2015 Active 1 tablet Sulfasalazine [facility] [address]-14 500 mg Orally 2 in the morning and 2 at night Active 1 tablet Carvedilol [facility] [address]-10 3.125 MG Orally Twice a day Active 1 tablet with food Aspir-Low [facility] [address]-84 81 MG Orally Once a day Active 1 tablet ProAir HFA [facility] [address]-22 108 (90 Base) MC G/ACT Inhalation every 4 hrs as needed for increased SOB February 13, 2015 Active 2 pu ffs as needed Nucynta [facility] [address]-65 75 MG Orally every 6 hrs Active 1 tablet Social History Social History Element Qualifiers Date Reported Flu Vaccine: . 2013November 09, 2015 Last Colonoscopy: . 2007November 09, 2015 Ethnicity . Status , Is northern irish your prim terrell language? Yes November 09, 2015 Last Bone Density: . 2010November 09, 2015 children . 2 November 09, 2015 Tobacco Use: . Are you a: former smoker 10/14/12 Apr 2015 Use of recreational / street drugs? . Answer: No 2015 Marital Status: . November 09, 2015 Do you drink alcohol? . Status: Yes, Type: MARGARITAS, How often? Socially November 09, 2015 Occupation: employed. [employer] November 09, 2015 Vital Signs Date/Time: November 09, 2015 Weight 198 lbs Height 61 in Cardiac Monitoring Heart Rate 88 /min Blood Pressure Diastolic 74 mm Hg Blood Pressure Systolic 132 mm Hg Results BONE DENSITY Summary Purpose eClinicalWorks Submission
--- OUTSIDE RECORDS SUMMARY | 2019-12-08 09:45 | XMS REPORT ---
Author Author Sujey Singh Organization eClinicalWorks Address Unknown Phone Unavailable Care Team Providers Care Chaplaincy Name Role Phone Prabhu Singh CP Unavailable Allergies, Adverse Reactions, Alerts Substance Reaction Event Type N.K.D.A. Info Not Available Non Drug Allergy Problems Problem Type Condition Code Onset Dates Condition Statu s Problem Old myocardial infarction 412 Ac tive Assessment Body mass index (BMI) 36.0-36.9, adult Z68.36 Active Problem Coronary atherosclerosis of [place] coronary artery 414 .01 Active Assessment Obesity, unspecified E66.9 Active Problem Obesity, unspecified E66.9 Active Problem Mixed hyperlipidemia E78.2 Active Problem Abnormal electrocardiogram [ECG] [EKG] R94.31 Active Problem Atherosclerotic heart diseas e of [place] coronary artery with unspecified angina pectoris I25.119 Active Problem Chest pain, unspecified R07.9 Acti ve Assessment Hypertensive heart disease without heart failure I11.9 Active Assessment Mixed hyperlipidemia E78.2 Active Problem Body mass index (BMI) 36.0-36.9, adult Z68.36 Active Assessment Abnormal electrocardiogram [ECG] [EKG] R94.31 Active Problem Coronary angioplasty status Z98.61 Active Problem Hypertensive heart disease without heart failure I11.9 Active Problem Atherosclerotic heart diseas e of [place] coronary artery without angina pectoris I25.10 Active Problem Old myocardial infarction I25.2 Ac tive Assessment Atherosclerotic heart diseas e of [place] coronary artery with unspecified angina pectoris I25.119 Active Problem Obesity, unspecified 278.00 Active Assessment Coronary angioplasty status Z98.61 Active Assessment Old myocardial infarction I25.2 Ac tive Problem Benign hypertensive heart disease without heart failur e 402.10 Active Problem Postprocedural PCI status V45.82 Ac tive Problem Abnormal ECG 794.31 Active Problem Mixed hyperlipidemia 272.2 Active Medications Medication Code System Code Instructions Start Date End Date Status Dosage Symbicort [facility] [address]-09 160-4.5 MCG/ACT Inhalation Twice a day Active 2 puffs Spiriva Respimat [facility] [address]-46 2.5 MCG/ACT Inhalation Once a day Active 2 puffs Plavix [facility] [address]-40 75 MG Orally Once a day Ac tive 1 tablet Aspirin [facility] [address]337 81 MG Orally Once a day Acti ve 1 tablet ProAir HFA [facility] [address]-34 108 (90 Base) MCG/ACT Inhalation ev taco 4 hrs Active 2 puffs as needed Ranitidine HCl [facility] [address]-01 150 MG Orally Once a day Active 1 capsule at bedtime Carvedilol [facility] [address]-74 3.125 MG Orally twice a day (bid) Active 1 tablet Simvastatin [facility] [address]-89 40 MG Orally Once a day Active 1 tablet Sulfasalazine [facility] [address]-86 500 mg Orally every 6 hrs Active 1 tablet Nucynta [facility] [address]-22 75 MG Orally every 6 hrs A ctive 1 tablet Vital Signs Date/Time: Apr 14, 2017 BMI 37.41 Index Weight 198 lbs Height 5ft 1 in in Cardiac Monitoring Heart Rate 90 /min Blood Pressure Diastolic 80 mm Hg Blood Pressure Systolic 119 mm Hg Results No Known Results Summary Purpose eClinicalWorks Submission
--- OUTSIDE RECORDS SUMMARY | 2019-12-08 09:45 | XMS REPORT ---
Author Author Sujey Valenzuela [facility] eClinicalWorks Address Unknown Phone Unavailable Care Team Providers Care Security Messenger Name Role Phone Camryn Valenzuela Unavailable Allergies, Adverse Reactions, Alerts Substance Reaction Event Type N.K.D.A. Info Not Available Non Drug Allergy Encounters Encounter Location Date ECHO RESULTS [facility] May 14, 2015 Unknown [facility] Jun 11, 2015 allergies [facility] Jun 27, 2015 sinus infection [facility] Aug 07, 2015 Headaches [facility] Mar 07, 2015 ARTERIAL/ [facility] Apr 24, 2015 Needs call back from Medical Staff [facility] May 07, 2015 Unknown [facility] October 19, 2015 Arm hurting [facility] October 04, 2015 Sore throat [facility] October 16, 2015 Follow-Up Prabhu Singh MD, [place] May 24, 2015 echo & carotid dopplers Prabhu Singh MD, [place] May 31, 2015 Unknown [facility] Apr 10, 2016 Abdominal pain [facility] Apr 10, 2016 Stomach issues [facility] January 02, 2016 Allergies [facility] Mar 04, 2016 WWE [facility] November 09, 2015 test results and feet hurting [facility] November 19, 2015 Follow-Up Prabhu Singh MD, [place] October 11, 2015 Problems Problem Type Condition ICD-9 Code Onset Dates Condition Statu s Problem Non morbid obesity due to excess calories E66.09 Active Problem Hyperlipidemia, unspecified hyperlipidemia E78.5 Active Problem Rheumatoid arthritis M06.9 Active Problem Thrombocytopenia D69.6 Active Problem Osteopenia of spine M85.88 Active Problem Leukopenia, unspecified type D72.819 Active Problem Coronary artery disease invo lving [place] coronary artery of [place] heart, angina presence unspecified I25.10 Activ e Problem GUCCI (obstructive sleep apnea) G47.33 Active Problem Allergic rhinitis J30.9 Active Problem Chronic obstructive pulmonary disease, unspecified CUSTOMER LIAISON D type J44.9 Active Assessment Urinary tract infection N39.0 Acti ve Assessment Heart burn R12 Active Assessment Abdominal pain R10.9 Active Problem Hypertensive heart disease without heart failure I11.9 Active Assessment Dizziness R42 Active Problem History of [place] (myocardial infarction) I25.2 Active Assessment History of [place] (myocardial infarction) I25.2 Active Problem Constipation, unspecified constipation type K59.00 Active Medications Medication Code System Code Instructions Start Date End Date Status Dosage Clopidogrel Bisulfate [facility] [address]-91 75 MG Orally Once a day Active 1 tablet Fluticasone Propionate [facility] [address]-09 50 MCG/ACT Nasall y Once a day Aug 07, 2015 Active 1 spray in each nost ril Cipro [facility] [address]-84 250 MG Orally every 12 hrs Mar 272015Apr 15, 2016 Active 1 tablet ProAir HFA [facility] [address]-09 108 (90 Base) MC G/ACT Inhalation every 4 hrs as needed for increased SOB February 13, 2015 Active 2 pu ffs as needed Sulfasalazine [facility] [address]-38 500 mg Orally 2 in the morning and 2 at night Active 1 tablet Aspir-Low [facility] [address]-63 81 MG Orally Once a day Active 1 tablet Symbicort [facility] [address]-54 160-4.5 MCG/ACT Inhalation Twice a day May 07, 2016 Active 2 puffs Nucynta [facility] [address]-72 75 MG Orally every 6 hrs Active 1 tablet Carvedilol [facility] [address]-73 3.125 MG Orally Twice a day Active 1 tablet with food Ranitidine HCl [facility] [address]-63 150 MG Orally Once a day Mar 272015 Active 1 capsule at bedtime Simvastatin [facility] [address]-59 40 MG Orally Once a day Active 1 tablet in the evening Social History Social History Element Qualifiers Date Reported Flu Vaccine: . 2013Apr 10, 2016 Last Colonoscopy: . 2007Apr 10, 2016 Ethnicity . Status , Is [place] islander your prim terrell language? Yes Apr 10, 2016 Last Bone Density: . 2010Apr 10, 2016 children . 2 Apr 10, 2016 Tobacco Use: . Are you a: former smoker 10/14/12 Sep 2015 Use of recreational / street drugs? . Answer: No Apr 10, 2016 Marital Status: . Apr 10, 2016 Do you drink alcohol? . Status: Yes, Type: MARGARITAS, How often? Socially Apr 10, 2016 Occupation: employed. [employer] Apr 10, 2016 Vital Signs Date/Time: Apr 10, 2016 Weight 198 lbs Height 61 in Cardiac Monitoring Heart Rate 76 /min Blood Pressure Diastolic 85 mm Hg Blood Pressure Systolic 130 mm Hg Summary Purpose eClinicalWorks Submission
--- OUTSIDE RECORDS SUMMARY | 2019-12-08 09:45 | XMS REPORT ---
Author Author Sujey Lopez Organization eClinicalWorks Address Unknown Phone Unavailable Care Team Providers Care Edge Burnisher Uppers Name Role Phone Leydi Lopez CP Unavailable Allergies, Adverse Reactions, Alerts Substance Reaction Event Type N.K.D.A. Info Not Available Non Drug Allergy Problems Problem Type Condition Code Onset Dates Condition Statu s Problem Hyperlipidemia, unspecified hyperlipidemia E78.5 Active Problem Coronary artery disease invo lving [place] coronary artery of [place] heart, angina presence unspecified I25.10 Activ e Problem GUCCI (obstructive sleep apnea) G47.33 Active Problem Ulcerative colitis with complication, unspecified loca tion K51.919 Active Problem Seasonal allergic rhinitis, unspecified allergic rhinitis trigger J30.2 Active Problem BMI 37.0-37.9, adult Z68.37 Active Problem Osteopenia of spine M85.88 Active Problem Chronic obstructive pulmonary disease, unspecified TIG WELDER D type J44.9 Active Problem Polyp of colon, unspecified part of colon, unspecified type K63.5 Active Problem Gastroesophageal reflux disease, esophag itis presence not specified K21.9 Active Assessment Rheumatoid arthritis M06.9 Active Assessment Hypertensive heart disease without heart failure I11.9 Active Assessment BMI 37.0-37.9, adult Z68.[address] of [place] (myocardial infarction) I25.2 Active Problem Constipation, unspecified constipation type K59.00 Active Assessment Acute bilateral low back pain without sciatica M54.5 Active Problem Non morbid obesity due to excess calories E66.09 Active Problem Hypertensive heart disease without heart failure I11.9 Active Problem Rheumatoid arthritis M06.9 Active Medications Medication Code System Code Instructions Start Date End Date Status Dosage Carvedilol [facility] [address]-10 3.125 MG Orally once a day December 25 13 Active 1 tablet with food Nucynta [facility] [address]-09 75 MG Orally prn Aug 27, 2015 Acti ve 1 tablet Vitamin D [facility] [address]-00 6000 twice a day (bid) Active 1 capsule Esomeprazole Magnesium [facility] [address]-03 40 MG Orally daily Active 1 tablet Symbicort [facility] 14641835257 160-4.5 MCG/ACT Inhalation Twice a day Active 2 puffs Spiriva Respimat [facility] 7376-6680-29 2.5 mcg inhalation QD JanuaryOctober 08, 2017 Active 2 inhalations Fluticasone Propionate [facility] [address]-81 50 MCG/ACT Nasall y Once a day Aug 07, 2015 Active 1 spray in each nost ril Levocetirizine Dihydrochloride [facility] 95083881210 5 MG Orally Once a day Active 1 tablet in the evening Multivitamin [facility] 15563-20809 Active not def ined Sulfasalazine [facility] [address]-19 500 mg Orally Activ e 3 tablet Plavix [facility] [address]-57 75 MG Orally Once a day Ac tive 1 tablet Montelukast Sodium [facility] [address]-73 10 MG Orally Once a day Mar Active 1 tablet in the evening Simvastatin [facility] [address]-53 40 MG Orally Once a day December 25, 2012 Active 1 tablet in the evening Albuterol Sulfate HFA [facility] [address]-59 108 (90 Ba se) MCG/ACT Inhalation every 4-6 hrs PRN Jul 07, 2016 Active 2 puffs as neede d Aspir-Low [facility] [address]-10 81 MG Orally Once a day December 25, 2012 Active 1 tablet Cyclobenzaprine HCl [facility] [address]-96 7.5 MG Orally Active 1 tablet as needed Ranitidine HCl [facility] [address]-43 150 MG Orally QD-BID PRN Mar 272015 Active 1 capsule Clopidogrel Bisulfate [facility] [address]-24 75 MG Orally Once a day December 25, 2012 Active 1 tablet Gabapentin [facility] [address]-88 600 MG Orally as needed (prn) September 24, 2016 Active 1 tablet Tizanidine HCl [facility] [address]-78 4 MG Orally Active 1 capsule as needed Vital Signs Date/Time: Apr 15, 2017 BMI 37.22 Index Weight 197 lbs Height 61 in Cardiac Monitoring Heart Rate 74 /min Blood Pressure Diastolic 80 mm Hg Blood Pressure Systolic 112 mm Hg Results Name Result Date Reference Range Unit Abnormali ty Flag TORADOL IM 15MG X4 Summary Purpose eClinicalWorks Submission
--- OUTSIDE RECORDS SUMMARY | 2019-12-08 09:45 | XMS REPORT ---
Author Author Sujey Porter Organization eClinicalWorks Address Unknown Phone Unavailable Care Team Providers Care Florist Designer Name Role Phone Loli Porter Unavailable Encounters Encounter Location Date ECHO RESULTS [facility] May 14, 2015 Unknown [facility] Jun 11, 2015 allergies [facility] Jun 27, 2015 sinus infection [facility] Aug 07, 2015 Headaches [facility] Mar 07, 2015 ARTERIAL/ [facility] Apr 24, 2015 Needs call back from Medical Staff [facility] May 07, 2015 Unknown [facility] October 19, 2015 Arm hurting [facility] October 04, 2015 Sore throat [facility] October 16, 2015 Follow-Up Prabhu [facility] [place], [place] October 11, 2015 Follow-Up Prabhu Singh [facility], [place] May 24, 2015 echo & carotid dopplers Prabhu Singh MD, [place] May 31, 2015 Problems Problem Type Condition ICD-9 Code Onset Dates Condition Statu s Problem Hypertensive heart disease without heart failure I11.9 Active Problem Constipation, unspecified constipation type K59.00 Active Problem History of [place] (myocardial infarction) I25.2 Active Problem Chronic obstructive pulmonary disease, unspecified 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 SETTER D type J44.9 Active Problem Coronary artery disease invo lving [place] coronary artery of [place] heart, angina presence unspecified I25.10 Activ e Problem Allergic rhinitis J30.9 Active Problem Rheumatoid arthritis M06.9 Active Problem Non morbid obesity due to excess calories E66.09 Active Problem GUCCI (obstructive sleep apnea) G47.33 Active Problem Hyperlipidemia, unspecified hyperlipidemia E78.5 Active Medications Medication Code System Code Instructions Start Date End Date Status Dosage Nystatin MEDISPAN [address]-34 [id number] UNIT/ML M outh/Throat Three times a day until symptoms resolve October 19, 2015 October 29, 2015 Active 5ml gargl e and spit Social History Social History Element Qualifiers Date Reported Flu Vaccine: . 2013October 16, 2015 Last Colonoscopy: . 2007October 16, 2015 Ethnicity . Status , Is bulgarian your prim terrell language? Yes October 16, 2015 Last Bone Density: . 2010October 16, 2015 children . 2 October 16, 2015 Tobacco Use: . Are you a: former smoker 10/14/12Sep Use of recreational / street drugs? . Answer: No Juan Carlos 2015 Marital Status: . October 16, 2015 Do you drink alcohol? . Status: Yes, Type: MARGARITAS, How often? Socially October 16, 2015 Occupation: employed. [employer] October 16, 2015 Summary Purpose eClinicalWorks Submission
--- OUTSIDE RECORDS SUMMARY | 2019-12-08 09:45 | XMS REPORT ---
Author Author Sujey Lopez [facility] eClinicalWorks Address Unknown Phone Unavailable Care Team Providers Care Mobile Ui Developer Name Role Phone Leydi Lopez CP Unavailable Allergies, Adverse Reactions, Alerts Substance Reaction Event Type N.K.D.A. Info Not Available Non Drug Allergy Encounters Encounter Location Date ECHO RESULTS [facility] May 14, 2015 Unknown [facility] Jun 11, 2015 allergies [facility] Jun 27, 2015 sinus infection [facility] Aug 07, 2015 Headaches [facility] Mar 07, 2015 echo & carotid dopplers Prabhu Singh MD, [place] May 31, 2015 ARTERIAL/ [facility] Apr 24, 2015 Follow-Up Prabhu Singh MD, PA October 11, 2015 Needs call back from Medical Staff [facility] May 07, 2015 Follow-Up Prabhu Singh MD, [place] May 24, 2015 Arm hurting [facility] October 04, 2015 Sore throat [facility] October 16, 2015 Problems Problem Type Condition ICD-9 Code Onset Dates Condition Statu s Assessment Sorethroat J02.9 Active Problem Constipation, unspecified constipation type K59.00 Active Problem History of [place] (myocardial infarction) I25.2 Active Problem Chronic obstructive pulmonary disease, unspecified 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 J44.9 Active Problem Coronary artery disease invo lving [place] coronary artery of [place] heart, angina presence unspecified I25.10 Activ e Problem Allergic rhinitis J30.9 Active Problem Rheumatoid arthritis M06.9 Active Problem Non morbid obesity due to excess calories E66.09 Active Problem GUCCI (obstructive sleep apnea) G47.33 Active Problem Hyperlipidemia, unspecified hyperlipidemia E78.5 Active Medications Medication Code System Code Instructions Start Date End Date Status Dosage Simvastatin MEDISPAN [address]-58 40 MG Orally Once a day Active 1 tablet in the evening Symbicort MEDISPAN [address]-59 160-4.5 MCG/ACT Inhalation Twice a d ay Active 2 puffs Aspir-Low [facility] [address]-14 81 MG Orally Once a day Active 1 tablet Imitrex [facility] [address]-65 100 mg Orally at onset headache may repeat in 2 hrs max 2 a day Aug 21, 2015 Active 1 tablet Carvedilol [facility] [address]-47 3.125 MG Orally Twice a day Active 1 tablet with food ProAir HFA [facility] [address]-81 108 (90 Base) MC G/ACT Inhalation every 4 hrs as needed for increased SOB February 13, 2015 Active 2 pu ffs as needed Clopidogrel Bisulfate [facility] [address]-32 75 MG Orally Once a day Active 1 tablet Sulfasalazine [facility] [address]-01 500 mg Orally 2 in the morning and 2 at night Active 1 tablet Nucynta [facility] [address]-24 75 MG Orally every 6 hrs Active 1 tablet Fluticasone Propionate [facility] [address]-16 50 MCG/ACT Nasall y Once a day Aug 07, 2015 Active 1 spray in each nost ril magic mouthwash [facility] [address] 1:1:1 PO Q6 PRN October 16, 2015 October 23, 2015 Active 1 tsp (gargle and spit) Omnicef Unknown 0 300 MG Orally every 12 hrs October 15 6 October 21, 2015 Active 1 capsule Social History Social History Element Qualifiers Date Reported Flu Vaccine: . 2013October 16, 2015 Last Colonoscopy: . 2007October 16, 2015 Ethnicity . Status , Is indonesian your prim terrell language? Yes October 16, [...] often? Socially October 16, 2015 Occupation: employed. [employer] October 16, 2015 Vital Signs Date/Time: October 16, 2015 Weight 198 lbs Height 61 in Cardiac Monitoring Heart Rate 80 /min Blood Pressure Diastolic 80 mm Hg Blood Pressure Systolic 138 mm Hg Summary Purpose eClinicalWorks Submission
--- OUTSIDE RECORDS SUMMARY | 2019-12-08 09:45 | XMS REPORT ---
Author Author Sujey Kathleen Organization eClinicalWorks Address Unknown Phone Unavailable Care Team Providers Care Engineer Internship Name Role Phone Dmitri Kathleen CP Unavailable Allergies, Adverse Reactions, Alerts Substance Reaction Event Type N.K.D.A. Info Not Available Non Drug Allergy Problems Problem Type Condition Code Onset Dates Condition Statu s Assessment Coronary artery disease invo lving [place] coronary artery of [place] heart, angina presence unspecified I25.10 Activ e Assessment Rheumatoid arthritis M06.9 Active Problem Non morbid obesity due to excess calories E66.09 Active Assessment COPD exacerbation J44.1 Active Problem Rheumatoid arthritis M06.9 Active Assessment Wears dentures Z97.2 Active Problem GUCCI (obstructive sleep apnea) G47.33 Active Problem Gastroesophageal reflux disease, esophag itis presence not specified K21.9 Active Problem Osteopenia of spine M85.88 Active Problem Wears dentures Z97.2 Active Problem Body mass index (BMI) of 40.1 to 44.9 in adult Z68.41 Active Assessment History of [place] (myocardial infarction) I25.2 Active Assessment Hypertensive heart disease without heart failure I11.9 Active Problem COPD exacerbation J44.1 Active Assessment Thrush, oral B37.0 Active Problem Seasonal allergic rhinitis, unspecified allergic rhinitis trigger J30.2 Active Problem Polyp of colon, unspecified part of colon, unspecified type K63.5 Active Problem BMI 37.0-37.9, adult Z68.37 Active Problem Ulcerative colitis with complication, unspecified loca tion K51.919 Active Problem Hypertensive heart disease without heart failure I11.9 Active Problem History of [place] (myocardial infarction) I25.2 Active Assessment Chronic obstructive pulmonary disease, unspecified 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 Active Problem Hyperlipidemia, unspecified hyperlipidemia E78.5 Active Problem Chronic obstructive pulmonary disease, unspecified 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 Active Problem Coronary artery disease invo lving [place] coronary artery of [place] heart, angina presence unspecified I25.10 Activ e Problem Constipation, unspecified constipation type K59.00 Active Medications Medication Code System Code Instructions Start Date End Date Status Dosage Multivitamin [facility] [address] Active not def ined Spiriva Respimat [facility] 04163684266 2.5 MCG/ACT Activ e INHALE TWO INHALATIONS BY MOUTH DAILY Sulfasalazine [facility] 52900783562 500 mg Orally Active [address] [facility] 40789378453 3.125 MG Orally once a day December 25, 2012 Active 1 tablet with food Tizanidine HCl [facility] 49313191312 4 MG Orally Active 1 capsule as needed Ceftin NDC 0 250 MG Orally every 12 hrs Jul 06, 2018 Jul 16, 2018 Active [address] [facility] 26347876260 75 MG Orally prn Aug 27, 2015 Active 1 tablet Aspir-Low [facility] 39611111901 81 MG Orally Once a day December 25, 2012 Active 1 tablet Ranitidine HCl [facility] 98396481079 150 MG Orally QD-BID PRN Apr 10 6 Active [address] [facility] 17723479594 600 MG Orally as needed (prn) September Active 1 tablet Albuterol Sulfate HFA [facility] [address]-57 108 (90 Ba se) MCG/ACT Inhalation every 4-6 hrs PRN Jul 07, 2016 Active 2 puffs as neede d Vitamin D [facility] [address]-79 6000 twice a day (bid) Active [address] [facility] 86994815611 40 MG Active TAKE 1 T ABLET BY MOUTH EVERY EVENING Clopidogrel Bisulfate [facility] 62198817087 75 MG Orally Once a day 2012 Active 1 tablet Ventolin HFA [facility] 86599823060 108 (90 Base) MCG/ACT Inhala tion every 6 hrs Jul 09, 2018 Active 2 puffs as needed Levocetirizine Dihydrochloride [facility] 99695169827 5 MG Orally Once a day Active 1 tablet in the evening Symbicort [facility] 95897241536 160-4.5 MCG/ACT Inhalation Twice a day Active 2 puffs Mycelex NDC 0 10 mg Mouth/Throat Five times a day Jul 06, 2018 Jul 20, 2018 Active [address] jerome Monteluk[address] Sodium [facility] 26810297685 10 mg Orally Once a day Mar 31, 2017 Active 1 tablet in the evening Esomeprazole Magnesium [facility] 51190729675 40 MG Activ e TAKE ONE CAPSULE BY MOUTH DAILY Cyclobenzaprine HCl [facility] 57755082840 7.5 MG Orally A ctive 1 tablet as needed Plavix [facility] 11768163826 75 MG Orally Once a day Acti ve 1 tablet Proventil HFA [facility] 40899564927 108 (90 Base) MCG/ACT Inhal ation every 6 hrs Jul 06, 2018 Inactive 2 puffs as needed Fluticasone Propionate [facility] 87562741265 50 MCG/ACT Nasally Once a day Aug 07, 2015 Active 1 spray in each nost ril Vital Signs Date/Time: Jul 06, 2018 BMI 41.11 Index Weight 217.6 lbs Height 61 in Cardiac Monitoring Heart Rate 110 /min Blood Pressure Diastolic 62 mm Hg Blood Pressure Systolic 112 mm Hg Results No Known Results Summary Purpose eClinicalWorks Submission
--- OUTSIDE RECORDS SUMMARY | 2019-12-08 09:45 | XMS REPORT ---
Author Author Sujey Porter [facility] eClinicalWorks Address Unknown Phone Unavailable Care Team Providers Care Picker / Packer Name Role Phone Loli Porter Unavailable Encounters Encounter Location Date Unknown [facility] October 19, 2015 Stomach problems [facility] Apr 30, 2016 Unknown [facility] Jun 10, 2016 Unknown [facility] Apr 10, 2016 Abdominal pain [facility] Apr 10, 2016 Stomach issues [facility] January 02, 2016 Allergies [facility] Mar 04, 2016 WWE [facility] November 09, 2015 test results and feet hurting [facility] November 19, 2015 Unknown [facility] Jun 12, 2016 ECHO RESULTS [facility] May 14, 2015 Unknown [facility] Jun 11, 2015 allergies [facility] Jun 27, 2015 sinus infection [facility] Aug 07, 2015 Headaches [facility] Mar 07, 2015 ARTERIAL/ [facility] Apr 24, 2015 Needs call back from Medical Staff [facility] May 07, 2015 echo & carotid dopplers Prabhu Singh MD, [place] May 31, 2015 Follow-Up Prabhu Singh MD, [place] May 24, 2015 Arm hurting [facility] October 04, 2015 Sore throat [facility] October 16, 2015 Follow-Up Prabhu Singh MD, [place] October 11, 2015 Follow-Up Prabhu Singh MD, [facility] Apr 17, 2016 Office stress test Prabhu Singh MD, [facility] Apr 25, 2016 arterial doppler Prabhu Singh MD, [facility] Apr 25, 2016 Problems Problem Type Condition ICD-9 Code Onset Dates Condition Statu s Problem Rheumatoid arthritis M06.9 Active Problem GUCCI (obstructive sleep apnea) G47.33 Active Problem Hyperlipidemia, unspecified hyperlipidemia E78.5 Active Problem Leukopenia, unspecified type D72.819 Active Problem Thrombocytopenia D69.6 Active Problem Gastroesophageal reflux disease, esophag itis presence not specified K21.9 Active Problem Chronic obstructive pulmonary disease, unspecified 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 coronary artery of [place] heart, angina presence unspecified I25.10 Activ e Problem Osteopenia of spine M85.88 Active Problem Allergic rhinitis J30.9 Active Problem Hypertensive heart disease without heart failure I11.9 Active Problem History of [place] (myocardial infarction) I25.2 Active Problem Constipation, unspecified constipation type K59.00 Active Problem Non morbid obesity due to excess calories E66.09 Active Social History Social History Element Qualifiers Date Reported Flu Vaccine: . 2013Apr 30, 2016 Last Colonoscopy: . 2007Apr 30, 2016 Ethnicity . Status , Is croatian your prim terrell language? Yes Apr 30, 2016 Last Bone Density: . 2010Apr 30, 2016 children . 2 Apr 30, 2016 Tobacco Use: . Are you a: former smoker 10/14/12 Apr 30, 2016 Use of recreational / street drugs? . Answer: No Apr 30, 2016 Marital Status: . Apr 30, 2016 Do you drink alcohol? . Status: Yes, Type: MARGARITAS, How often? Socially Apr 30, 2016 Occupation: employed. [employer] Apr 30, 2016 Summary Purpose eClinicalWorks Submission
--- OUTSIDE RECORDS SUMMARY | 2019-12-08 09:45 | XMS REPORT ---
Author Author Sujey Valenzuela [facility] eClinicalWorks Address Unknown Phone Unavailable Care Team Providers Care Recreation Director Name Role Phone Camryn Valenzuela Unavailable Allergies, Adverse Reactions, Alerts Substance Reaction Event Type N.K.D.A. Info Not Available Non Drug Allergy Encounters Encounter Location Date ECHO RESULTS [facility] May 14, [address] [facility] Jun 11, [address] [facility] Jun 27, [address] [facility] Aug 07, [address] [facility] Mar 07, 2015 ARTERIAL/ [facility] Apr 24, 2015 Needs call back from Medical Staff [facility] May 07, [address] [facility] October 19, [address] [facility] October 04, [address] [facility] October 16, 2015 Follow-Up Prabhu Singh MD, PA October 11, 2015 Follow-Up Prabhu Singh MD, [facility] May 24, 2015 echo & carotid dopplers Prabhu Singh MD, [place] May 31, [address] [facility] January 02, [address] [facility] Mar 04, [address] [facility] November 09, 2015 test results and feet hurting [facility] November 19, 2015 Problems Problem Type Condition ICD-9 Code Onset Dates Condition Statu s Problem Non morbid obesity due to excess calories E66.09 Active Problem Hyperlipidemia, unspecified hyperlipidemia E78.5 Active Problem Rheumatoid arthritis M06.9 Active Problem Thrombocytopenia D69.6 Active Problem Osteopenia of spine M85.88 Active Problem Leukopenia, unspecified type D72.819 Active Problem Coronary artery disease invo lving [place] coronary artery of [place] heart, angina presence unspecified I25.10 Activ e Problem GUCCI (obstructive sleep apnea) G47.33 Active Problem Allergic rhinitis J30.9 Active Problem Chronic obstructive pulmonary disease, unspecified 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 Assessment Headache R51 Active Assessment Seasonal allergies J30.2 Active Problem Hypertensive heart disease without heart failure I11.9 Active Assessment Chronic obstructive pulmonary disease, unspecified 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 Problem History of [place] (myocardial infarction) I25.2 Active Assessment Hyperlipidemia, unspecified hyperlipidemia E78.5 Active Problem Constipation, unspecified constipation type K59.00 Active Medications Medication Code System Code Instructions Start Date End Date Status Dosage [facility] [address]-76 75 MG Orally every 6 hrs Active 1 tablet Symbicort [facility] [address]-81 160-4.5 MCG/ACT Inhalation Twice a day May 07, 2016 Active 2 puffs Clopidogrel Bisulfate [facility] [address]-60 75 MG Orally Once a day Active 1 tablet Simvastatin [facility] [address]-16 40 MG Orally Once a day Active 1 tablet in the evening ProAir HFA [facility] [address]-35 108 (90 Base) MC G/ACT Inhalation every 4 hrs as needed for increased SOB February 13, 2015 Active 2 pu ffs as needed Sulfasalazine [facility] [address]-16 500 mg Orally 2 in the morning and 2 at night Active 1 tablet Aspir-Low [facility] [address]-36 81 MG Orally Once a day Active 1 tablet Imitrex [facility] [address]-63 100 mg Orally at onset headache may repeat in 2 hrs max 2 a day Aug 21, 2015 Active 1 tablet Fluticasone Propionate [facility] [address]-25 50 MCG/ACT Nasall y Once a day Aug 07, 2015 Active 1 spray in each nost ril Carvedilol [facility] [address]-23 3.125 MG Orally Twice a day Active 1 tablet with food Social History Social History Element Qualifiers Date Reported Flu Vaccine: . 2013Mar 04, 2016 Last Colonoscopy: . 2007Mar 04, 2016 Ethnicity . Status , Is lao your prim terrell language? Yes Mar 04, 2016 Last Bone Density: . 2010Mar 04, 2016 children . 2 Mar 04, 2016 Tobacco Use: . Are you a: former smoker 10/14/12 Mar 04, 2016 Use of recreational / street drugs? . Answer: No Mar 04, 2016 Marital Status: . Mar 04, 2016 Do you drink alcohol? . Status: Yes, Type: MARGARITAS, How often? Socially Mar 04, 2016 Occupation: employed. [employer] Mar 04, 2016 Family history Qualifier Description Comment Date Reported Maternal Grandmother Comment not available Feb Paternal Grandmother Comment not available Feb Siblings uterine cancer Mar 04, 2016 Maternal Grandfather Comment not available Feb Children alive son-gout Mar 04, 2016 Father cardiomegaly Mar 04, 2016 Paternal Grandfather Comment not available Feb Mother lung cancer, bone cancer, brain cancer Mar 04, 2016 Other: Comment not available Mar 04 16 Vital Signs Date/Time: Mar 04, 2016 Weight 199 lbs Height 61 in Cardiac Monitoring Heart Rate 94 /min Blood Pressure Diastolic 84 mm Hg Blood Pressure Systolic 118 mm Hg Results [place] 1MGx4 Summary Purpose eClinicalWorks Submission
--- OUTSIDE RECORDS SUMMARY | 2019-12-08 09:45 | XMS REPORT ---
Author Author Sujey Kathleen Organization eClinicalWorks Address Unknown Phone Unavailable Care Team Providers Care Material Handling Warehouse Supervisor Name Role Phone Dmitri Kathleen CP Unavailable Allergies No Known Allergies Problems Problem Type Condition Code Onset Dates Condition Statu s Problem GUCCI (obstructive sleep apnea) G47.33 Active Problem Gastroesophageal reflux disease, esophag itis presence not specified K21.9 Active Problem Osteopenia of spine M85.88 Active Problem Wears dentures Z97.2 Active Problem Body mass index (BMI) of 40.1 to 44.9 in adult Z68.41 Active Problem COPD exacerbation J44.1 Active Problem Seasonal allergic rhinitis, unspecified allergic rhinitis trigger J30.2 Active Problem Polyp of colon, unspecified part of colon, unspecified type K63.5 Active Problem BMI 37.0-37.9, adult Z68.37 Active Problem Ulcerative colitis with complication, unspecified loca tion K51.919 Active Problem Hypertensive heart disease without heart failure I11.9 Active Problem History of [place] (myocardial infarction) I25.2 Active Problem Hyperlipidemia, unspecified hyperlipidemia E78.5 Active Problem Chronic obstructive pulmonary disease, unspecified 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
--- OUTSIDE RECORDS SUMMARY | 2019-12-08 09:45 | XMS REPORT ---
Author Author Sujey Kathleen Organization [employer] Address Unknown Phone Unavailable Care Team Providers Care Epic Application Coordinator Name Role Phone Dmitri Kathleen CP Unavailable Allergies, Adverse Reactions, Alerts Substance Reaction Event Type N.K.D.A. 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 Active Problem BMI 37.0-37.9, adult Z68.37 Active Assessment Body mass index (BMI) of 40.1 to 44.9 in adult Z68.41 Active Problem Ulcerative colitis with complication, unspecified loca tion K51.919 Active Assessment History of [place] (myocardial infarction) I25.2 Active Assessment Non morbid obesity due to excess calories E66.09 Active Problem Body mass index (BMI) of 40.1 to 44.9 in adult Z68.41 Active Problem Gastroesophageal reflux disease, esophag itis presence not specified K21.9 Active Problem Osteopenia of spine M85.88 Active Problem Seasonal allergic rhinitis, unspecified allergic rhinitis trigger J30.2 Active Problem Polyp of colon, unspecified part of colon, unspecified type K63.5 Active Assessment Chronic obstructive pulmonary disease, unspecified HEAD RIGGER D 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 Active Assessment Sinus headache R51 Active Assessment Coronary artery disease invo lving [place] coronary artery of [place] heart, angina presence unspecified I25.10 Activ e Assessment Rheumatoid arthritis M06.9 Active Problem Rheumatoid arthritis M06.9 Active Problem GUCCI (obstructive sleep apnea) G47.33 Active Problem Hypertensive heart disease without heart failure I11.9 Active Problem Coronary artery disease invo lving [place] coronary artery of [place] heart, angina presence unspecified I25.10 Activ e Assessment Hyperlipidemia, unspecified hyperlipidemia E78.5 Active Problem History of [place] (myocardial infarction) I25.2 Active Problem Constipation, unspecified constipation type K59.00 Active Medications Medication Code System Code Instructions Start Date End Date Status Dosage Spiriva Respimat [facility] 92922204958 2.5 MCG/ACT Activ e INHALE TWO INHALATIONS BY MOUTH DAILY Nucynta ND 28544906041 75 MG Orally prn Aug 27, 2015 Active 1 tablet Albuterol Sulfate HFA [facility] [address]-26 108 (90 Ba se) MCG/ACT Inhalation every 4-6 hrs PRN Jul 07, 2016 Active 2 puffs as neede d Ranitidine HCl [facility] 58058049487 150 MG Orally QD-BID PRN Apr 10 6 Active 1 capsule Multivitamin [facility] 23061-06398 Active not def ined Esomeprazole Magnesium ND 69451699037 40 mg Orally daily Active 1 tablet Ceftin ND 75160918596 250 MG Orally Twice a day December 22, 2017 January 01, 2018 Active 1 tablet Montelukast Sodium ND 16281915268 10 mg Orally Once a day Mar 31, 2017 Active 1 tablet in the evening Levocetirizine Dihydrochloride [facility] 25627109240 5 MG Orally Once a day Active 1 tablet in the evening Plavix [facility] 55375857385 75 MG Orally Once a day Acti ve 1 tablet Tizanidine HCl [facility] 88015486968 4 MG Orally Active 1 capsule as needed Vitamin D [facility] [address]-53 6000 twice a day (bid) Active 1 capsule Gabapentin [facility] 14557406031 600 MG Orally as needed (prn) September Active 1 tablet Simvastatin ND 32652351585 40 MG Active TAKE 1 T ABLET BY MOUTH EVERY EVENING Symbicort [facility] 44601100942 160-4.5 MCG/ACT Inhalation Twice a day Active 2 puffs Fluticasone Propionate ND 75578115587 50 MCG/ACT Nasally Once a day Aug 07, 2015 Active 1 spray in each nost ril Sulfasalazine ND 05536698191 500 mg Orally Active 3 tablet Cyclobenzaprine HCl ND 62016649781 7.5 MG Orally A ctive 1 tablet as needed Aspir-Low ND 08770315003 81 MG Orally Once a day December 25, 2012 Active 1 tablet Clopidogrel Bisulfate ND 99257137470 75 MG Orally Once a day Ju 2012 Active 1 tablet Carvedilol [facility] 02068950083 3.125 MG Orally once a day December 25, 2012 Active 1 tablet with food Vital Signs Date/Time: December 22, 2017 BMI 41.00 Index Weight 217 lbs Height 61 in Temperature 98.4 F Cardiac Monitoring Heart Rate 74 /min Blood Pressure Diastolic 84 mm Hg Blood Pressure Systolic 118 mm Hg Results No Known Results Summary Purpose [employer] Submission
--- OUTSIDE RECORDS SUMMARY | 2019-12-08 09:45 | XMS REPORT ---
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 Active Problem Hyperlipidemia, unspecified [...] not specified K21.9 Active Problem History of [place] (myocardial infarction) I25.2 Active Problem Rheumatoid arthritis M06.9 Active Problem GUCCI (obstructive sleep apnea) G47.33 Active Problem Hypertensive heart disease without heart failure I11.9 Active Problem Coronary artery disease invo lving [place] coronary artery of [place] heart, angina presence unspecified I25.10 Activ e Medications Medication Code System Code Instructions Start Date End Date Status Dosage Fluticasone Propionate [facility] 29257492341 50 MCG/ACT Nasally Once a day Aug 07, 2015 Active 1 spray in each nost ril Results No Known Results Summary Purpose [employer] Submission
--- OUTSIDE RECORDS SUMMARY | 2019-12-08 09:45 | XMS REPORT ---
Author Author Sujey Lopez Organization [employer] Address Unknown Phone Unavailable Care Team Providers Care Residential Roofer Helper Name Role Phone Leydi Lopez CP Unavailable Allergies, Adverse Reactions, Alerts Substance Reaction Event Type N.K.D.A. Info Not Available Non Drug Allergy Encounters Encounter Location Date ECHO RESULTS [facility] May 14, 2015 [facility] Jun [facility], 2015 allergies [facility] Jun 27[facility] 2015 sinus infection [facility] Aug 07, 2015 Headaches [facility] Mar 07, 2015 ARTERIAL/ [facility] Apr 24, 2015 Needs call back from Medical Staff [facility] May 07, 2015 echo & carotid dopplers Prabhu [place], [place] May 31, 2015 Arm hurting [facility] October 04, 2015 Follow-Up Prabhu [place], [place] May 24, 2015 Problems Problem Type Condition ICD-9 Code Onset Dates Condition Statu s Assessment Acute pain of left shoulder M25.512 Active Problem Constipation, unspecified constipation type K59.00 Active Problem History of [place] (myocardial infarction) I25.2 Active Problem Chronic obstructive pulmonary disease, unspecified VIDEO GAME DESIGNER D type J44.9 Active Problem Coronary artery disease invo lving [place] coronary artery of [place] heart, angina presence unspecified I25.10 Activ e Problem Allergic rhinitis J30.9 Active Problem Rheumatoid arthritis M06.9 Active Problem Non morbid obesity due to excess calories E66.09 Active Problem GUCCI (obstructive sleep apnea) G47.33 Active Problem Hyperlipidemia, unspecified hyperlipidemia E78.5 Active Assessment Elevated blood pressure (not hypertension) R03.0 Active Assessment Abnormal EKG R94.31 Active Assessment History of [place] (myocardial infarction) I25.2 Active Assessment Coronary artery disease invo lving [place] coronary artery of [place] heart, angina presence unspecified I25.10 Activ e Medications Medication Code System Code Instructions Start Date End Date Status Dosage Sulfasalazine [facility] [address]-02 500 mg Orally 2 in the morning and 2 at night Active 1 tablet Clopidogrel Bisulfate [facility] [address]-62 75 MG Orally Once a day Active 1 tablet ProAir HFA [facility] [address]-95 108 (90 Base) MC G/ACT Inhalation every 4 hrs as needed for increased SOB February 13, 2015 Active 2 pu ffs as needed Carvedilol [facility] [address]-45 3.125 MG Orally Twice a day Active 1 tablet with food Aspir-Low [facility] [address]-23 81 MG Orally Once a day Active 1 tablet Simvastatin [facility] [address]-90 40 MG Orally Once a day Active 1 tablet in the evening Imitrex [facility] [address]-60 100 mg Orally at onset headache may repeat in 2 hrs max 2 a day Aug 21, 2015 Active 1 tablet Fluticasone Propionate [facility] [address]-68 50 MCG/ACT Nasall y Once a day Aug 07, 2015 Active 1 spray in each nost ril Symbicort [facility] [address]-98 160-4.5 MCG/ACT Inhalation Twice a d ay Active 2 puffs Social History Social History Element Qualifiers Date Reported Flu Vaccine: . 2013October 04, 2015 Last Colonoscopy: . 2007October 04, 2015 Ethnicity . Status , Is kazakh your prim terrell language? Yes October 04, 2015 Last Bone Density: . 2010October 04, 2015 children . 2 October 04, 2015 Tobacco Use: . Are you a: former smoker 10/14/12Sep Use of recreational / street drugs? . Answer: No Juan Carlos 2015 Marital Status: . October 04, 2015 Do you drink alcohol? . Status: Yes, Type: MARGARITAS, How often? Socially October 04, 2015 Occupation: employed. [employer] October 04, 2015 Vital Signs Date/Time: October 04, 2015 Weight 201 lbs Height 61 in Cardiac Monitoring Heart Rate 88 /min Blood Pressure Diastolic 80 mm Hg Blood Pressure Systolic 150 mm Hg Results EKG Summary Purpose eClinicalWorks Submission
--- OUTSIDE RECORDS SUMMARY | 2019-12-08 09:45 | XMS REPORT ---
Author Author Sujey Lopez Organization [employer] Address Unknown Phone Unavailable Care Team Providers Care Telecom Assistant Name Role Phone Leydi Lopez CP Unavailable Allergies, Adverse Reactions, Alerts Substance Reaction Event Type N.K.D.A. Info Not Available Non Drug Allergy Encounters Encounter Location Date ECHO RES[facility] May 14, 2015 Unknown [facility] Jun 11, 2015 allergies [facility] Jun 27, 2015 sinus infection [facility] Aug 07, 2015 Headaches [facility] Mar 07, 2015 ARTERIAL/ [facility] Apr 24, 2015 Needs call back from Medical Staff [facility] May 07, 2015 Follow-Up Prabhu Singh [place], [place] May 24, 2015 echo & carotid dopplers Prabhu Singh [place], [place] May 31, 2015 Problems Problem Type Condition ICD-9 Code Onset Dates Condition Statu s Assessment Allergic rhinitis J30.9 Active Problem Constipation, unspecified constipation type K59.00 Active Problem History of [place] (myocardial infarction) I25.2 Active Assessment Acute sinusitis, recurrence not specifie d, unspecified location J01.90 Active Problem Chronic obstructive pulmonary disease, unspecified BIOLOGY LECTURER D type 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.9 Active Problem Coronary artery disease invo lving [place] coronary artery of [place] heart, angina presence unspecified I25.10 Activ e Problem Allergic rhinitis J30.9 Active Problem Rheumatoid arthritis M06.9 Active Problem Non morbid obesity due to excess calories E66.09 Active Problem GUCCI (obstructive sleep apnea) G47.33 Active Problem Hyperlipidemia, unspecified hyperlipidemia E78.5 Active Medications Medication Code System Code Instructions Start Date End Date Status Dosage [facility] [address]-80 75 MG Orally Once a day Active 1 tablet Carvedilol [facility] [address]-40 3.125 MG Orally Twice a day Active 1 tablet with food Fluticasone Propionate [facility] [address]-11 50 MCG/ACT Nasall y Once a day Aug 07, 2015 Active 1 spray in each nost ril Sulfasalazine [facility] [address]-65 500 mg Orally 2 in the morning and 2 at night Active 1 tablet Simvastatin [facility] [address]-94 40 MG Orally Once a day Active 1 tablet in the evening ProAir HFA [facility] [address]-23 108 (90 Base) MC G/ACT Inhalation every 4 hrs as needed for increased SOB February 13, 2015 Active 2 pu ffs as needed Symbicort [facility] [address]-84 160-4.5 MCG/ACT Inhalation Twice a d ay Active 2 puffs Aspir-Low [facility] [address]-19 81 MG Orally Once a day Active 1 tablet Social History Social History Element Qualifiers Date Reported Flu Vaccine: . 2013Aug 21, 2015 Last Colonoscopy: . 2007Aug 21, 2015 Ethnicity . Status , Is burundian your prim terrell language? Yes Aug 21, 2015 Last Bone Density: . 2010Aug 21, 2015 children . 2 Aug 21, 2015 Tobacco Use: . Are you a: former smoker 10/14/12 Aug 21, 2015 Use of recreational / street drugs? . Answer: No Aug 21, 2015 Marital Status: . Aug 21, 2015 Do you drink alcohol? . Status: Yes, Type: MARGARITAS, How often? Socially Aug 21, 2015 Occupation: employed. [employer] Aug 21, 2015 Vital Signs Date/Time: Aug 07, 2015 Weight 196 lbs Height 61 in Cardiac Monitoring Heart Rate 76 /min Blood Pressure Diastolic 80 mm Hg Blood Pressure Systolic 120 mm Hg Summary Purpose eClinicalWorks Submission
--- OUTSIDE RECORDS SUMMARY | 2019-12-08 09:45 | XMS REPORT ---
Author Author Sujey Singh Organization [employer] Address Unknown Phone Unavailable Care Team Providers Care Control Systems Engineer Name Role Phone Prabhu Singh Unavailable Allergies, Adverse Reactions, Alerts Substance Reaction Event Type N.K.D.A. Info Not Available Non Drug Allergy Encounters Encounter Location Date ECHO RESULTS [facility] May 14, 2015 Unknown [facility] Jun 11, 2015 allergies [facility] Jun 27, 2015 sinus infection [facility] Aug 07, 2015 Headaches [facility] Mar 07, 2015 Follow-Up Prabhu [place], [place] October 11, 2015 ARTERIAL/ [facility] Apr 24, 2015 Needs call back from Medical Staff [facility] May 07, 2015 echo & carotid dopplers Prabhu Singh [place], [place] May 31, 2015 Arm hurting [facility] October 04, 2015 Follow-Up Prabhu Singh [place], [place] May 24, 2015 Problems Problem Type Condition ICD-9 Code Onset Dates Condition Statu s Problem Old myocardial infarction 412 Ac tive Problem Obesity, unspecified E66.9 Active Problem Coronary atherosclerosis of tribe coronary artery 414 .01 Active Problem Atherosclerotic heart diseas e of [place] coronary artery without angina pectoris I25.10 Active Assessment Mixed hyperlipidemia E78.2 Active Problem Old myocardial infarction I25.2 Ac tive Assessment Abnormal electrocardiogram [ECG] [EKG] R94.31 Active Assessment Obesity, unspecified E66.9 Active Problem Chest pain, unspecified R07.9 Acti ve Problem Mixed hyperlipidemia E78.2 Active Problem Abnormal electrocardiogram [ECG] [EKG] R94.31 Active Problem Coronary angioplasty status Z98.61 Active Problem Hypertensive heart disease without heart failure I11.9 Active Assessment Old myocardial infarction I25.2 Ac tive Assessment Atherosclerotic heart diseas e of [place] coronary artery without angina pectoris I25.10 Active Assessment Hypertensive heart disease without heart failure I11.9 Active Assessment Coronary angioplasty status Z98.61 Active Problem Abnormal ECG 794.31 Active Problem Mixed hyperlipidemia 272.2 Active Assessment Chest pain, unspecified R07.9 Acti ve Problem Benign hypertensive heart disease without heart failur e 402.10 Active Problem Obesity, unspecified 278.00 Active Problem Postprocedural PCI status V45.82 Ac tive Medications Medication Code System Code Instructions Start Date End Date Status Dosage Simvastatin [facility] [address]-96 40 MG Orally Once a day Active 1 tablet Flexeril [facility] [address]-16 5 MG Orally as needed (prn) Active 1 tablet Carvedilol [facility] [address]-45 3.125 MG Orally once a day Active 1 tablet Plavix [facility] [address]-40 75 MG Orally Once a day A ctive 1 tablet Aspirin [facility] 494[address]-25345 81 MG Orally Once a day Act dianne 1 tablet Social History Social History Element Qualifiers Date Reported Tobacco Use: . Are you a: former smoker quit in 09/2012 after the [place] but does e-cigarettes October 11, 2015 Marital Status: . October 11, 2015 Do you drink alcohol? . Status: Yes moderately/weekends Sep Vital Signs Date/Time: October 11, 2015 Weight 195 lbs Cardiac Monitoring Heart Rate 80 /min Blood Pressure Diastolic 70 mm Hg Blood Pressure Systolic 120 mm Hg Summary Purpose eClinicalWorks Submission
--- OUTSIDE RECORDS SUMMARY | 2019-12-08 09:45 | XMS REPORT ---
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.9 Active Problem Hyperlipidemia, unspecified [...] not specified K21.9 Active Problem History of [place] (myocardial infarction) I25.2 Active Problem Rheumatoid arthritis M06.9 Active Assessment Chronic obstructive pulmonary disease, unspecified HOSPITAL UNIT CLERK D type J44.9 Active Problem GUCCI (obstructive sleep apnea) G47.33 Active Problem Hypertensive heart disease without heart failure I11.9 Active Problem Coronary artery disease invo lving [place] coronary artery of [place] heart, angina presence unspecified I25.10 Activ e Medications Medication Code System Code Instructions Start Date End Date Status Dosage Spiriva Respimat [facility] 45802425920 2.5 mcg inhalation QD JanuaryOctober 21, 2017 Active 2 inhalations Results No Known Results Summary Purpose eClinicalWorks Submission
--- OUTSIDE RECORDS SUMMARY | 2019-12-08 09:45 | XMS REPORT ---
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 Active Problem Hyperlipidemia, unspecified [...] not specified K21.9 Active Problem History of [place] (myocardial infarction) I25.2 Active Problem Rheumatoid arthritis M06.9 Active Assessment Seasonal allergic rhinitis, unspecified allergic rhinitis trigger J30.2 Active Problem GUCCI (obstructive sleep apnea) G47.33 Active Problem Hypertensive heart disease without heart failure I11.9 Active Problem Coronary artery disease invo lving [place] coronary artery of [place] heart, angina presence unspecified I25.10 Activ e Medications Medication Code System Code Instructions Start Date End Date Status Dosage Montelukast Sodium [facility] 48762903577 10 mg Orally Once a day Mar 31, 2017 Active 1 tablet in the evening Results No Known Results Summary Purpose eClinicalWorks Submission
--- OUTSIDE RECORDS SUMMARY | 2019-12-08 09:45 | XMS REPORT ---
Author Author Sujey Lopez Organization e[employer] Address Unknown Phone Unavailable Care Team Providers Care Power And Recovery Superintendent Name Role Phone Leydi Lopez CP Unavailable Allergies, Adverse Reactions, Alerts Substance Reaction Event Type N.K.D.A. 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.9 Active Problem Hyperlipidemia, unspecified hyperlipidemia E78.5 Active Problem Ulcerative colitis with complication, unspecified loca tion K51.919 Active Assessment Rheumatoid arthritis M06.9 Active Problem Seasonal allergic rhinitis, unspecified allergic rhinitis trigger J30.2 Active Assessment Constipation, unspecified constipation type K59.00 Active Assessment Gastroesophageal reflux disease, esophag itis presence not specified K21.9 Active Problem BMI 37.0-37.9, adult Z68.37 Active Problem Osteopenia of spine M85.88 Active Problem Non morbid obesity due to excess calories E66.09 Active Problem Polyp of colon, unspecified part of colon, unspecified type K63.5 Active Problem Gastroesophageal reflux disease, esophag itis presence not specified K21.9 Active Assessment Coronary artery disease invo lving [place] coronary artery of [place] heart, angina presence unspecified I25.10 Activ e Assessment Hyperlipidemia, unspecified hyperlipidemia E78.5 Active Assessment GUCCI (obstructive sleep apnea) G47.33 Active Assessment Chronic obstructive pulmonary disease, unspecified LIFE CLAIMS EXAMINER D type J44.9 Active Problem History of [place] (myocardial infarction) I25.2 Active Problem Rheumatoid arthritis M06.9 Active Assessment Hypertensive heart disease without heart failure I11.9 Active Problem GUCCI (obstructive sleep apnea) G47.33 Active Assessment Seasonal allergic rhinitis, unspecified allergic rhinitis trigger J30.2 Active Problem Hypertensive heart disease without heart failure I11.9 Active Problem Coronary artery disease invo lving [place] coronary artery of [place] heart, angina presence unspecified I25.10 Activ e Medications Medication Code System Code Instructions Start Date End Date Status Dosage Esomeprazole Magnesium [facility] 29438688781 40 mg Orally daily Active 1 tablet Spiriva Respimat ND 64638488503 2.5 mcg inhalation QD JanuaryOctober 21, 2017 Active 2 inhalations Aspir-Low ND 32006250207 81 MG Orally Once a day December 25, 2012 Active 1 tablet Montelukast Sodium ND 03271736788 10 mg Orally Once a day Mar 31, 2017 Active 1 tablet in the evening Cyclobenzaprine HCl ND 75325431174 7.5 MG Orally A ctive 1 tablet as needed Albuterol Sulfate HFA [facility] [address]-46 108 (90 Ba se) MCG/ACT Inhalation every 4-6 hrs PRN Jul 07, 2016 Active 2 puffs as neede d Fluticasone Propionate [facility] 37090277562 50 MCG/ACT Nasally Once a day Aug 07, 2015 Active 1 spray in each nost ril Simvastatin ND 05117270390 40 MG Orally Once a day December 25, 2012 Active 1 tablet in the evening Plavix [facility] 30623717252 75 MG Orally Once a day Acti ve 1 tablet Multivitamin [facility] 88771-72077 Active not def ined Tizanidine HCl [facility] 48838336574 4 MG Orally Active 1 capsule as needed Clopidogrel Bisulfate [facility] 08659391591 75 MG Orally Once a day Ju 2012 Active 1 tablet Gabapentin [facility] 65218672197 600 MG Orally as needed (prn) September Active 1 tablet Symbicort [facility] 47527503913 160-4.5 MCG/ACT Inhalation Twice a day Active 2 puffs Levocetirizine Dihydrochloride [facility] 36095158407 5 MG Orally Once a day Active 1 tablet in the evening Carvedilol [facility] 19484121656 3.125 MG Orally once a day December 25, 2012 Active 1 tablet with food Vitamin D [facility] [address]-74 6000 twice a day (bid) Active 1 capsule Sulfasalazine [facility] 07734189514 500 mg Orally Active 3 tablet Ranitidine HCl [facility] 89400070978 150 MG Orally QD-BID PRN Apr 10, 6 Active 1 capsule Nucynta ND 63350974093 75 MG Orally prn Aug 27, 2015 Active 1 tablet Vital Signs Date/Time: Aug 31, 2017 BMI 37.60 Index Weight 199 lbs Height 61 in Cardiac Monitoring Heart Rate 60 /min Blood Pressure Diastolic 78 mm Hg Blood Pressure Systolic 110 mm Hg Results No Known Results Summary Purpose eClinicalWorks Submission
--- OUTSIDE RECORDS SUMMARY | 2019-12-08 09:45 | XMS REPORT ---
Author Author Sujey Porter Organization e[employer] Address Unknown Phone Unavailable Care Team Providers Care Mobile Unit Assistant Name Role Phone Loli Porter Unavailable Encounters Encounter Location Date ECHO RESULTS [facility] May 14, 2015 Unknown [facility] Jun 11, 2015 allergies [facility] Jun 27, 2015 sinus infection [facility] Aug 07, 2015 Headaches [facility] Mar 07, 2015 ARTERIAL/ [facility] Apr 24, 2015 Needs call back from Medical Staff [facility] May 07, 2015 Unknown [facility] October 19, 2015 [place] [facility] [place] [place] October 11, 2015 echo & carotid dopplers [facility] [place] May 31, 2015 Arm hurting [facility] October 04, 2015 Sore throat [facility] October 16, 2015 Stomach problems [facility] Apr 30, 2016 Unknown [facility] Jun 10, 2016 Unknown [facility] Apr 10, 2016 Abdominal pain [facility] Apr 10, 2016 Follow[place]Up [facility] [place] [place] Apr 17, 2016 Stomach issues [facility] January 02, 2016 Office stress test [facility] [place] Apr 25, 2016 Allergies [facility] Mar 04, 2016 arterial doppler [facility] [place] Apr 25, 2016 WWE [facility] November 09, 2015 test results and feet hurting [facility] November 19, 2015 Follow-Up Prabhu Singh [place], [place] May [...] Active Problem Chronic obstructive pulmonary disease, unspecified COLLECT ON DELIVERY CLERK D type 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 2013Apr 30, 2016 Last Colonoscopy: . 2007Apr 30, 2016 Ethnicity . Status , Is tajik your prim terrell language? Yes Apr 30, [...] often? Socially Apr 30, 2016 Occupation: employed. [employer] Apr 30, 2016 Summary Purpose eClinicalWorks Submission
--- OUTSIDE RECORDS SUMMARY | 2019-12-08 09:45 | XMS REPORT ---
Author Author Sujey Porter Organization [employer] Address Unknown Phone Unavailable Care Team Providers Care White Washer Name Role Phone Loli Porter Unavailable Encounters Encounter Location Date ECHO RESULTS [facility] May 14, 2015 Unknown [facility] Jun 11, 2015 allergies [facility] Jun 27, 2015 sinus infection [facility] Aug 07, 2015 Headaches [facility] Mar 07, 2015 ARTERIAL/ [facility] Apr 24, 2015 Needs call back from Medical Staff [facility] May 07, 2015 Unknown [facility] October 19, 2015 Arm hurting [facility] October 04, 2015 Sore throat [facility] October 16, 2015 Follow-Up [facility]ab[facility] [place] [facility] [place] May 24, 2015 echo & carotid dopplers [facility] [place] May 31, 2015 Unknown [facility] Apr 10, 2016 Abdominal pain [facility] Apr 10, 2016 Stomach issues [facility] January 02, 2016 Allergies [facility] Mar 04, 2016 WWE [facility] November 09, 2015 test results and feet hurting 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 2013Apr 10, 2016 Last Colonoscopy: . 2007Apr 10, 2016 Ethnicity . Status , Is georgian your prim terrell language? Yes Apr 10, [...] often? Socially Apr 10, 2016 Occupation: employed. [employer] Apr 10, 2016 Summary Purpose eClinicalWorks Submission
--- OUTSIDE RECORDS SUMMARY | 2019-12-08 09:45 | XMS REPORT ---
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 Active Problem Coronary artery disease invo lving [place] coronary artery of [place] heart, angina presence unspecified I25.10 Activ e Problem Non morbid obesity due to excess calories E66.09 Active Problem Constipation, unspecified constipation type K59.00 Active Problem Rheumatoid arthritis M06.9 Active Medications Medication Code System Code Instructions Start Date End Date Status Dosage ProAir HFA [facility] 65675224945 108 (90 Base) MCG/ACT Inhala tion every 6 hrs Jul 22, 2018 Active 2 puffs as needed Ventolin HFA [facility] 28434106477 108 (90 Base) MCG/ACT Inhala tion every 6 hrs Jul 09, 2018 Inactive 2 puffs as needed Results No Known Results Summary Purpose eClinicalWorks Submission
--- OUTSIDE RECORDS SUMMARY | 2019-12-08 09:45 | XMS REPORT ---
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.9 Active Problem Hyperlipidemia, unspecified [...] not specified K21.9 Active Problem History of [place] (myocardial infarction) I25.2 Active Problem Rheumatoid arthritis M06.9 Active Assessment Seasonal allergic rhinitis, unspecified allergic rhinitis trigger J30.2 Active Problem GUCCI (obstructive sleep apnea) G47.33 Active Problem Hypertensive heart disease without heart failure I11.9 Active Problem Coronary artery disease invo lving [place] coronary artery of [place] heart, angina presence unspecified I25.10 Activ e Medications Medication Code System Code Instructions Start Date End Date Status Dosage Montelukast Sodium [facility] 94557783319 10 mg Orally Once a day Mar 31, 2017 Active 1 tablet in the evening Results No Known Results Summary Purpose eClinicalWorks Submission
--- OUTSIDE RECORDS SUMMARY | 2019-12-08 09:45 | XMS REPORT ---
Author Author Sujey Lopez [facility] eClinicalWorks Address Unknown Phone Unavailable Care Team Providers Care Second Class Welder Name Role Phone Leydi Lopez Unavailable Allergies, Adverse Reactions, Alerts Substance Reaction Event Type N.K.D.A. Info Not Available Non Drug Allergy Encounters Encounter Location Date ECHO RESULTS [facility] May 14, 2015 Unknown [facility] Jun 11, 2015 allergies [facility] Jun 27, 2015 sinus infection [facility] Aug 07, 2015 Headaches [facility] Mar 07, 2015 ARTERIAL/ [facility] Apr 24, 2015 Needs call back from Medical Staff [facility] May 07, 2015 Unknown [facility] October 19, 2015 Follow-Up [facility]ab[facility] [place] [place] Apr 17, 2016 Follow-Up [facility] [place] [place] October 11, 2015 Arm hurting [facility] October 04, 2015 Sore throat [facility] October 16, 2015 Stomach problems [facility] Apr 30, 2016 Follow-Up [facility]ab[facility] [place] [place] May 24, 2015 Unknown [facility] Apr 10, 2016 Abdominal pain [facility] Apr 10, 2016 Office stress test [facility] [place] Apr 25, 2016 Stomach issues [facility] January 02, 2016 arterial doppler [facility] [place] [place] Apr 25, 2016 Allergies [facility] Mar 04, 2016 WWE [facility] November 09, 2015 test results and feet hurting [facility] November 19, 2015 echo & carotid dopplers Prabhu Singh [...] Active Problem Chronic obstructive pulmonary disease, unspecified 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 Active Problem Coronary artery disease invo lving [place] coronary artery of [place] heart, angina presence unspecified I25.10 Activ e Problem Osteopenia of spine M85.88 Active Problem Allergic rhinitis J30.9 Active Problem Hypertensive heart disease without heart failure I11.9 Active Problem History of [place] (myocardial infarction) I25.2 Active Assessment Gastroesophageal reflux disease, esophag itis presence not specified K21.9 Active Problem Constipation, unspecified constipation type K59.00 Active Assessment Constipation, unspecified constipation type K59.00 Active Problem Non morbid obesity due to excess calories E66.09 Active Medications Medication Code System Code Instructions Start Date End Date Status Dosage Ranitidine HCl [facility] [address]-72 150 MG Orally QD-BID PRN Mar 272015 Active 1 capsule Linzess [facility] [address]-03 145 MCG Orally Once a day Apr 30, 2016 May 30, 2016 Active 1 capsule Carvedilol [facility] [address]-99 3.125 MG Orally Twice a day Active 1 tablet with food Fluticasone Propionate [facility] [address]-79 50 MCG/ACT Nasall y Once a day Aug 07, 2015 Active 1 spray in each nost ril Clopidogrel Bisulfate [facility] [address]-75 75 MG Orally Once a day Active 1 tablet Simvastatin [facility] [address]-26 40 MG Orally Once a day Active 1 tablet in the evening Symbicort [facility] [address]-69 160-4.5 MCG/ACT Inhalation Twice a day May 07, 2016 Active 2 puffs ProAir HFA [facility] [address]-00 108 (90 Base) MC G/ACT Inhalation every 4 hrs as needed for increased SOB February 13, 2015 Active 2 pu ffs as needed Nucynta [facility] [address]-19 75 MG Orally every 6 hrs Active 1 tablet Sulfasalazine [facility] [address]-46 500 mg Orally 2 in the morning and 2 at night Active 1 tablet Aspir-Low [facility] [address]-63 81 MG Orally Once a day Active 1 tablet Social History Social History Element Qualifiers Date Reported Flu Vaccine: . 2013Apr 30, 2016 Last Colonoscopy: . 2007Apr 30, 2016 Ethnicity . Status , Is citizen of [place] your prim terrell language? Yes Apr 30, [...] often? Socially Apr 30, 2016 Occupation: employed. [employer] Apr 30, 2016 Family history Qualifier Description Comment Date Reported Maternal Grandmother Comment not available Apr Paternal Grandmother Comment not available Apr Siblings uterine cancer Apr 30, 2016 Maternal Grandfather Comment not available Apr Children alive son-gout Apr 30, 2016 Father cardiomegaly Apr 30, 2016 Paternal Grandfather Comment not available Apr Mother lung cancer, bone cancer, brain cancer Apr 30, 2016 Other: Comment not available Apr 30 16 Vital Signs Date/Time: Apr 30, 2016 Weight 199 lbs Height 61 in Cardiac Monitoring Heart Rate 85 /min Blood Pressure Diastolic 84 mm Hg Blood Pressure Systolic 118 mm Hg Summary Purpose eClinicalWorks Submission
--- OUTSIDE RECORDS SUMMARY | 2019-12-08 09:45 | XMS REPORT ---
Author Author Sujey Lopez Organization eClinicalWorks Address Unknown Phone Unavailable Care Team Providers Care Water Rights Specialist Name Role Phone Leydi Lopez CP Unavailable Allergies, Adverse Reactions, Alerts Substance Reaction Event Type N.K.D.A. Info Not Available Non Drug Allergy Encounters Encounter Location Date ECHO RESULTS [facility] May 14, 2015 Unknown [facility] Jun 11, 2015 allergies [facility] Jun 27, 2015 sinus infection [facility] Aug 07, 2015 Headaches [facility] Mar 07, 2015 ARTERIAL/ [facility] Apr 24, 2015 Needs call back from Medical Staff [facility] May 07, 2015 Unknown [facility] October 19, 2015 Arm hurting [facility] October 04, 2015 Sore throat [facility] October 16, 2015 Follow-Up Prab[facility] [place], [place] October 11, 2015 Follow-Up Prabhu [place], [place] May 24, 2015 echo & carotid dopplers Prabhu Singh [place], [place] May 31, 2015 WWE [facility] November 09, 2015 test results and feet hurting [facility] November 19, 2015 Problems Problem Type Condition ICD-9 Code Onset Dates Condition Statu s Problem Non morbid obesity due to excess calories E66.09 Active Problem Hyperlipidemia, unspecified hyperlipidemia E78.5 Active Problem Rheumatoid arthritis M06.9 Active Problem Thrombocytopenia D69.6 Active Assessment Pain in right foot M79.671 Active Problem Osteopenia of spine M85.88 Active Assessment Pain of left foot M79.672 Active Problem Leukopenia, unspecified type D72.819 Active Problem Coronary artery disease invo lving [place] coronary artery of [place] heart, angina presence unspecified I25.10 Activ e Problem GUCCI (obstructive sleep apnea) G47.33 Active Problem Allergic rhinitis J30.9 Active Problem Chronic obstructive pulmonary disease, unspecified 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 Active Assessment Leukopenia, unspecified type D72.819 Active Assessment Coronary artery disease invo lving [place] coronary artery of [place] heart, angina presence unspecified I25.10 Activ e Assessment BMI 37.0-37.9, adult Z68.37 Active Assessment Thrombocytopenia D69.6 Active Assessment Hypertensive heart disease without heart failure I11.9 Active Problem Hypertensive heart disease without heart failure I11.9 Active Assessment Hyperlipidemia, unspecified hyperlipidemia E78.5 Active Problem History of [place] (myocardial infarction) I25.2 Active Assessment Allergic rhinitis J30.9 Active Problem Constipation, unspecified constipation type K59.00 Active Medications Medication Code System Code Instructions Start Date End Date Status Dosage Sulfasalazine [facility] [address]-60 500 mg Orally 2 in the morning and 2 at night Active 1 tablet Aspir-Low [facility] [address]-31 81 MG Orally Once a day Active 1 tablet Imitrex [facility] [address]-62 100 mg Orally at onset headache may repeat in 2 hrs max 2 a day Aug 21, 2015 Active 1 tablet Nucynta [facility] [address]-62 75 MG Orally every 6 hrs Active 1 tablet Carvedilol [facility] [address]-15 3.125 MG Orally Twice a day Active 1 tablet with food Simvastatin [facility] [address]-29 40 MG Orally Once a day Active 1 tablet in the evening Fluticasone Propionate [facility] [address]-16 50 MCG/ACT Nasall y Once a day Aug 07, 2015 Active 1 spray in each nost ril ProAir HFA [facility] [address]-23 108 (90 Base) MC G/ACT Inhalation every 4 hrs as needed for increased SOB February 13, 2015 Active 2 pu ffs as needed Symbicort [facility] [address]-87 160-4.5 MCG/ACT Inhalation Twice a day May 07, 2016 Active 2 puffs Clopidogrel Bisulfate [facility] [address]-62 75 MG Orally Once a day Active 1 tablet Social History Social History Element Qualifiers Date Reported Flu Vaccine: . 2013November 19, 2015 Last Colonoscopy: . 2007November 19, 2015 Ethnicity . Status , Is eritrean your prim terrell language? Yes November 19, 2015 Last Bone Density: . 2010November 19, 2015 children . 2 November 19, 2015 Tobacco Use: . Are you a: former smoker 10/14/12Oct Use of recreational / street drugs? . Answer: No 2015 Marital Status: . November 19, 2015 Do you drink alcohol? . Status: Yes, Type: MARGARITAS, How often? Socially November 19, 2015 Occupation: employed. [employer] November 19, 2015 Vital Signs Date/Time: November 19, 2015 Weight 196 lbs Height 61 in Cardiac Monitoring Heart Rate 80 /min Blood Pressure Diastolic 70 mm Hg Blood Pressure Systolic 130 mm Hg Summary Purpose eClinicalWorks Submission
--- OUTSIDE RECORDS SUMMARY | 2019-12-08 09:45 | XMS REPORT ---
Author Author Sujey Lopez Organization [employer] Address Unknown Phone Unavailable Care Team Providers Care Voucher Clerk Name Role Phone Leydi Lopez CP Unavailable Allergies No Known Allergies Problems Problem Type Condition Code Onset Dates Condition Statu s Problem Constipation, unspecified constipation type K59.00 Active Problem Chronic obstructive pulmonary disease, unspecified [employer] D type J44.9 Active Problem Hyperlipidemia, unspecified [...] not specified K21.9 Active Problem History of [place] (myocardial infarction) I25.2 Active Problem Rheumatoid arthritis M06.9 Active Problem GUCCI (obstructive sleep apnea) G47.33 Active Problem Hypertensive heart disease without heart failure I11.9 Active Problem Coronary artery disease invo lving [place] coronary artery of [place] heart, angina presence unspecified I25.10 Activ e Medications Medication Code System Code Instructions Start Date End Date Status Dosage Fluticasone Propionate [facility] 04129597607 50 MCG/ACT Nasally Once a day Aug 07, 2015 Active 1 spray in each nost ril Results No Known Results Summary Purpose eClinicalWorks Submission
--- OUTSIDE RECORDS SUMMARY | 2019-12-08 09:45 | XMS REPORT ---
Author Author Sujey Singh Organization [employer] Address Unknown Phone Unavailable Care Team Providers Care Mud Analysis Well Logging Captain Name Role Phone Prabhu Singh Unavailable Encounters Encounter Location Date ECHO RESULTS [facility] May 14, 2015 Unknown [facility] Jun 11, 2015 allergies [facility] Jun 27, 2015 sinus infection [facility] Aug 07, 2015 Headaches [facility] Mar 07, 2015 ARTERIAL/ [facility] Apr 24, 2015 Needs call back from Medical Staff [facility] May 07, 2015 Unknown [facility] October 19, 2015 Office stress test Prabhu Singh [place], [place] Apr 25, 2016 Follow-Up Prabhu Singh [facility], [place] Apr 17, 2016 Arm hurting [facility] October 04, 2015 Sore throat [facility] October 16, 2015 Follow-Up Prabhu Singh [facility], [place] May 24, 2015 echo & carotid dopplers Prabhu Singh [facility], [place] May 31, 2015 Unknown [facility] Apr 10, 2016 Abdominal pain [facility] Apr 10, 2016 Stomach issues [facility] January 02, 2016 Allergies [facility] Mar 04, 2016 WWE [facility] November 09, 2015 test results and feet hurting [facility] November 19, 2015 Follow-Up Prabhu Singh [place], [place] October 11, 2015 Problems Problem Type Condition ICD-9 Code Onset Dates Condition Statu s Problem Coronary atherosclerosis of [place] coronary artery 414 .01 Active Problem Abnormal electrocardiogram [ECG] [EKG] R94.31 Active Problem Obesity, unspecified E66.9 Active Problem Chest pain, unspecified R07.9 Acti ve Problem Atherosclerotic heart diseas e of [place] coronary artery without angina pectoris I25.10 Active Problem Atherosclerotic heart diseas e of [place] coronary artery with unspecified angina pectoris I25.119 Active Problem Hypertensive heart disease without heart failure I11.9 Active Problem Mixed hyperlipidemia E78.2 Active Problem Old myocardial infarction I25.2 Ac tive Problem Coronary angioplasty status Z98.61 Active Problem Mixed hyperlipidemia 272.2 Active Problem Benign hypertensive heart disease without heart failur e 402.10 Active Problem Obesity, unspecified 278.00 Active Problem Postprocedural PCI status V45.82 Ac tive Problem Abnormal ECG 794.31 Active Problem Old myocardial infarction 412 Ac tive Social History Social History Element Qualifiers Date Reported Tobacco Use: . Are you a: former smoker quit in 09/2012 after the [place] but does e-cigarettes Apr 17, 2016 Marital Status: . Apr 17, 2016 Do you drink alcohol? . Status: Yes moderately/weekends Sep 2015 Summary Purpose [employer]ClinicalWorks Submission
--- OUTSIDE RECORDS SUMMARY | 2019-12-08 09:45 | XMS REPORT ---
Author Author Sujey Singh Organization [employer] Address Unknown Phone Unavailable Care Team Providers Care Forge Shop Supervisor Name Role Phone Prabhu Singh Unavailable Encounters Encounter Location Date ECHO RESULTS [facility] May 14, 2015 Unknown [facility] Jun 11, 2015 allergies [facility] Jun 27, 2015 sinus infection [facility] Aug 07, 2015 Headaches [facility] Mar 07, 2015 ARTERIAL/ [facility] Apr 24, 2015 Needs call back from Medical Staff [facility] May 07, 2015 Unknown [facility] October 19, 2015 Office stress test Prabhu Singh MD, [place] Apr 25, 2016 Follow-Up Prabhu Singh MD, [place] Apr 17, 2016 Arm hurting [facility] October 04, 2015 Sore throat [facility] October 16, 2015 Follow-Up Prabhu Singh MD, [place] May 24, 2015 echo & carotid dopplers Prabhu Singh MD, [place] May 31, 2015 Unknown [facility] Apr 10, 2016 Abdominal pain [facility] Apr 10, 2016 arterial doppler Prabhu Singh MD, [place] Apr 25, 2016 Stomach issues [facility] January 02, 2016 Allergies [facility] Mar 04, 2016 WWE [facility] November 09, 2015 test results and feet hurting [facility] November 19, 2015 Follow-Up Prabhu Singh [place], [place] October 11, 2015 Problems Problem Type Condition ICD-9 Code Onset Dates Condition Statu s Problem Coronary atherosclerosis of [place] coronary artery 414 .01 Active Problem Abnormal electrocardiogram [ECG] [EKG] R94.31 Active Problem Obesity, unspecified E66.9 Active Problem Chest pain, unspecified R07.9 Acti ve Problem Atherosclerotic heart diseas e of [place] coronary artery without angina pectoris I25.10 Active Problem Atherosclerotic heart diseas e of [place] coronary artery with unspecified angina pectoris I25.119 [...] former smoker quit in 09/2012 after the [place] but does e-cigarettes Apr 17, 2016 Marital Status: . Apr 17, 2016 Do you drink alcohol? . Status: Yes moderately/weekends Mar Summary Purpose eClinicalWorks Submission
--- OUTSIDE RECORDS SUMMARY | 2019-12-08 09:45 | XMS REPORT ---
Author Author Sujey Singh Organization [employer] Address Unknown Phone Unavailable Care Team Providers Care Wrecking Supervisor Name Role Phone Prabhu Singh Unavailable Allergies, Adverse Reactions, Alerts Substance Reaction Event Type N.K.D.A. Info Not Available Non Drug Allergy Encounters Encounter Location Date ECHO RESULTS [facility] May 14, 2015 Unknown [facility] Jun 11, 2015 allergies [facility] Jun 27, 2015 sinus infection [facility] Aug 07, 2015 Headaches [facility] Mar 07, 2015 ARTERIAL/ [facility] Apr 24, 2015 Needs call back from Medical Staff [facility] May 07, 2015 Unknown [facility] October 19, 2015 Follow-Up Prabhu Singh MD, [place] Apr 17, 2016 Arm hurting [facility] October 04, 2015 Sore throat [facility] October 16, 2015 Follow-Up Prabhu Singh MD, [place] May 24, 2015 echo & carotid dopplers Prabhu Singh [place], [place] May 31, 2015 Unknown [facility] Apr 10, 2016 Abdominal pain [facility] Apr 10, 2016 Stomach issues [facility] January 02, 2016 Allergies [facility] Mar 04, 2016 WWE [facility] November 09, 2015 test results and feet hurting [facility] November 19, 2015 Follow-Up Prabhu Singh [place], [place] October 11, 2015 Problems Problem Type Condition ICD-9 Code Onset Dates Condition Statu s Problem Coronary atherosclerosis of [place] coronary artery 414 .01 Active Problem Abnormal electrocardiogram [ECG] [EKG] R94.31 Active Problem Obesity, unspecified E66.9 Active Problem Chest pain, unspecified R07.9 Acti ve Assessment Mixed hyperlipidemia E78.2 Active Problem Atherosclerotic heart diseas e of [place] coronary artery without angina pectoris I25.10 Active Assessment Abnormal electrocardiogram [ECG] [EKG] R94.31 Active Assessment Obesity, unspecified E66.9 Active Problem Atherosclerotic heart diseas e of [place] coronary artery with unspecified angina pectoris I25.119 Active Problem Hypertensive heart disease without heart failure I11.9 Active Problem Mixed hyperlipidemia E78.2 Active Problem Old myocardial infarction I25.2 Ac tive Problem Coronary angioplasty status Z98.61 Active Assessment Old myocardial infarction I25.2 Ac tive Assessment Atherosclerotic heart diseas e of [place] coronary artery with unspecified angina pectoris I25.119 Active Assessment Hypertensive heart disease without heart failure I11.9 Active Assessment Coronary angioplasty status Z98.61 Active Problem Mixed hyperlipidemia 272.2 Active Problem Benign hypertensive heart disease without heart failur e 402.10 Active Problem Obesity, unspecified 278.00 Active Problem Postprocedural PCI status V45.82 Ac tive Problem Abnormal ECG 794.31 Active Problem Old myocardial infarction 412 Ac tive Medications Medication Code System Code Instructions Start Date End Date Status Dosage Symbicort [facility] [address]-09 160-4.5 MCG/ACT Inhalation Twice a d ay Active 2 puffs Simvastatin [facility] [address]-98 40 MG Orally Once a day Active 1 tablet Cipro [facility] [address]-93 250 MG Orally every 12 hrs Active 1 tablet Nucynta [facility] [address]-96 75 MG Orally every 6 hrs Active 1 tablet Plavix [facility] [address]-64 75 MG Orally Once a day A ctive 1 tablet Aspirin [facility] 27026-36390 81 MG Orally Once a day Act dianne 1 tablet Ranitidine HCl [facility] [address]-36 150 MG Orally Once a day Active 1 capsule at bedtime Sulfasalazine [facility] [address]-60 500 mg Orally every 6 hrs Active 1 tablet ProAir HFA [facility] [address]-30 108 (90 Base) MCG/ACT Inhal ation every 4 hrs Active 2 puffs as needed Carvedilol [facility] [address]-66 3.125 MG Orally once a day Active 1 tablet Social History Social History Element Qualifiers Date Reported Tobacco Use: . Are you a: former smoker quit in 09/[address] [place] but does e-cigarettes Apr 17, 2016 Marital Status: . Apr 17, 2016 Do you drink alcohol? . Status: Yes moderately/weekends Sep 2015 Vital Signs Date/Time: Apr 17, 2016 Weight 195 lbs Cardiac Monitoring Heart Rate 78 /min Blood Pressure Diastolic 80 mm Hg Blood Pressure Systolic 120 mm Hg Summary Purpose eClinicalWorks Submission
--- OUTSIDE RECORDS SUMMARY | 2019-12-08 09:46 | XMS REPORT ---
Author Author Sujey Lopez Organization [employer] Address Unknown Phone Unavailable Care Team Providers Care Lobster Man Name Role Phone Leydi Lopez CP Unavailable Allergies, Adverse Reactions, Alerts Substance Reaction Event Type N.K.D.A. Info Not Available Non Drug Allergy Problems Problem Type Condition Code Onset Dates Condition Statu s Problem Non morbid obesity due to excess calories E66.09 Active Problem Hyperlipidemia, unspecified hyperlipidemia E78.5 Active Problem Rheumatoid arthritis M06.9 Active Problem Polyp of colon, unspecified part of colon, unspecified type K63.5 Active Problem Gastroesophageal reflux disease, esophag itis presence not specified K21.9 Active Problem Seasonal allergic rhinitis, unspecified allergic rhinitis trigger J30.2 Active Problem Coronary artery disease invo lving [place] coronary artery of [place] heart, angina presence unspecified I25.10 Activ e Problem GUCCI (obstructive sleep apnea) G47.33 Active Problem Osteopenia of spine M85.88 Active Problem Chronic obstructive pulmonary disease, unspecified 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 Active Assessment Seasonal allergic rhinitis, unspecified allergic rhinitis trigger J30.2 Active Problem Hypertensive heart disease without heart failure I11.9 Active Problem History of [place] (myocardial infarction) I25.2 Active Assessment Chronic obstructive pulmonary disease, unspecified 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 Active Problem Constipation, unspecified constipation type K59.00 Active Medications Medication Code System Code Instructions Start Date End Date Status Dosage Montelukast Sodium [facility] [address]-63 10 MG Orally Once a day Sep Active 1 tablet in the evening Nucynta [facility] [address]-14 75 MG Orally prn Active 1 tablet Ranitidine HCl [facility] [address]-07 150 MG Orally QD-BID PRN Mar 272015 Active 1 capsule Symbicort [facility] [address]-53 160-4.5 MCG/ACT Inhalation Twice a day Jul 07, 2016 Apr 06, 2017 Active 2 puffs Aspir-Low [facility] [address]-73 81 MG Orally Once a day Active 1 tablet Simvastatin [facility] [address]-21 40 MG Orally Once a day Active 1 tablet in the evening Carvedilol [facility] [address]-11 3.125 MG Orally once a day Active 1 tablet with food Albuterol Sulfate HFA [facility] [address]-85 108 (90 Ba se) MCG/ACT Inhalation every 4-6 hrs PRN Jul 07, 2016 Active 2 puffs as neede d Clopidogrel Bisulfate [facility] [address]-66 75 MG Orally Once a day Active 1 tablet Fluticasone Propionate [facility] [address]-02 50 MCG/ACT Nasall y Once a day Aug 07, 2015 Active 1 spray in each nost ril Sulfasalazine [facility] [address]-42 500 mg Orally 2 in the morning and 2 at night Active 1 tablet Vital Signs Date/Time: October 13, 2016 BMI 37.03 Index Weight 196 lbs Height 61 in Cardiac Monitoring Heart Rate 88 /min Blood Pressure Diastolic 70 mm Hg Blood Pressure Systolic 120 mm Hg Results No Known Results Summary Purpose eClinicalWorks Submission
--- OUTSIDE RECORDS SUMMARY | 2019-12-08 09:46 | XMS REPORT ---
Author Author Sujey Singh Organization [employer] Address Unknown Phone Unavailable Care Team Providers Care Canceling Machine Operator Name Role Phone Prabhu Singh CP Unavailable Allergies, Adverse Reactions, Alerts Substance Reaction Event Type N.K.D.A. Info Not Available Non Drug Allergy Problems Problem Type Condition Code Onset Dates Condition Statu s Problem Old myocardial infarction 412 Ac tive Assessment Body mass index (BMI) 36.0-36.9, adult Z68.36 Active Problem Coronary atherosclerosis of [place] coronary artery 414 .01 Active Assessment Obesity, unspecified E66.9 Active Problem Obesity, unspecified E66.9 Active Problem Mixed hyperlipidemia E78.2 Active Problem Abnormal electrocardiogram [ECG] [EKG] R94.31 Active Problem Atherosclerotic heart diseas e of [place] coronary artery with unspecified angina pectoris I25.119 [...] Active Problem Atherosclerotic heart diseas e of [place] coronary artery without angina pectoris I25.10 Active Problem Old myocardial infarction I25.2 Ac tive Assessment Atherosclerotic heart diseas e of [place] coronary artery with unspecified angina pectoris I25.119 [...] Instructions Start Date End Date Status Dosage Aspirin [facility] [address]49 81 MG Orally Once a day Acti [place] 1 [place] [address]-97 108 (90 Base) MCG/ACT Inhalation ev taco 4 hrs Active 2 puffs as needed Cipro [facility] [address]-28 250 MG Orally every 12 hrs Active 1 tablet Sulfasalazine [facility] [address]-63 500 mg Orally every 6 hrs Active 1 tablet Symbicort [facility] [address]-42 160-4.5 MCG/ACT Inhalation Twice a day Active 2 puffs Nucynta [facility] [address]-38 75 MG Orally every 6 hrs A ctive 1 tablet Plavix [facility] [address]-33 75 MG Orally Once a day Ac tive 1 tablet Simvastatin [facility] [address]-17 40 MG Orally Once a day Active 1 tablet Ranitidine HCl [facility] [address]-76 150 MG Orally Once a day Active 1 capsule at bedtime Carvedilol [facility] [address]-95 3.125 MG Orally once a day Active 1 tablet Vital Signs Date/Time: October 16, 2016 BMI 36.84 Index Weight 195 lbs Height 5 ft 1 in in Cardiac Monitoring Heart Rate 83 /min Blood Pressure Diastolic 60 mm Hg Blood Pressure Systolic 130 mm Hg Results No Known Results Summary Purpose eClinicalWorks Submission
--- OUTSIDE RECORDS SUMMARY | 2019-12-08 09:46 | XMS REPORT ---
Author Author Sujey Valenzuela [facility] eClinicalWorks Address Unknown Phone Unavailable Care Team Providers Care Turntable Worker Name Role Phone Camryn Valenzuela Unavailable Encounters Encounter Location Date Unknown [facility] October 19, [address] [facility] Apr 30, [address] [facility] Jun 10, [address] [facility] Apr 10, [address] [facility] Apr 10, [address] [facility] January 02, [address] [facility] Mar 04, [address] [facility] November 09, 2015 test results and feet hurting [facility] November 19, [address] [facility] Jun 12, [address] [facility] May 14, [address] [facility] Jun 11, [address] [facility] Jun 27, [address] [facility] Aug 07, [address] [facility] Mar 07, 2015 ARTERIAL/ [facility] Apr 24, 2015 Needs call back from Medical Staff [facility] May 07, 2015 preop clearance and cough [facility] Jun 24, [address] [facility] Jun 24, [address] [facility] October 04, [address] [facility] October 16, 2015 Follow-Up Prabhu Singh [place], [place] October 11, 2015 Follow-Up Prabhu [facility], [place] Apr 17, 2016 Office stress test Prabhu Singh [facility], [facility] Apr 25, 2016 arterial doppler Prabhu Singh [facility] Apr 25, [address] 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.9 Active Assessment Polyp of colon, unspecified part of colon, unspecified type K63.5 Active Problem Hypertensive heart disease without heart failure I11.9 Active Problem History of [place] (myocardial infarction) I25.2 Active Assessment Chronic obstructive pulmonary disease, unspecified COMPRESSED GAS EQUIPMENT MECHANIC D type J44.9 Active Problem Constipation, unspecified constipation type K59.00 Active Medications Medication Code System Code Instructions Start Date End Date Status Dosage Symbicort [employer] [address]-41 160-4.5 MCG/ACT Inhalation Twice a day Jul 07, 2016 January 03, 2017 Active 2 puffs Aspir-Low [employer] [address]-40 81 MG Orally Once a day Active 1 tablet Fluticasone Propionate [employer] [address]-97 50 MCG/ACT Nasall y Once a day Aug 07, 2015 Active 1 spray in each nost ril Nucynta [employer] [address]-74 75 MG Orally prn Active 1 tablet Sulfasalazine [employer] [address]-23 500 mg Orally 2 in the morning and 2 at night Active 1 tablet Albuterol Sulfate HFA [employer] [address]-75 108 (90 Ba se) MCG/ACT Inhalation every 4 hrs Jul 07, 2016 Active 2 puffs as neede d Ranitidine HCl [employer] [address]-25 150 MG Orally QD-BID PRN Mar 272015 Active 1 capsule Carvedilol [facility] [address]-54 3.125 MG Orally once a day Active 1 tablet with food Clopidogrel Bisulfate [facility] [address]-75 75 MG Orally Once a day Active 1 tablet ProAir HFA [facility] [address]-36 108 (90 Base) MC G/ACT Inhalation every 4 hrs as needed for increased SOB February 13, 2015 Inactive 2 pu ffs as needed Simvastatin [facility] [address]-80 40 MG Orally Once a day Active 1 tablet in the evening Social History Social History Element Qualifiers Date Reported Flu Vaccine: . 2015Jul 07, 2016 Last Colonoscopy: . 2015Jul 07, 2016 Ethnicity . Status , Is sami your prim terrell language? Yes Jul 07, 2016 Last Bone Density: . 2010Jul 07, 2016 children . 2 Jul 07, 2016 Tobacco Use: . Are you a: former smoker 10/14/12 Jul 07, 2016 Use of recreational / street drugs? . Answer: No Jul 07, 2016 Marital Status: . Jul 07, 2016 Do you drink alcohol? . Status: Yes, Type: MARGARITAS, How often? Socially Jul 07, 2016 Occupation: employed. [employer] Jul 07, 2016 Family history Qualifier Description Comment Date Reported Maternal Grandmother Comment not available Jun 262015 Paternal Grandmother Comment not available Jun 262015 Siblings uterine cancer Jul 07, 2016 Maternal Grandfather Comment not available Jun 262015 Children alive son-gout Jul 07, 2016 Father cardiomegaly Jul 07, 2016 Paternal Grandfather Comment not available Jun 262015 Mother lung cancer, bone cancer, brain cancer Jul 07, 2016 Other: Comment not available Jul 07 16 Vital Signs Date/Time: Jul 07, 2016 Weight 194 lbs Height 61 in Cardiac Monitoring Heart Rate 80 /min Blood Pressure Diastolic 80 mm Hg Blood Pressure Systolic 110 mm Hg Summary Purpose eClinicalWorks Submission
--- OUTSIDE RECORDS SUMMARY | 2019-12-08 09:46 | XMS REPORT ---
Author Author Sujey Singh Organization eClinicalWorks Address Unknown Phone Unavailable Care Team Providers Care Meeting Manager Name Role Phone Prabhu Singh CP Unavailable Allergies No Known Allergies Problems Problem Type Condition Code Onset Dates Condition Statu s Problem Coronary atherosclerosis of [place] coronary artery 414 .01 Active Problem Abnormal electrocardiogram [ECG] [EKG] R94.31 Active Problem Obesity, unspecified E66.9 Active Problem Chest pain, unspecified R07.9 Acti ve Problem Atherosclerotic heart diseas e of [place] coronary artery without angina pectoris I25.10 Active Problem Atherosclerotic heart diseas e of [place] coronary artery with unspecified angina pectoris I25.119 [...] Old myocardial infarction 412 Ac tive Medications No Known Medications Results No Known Results Summary Purpose eClinicalWorks Submission
--- OUTSIDE RECORDS SUMMARY | 2019-12-08 09:46 | XMS REPORT ---
Author Author Sujey Valenzuela [facility] eClinicalWorks Address Unknown Phone Unavailable Care Team Providers Care Ship'S Master Name Role Phone Camryn Valenzuela CP Unavailable Encounters Encounter Location Date Unknown [facility] October 19, 2015 Office stress test Prabhu Singh [facility], [place] Apr 25, 2016 Follow-Up Prabhu Singh [facility], [place] Apr 17, 2016 Follow-Up Prabhu [facility] [place] [place] October 11, 2015 Stomach problems [facility] Apr 30, 2016 Unknown [facility] Jun 10, 2016 arterial doppler Prabhu [facility] [place] Apr 25, 2016 Unknown [facility] Apr 10, 2016 Abdominal pain [facility] Apr 10, 2016 Stomach issues [facility] January 02, 2016 Allergies [facility] Mar 04, 2016 WWE [facility] November 09, 2015 test results and feet hurting [facility] November 19, 2015 Unknown [facility] Jun 12, 2016 ECHO RESULTS [facility] May 14, 2015 Unknown [facility] Jun 11, 2015 allergies [facility] Jun 27, 2015 sinus infection [facility] Aug 07, 2015 Headaches [facility] Mar 07, 2015 ARTERIAL/ [facility] Apr 24, 2015 Needs call back from Medical Staff [facility] May 07, 2015 preop clearance and cough [facility] Jun 24, 2016 Medical Clearance [facility] Jun 24, 2016 Arm hurting [facility] October 04, 2015 Sore throat [facility] October 16, 2015 ALLERGIES [facility] Sep 15, 2016 Unknown [facility] Sep 16, 2016 Follow-Up Prabhu Singh [facility], [place] May 24, 2015 echo & carotid dopplers Prabhu Singh [facility], [place] May 31, 2015 Unknown [facility] Jul 03, 2016 ABD PAIN [facility] Jul 07, 2016 Unknown [facility] Aug 05, 2016 abd [facility] Aug 04, 2016 Problems Problem Type Condition ICD-9 Code Onset Dates Condition Statu s Problem Rheumatoid arthritis M06.9 Active Problem GUCCI (obstructive sleep apnea) G47.33 Active Problem Hyperlipidemia, unspecified hyperlipidemia E78.5 Active Problem Polyp of colon, unspecified part of colon, unspecified type K63.5 Active Problem Gastroesophageal reflux disease, esophag itis presence not specified K21.9 Active Problem Seasonal allergic rhinitis, unspecified allergic rhinitis trigger J30.2 Active Problem Chronic obstructive pulmonary disease, unspecified 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 Active Problem Coronary artery disease invo lving [place] coronary artery of [place] heart, angina presence unspecified I25.10 Activ e Problem Osteopenia of spine M85.88 Active Problem Allergic rhinitis J30.9 Active Problem Hypertensive heart disease without heart failure I11.9 Active Problem History of [place] (myocardial infarction) I25.2 Active Problem Constipation, unspecified constipation type K59.00 Active Problem Non morbid obesity due to excess calories E66.09 Active Medications Medication Code System Code Instructions Start Date End Date Status Dosage Zithromax Z-Jose Alejandro MED[employer] [address]-43 250 MG Orally Once a day Sep 16, 2016 Sep 21, 2016 Active 2 tablets on the first day, then 1 tablet daily for 4 days Social History Social History Element Qualifiers Date Reported Flu Vaccine: . 2015Sep 15, 2016 Last Colonoscopy: . 2015Sep 15, 2016 Ethnicity . Status , Is kiswahili your prim terrell language? Yes Sep 15, 2016 Last Bone Density: . 2010Sep 15, 2016 children . 2 Sep 15, 2016 Tobacco Use: . Are you a: former smoker 10/14/12 Sep 15, 2016 Use of recreational / street drugs? . Answer: No Sep 15, 2016 Marital Status: . Sep 15, 2016 Do you drink alcohol? . Status: Yes, Type: MARGARITAS, How often? Socially Sep 15, 2016 Occupation: employed. [employer] Sep 15, 2016 Summary Purpose eClinicalWorks Submission
--- OUTSIDE RECORDS SUMMARY | 2019-12-08 09:46 | XMS REPORT ---
Author Author Sujey Lopez [facility] eClinicalWorks Address Unknown Phone Unavailable Care Team Providers Care Insulation Estimator Name Role Phone Leydi Lopez CP Unavailable Allergies, Adverse Reactions, Alerts Substance Reaction Event Type N.K.D.A. Info Not Available Non Drug Allergy Encounters Encounter Location Date Unknown [facility] October 19, 2015 Stomach problems [facility] Apr 30, 2016 Unknown [facility] Jun 10, 2016 Unknown [facility] Apr 10, 2016 Abdominal pain [facility] Apr 10, 2016 Stomach issues [facility] January 02, 2016 Allergies [facility] Mar 04, 2016 WWE [facility] November 09, 2015 test results and feet hurting [facility] November 19, 2015 Unknown [facility] Jun 12, 2016 ECHO RESULTS [facility] May 14, 2015 Unknown [facility] Jun 11, 2015 allergies [facility] Jun 27, 2015 sinus infection [facility] Aug 07, 2015 Headaches [facility] Mar 07, 2015 ARTERIAL/ [facility] Apr 24, 2015 Needs call back from Medical Staff [facility] May 07, 2015 preop clearance and cough [facility] Jun 24, 2016 Medical Clearance [facility] Jun 24, 2016 Arm hurting [facility] October 04, 2015 Sore throat [facility] October 16, 2015 Office stress test Prabhu Singh MD, [place] Apr 25, 2016 arterial doppler Prabhu Singh MD, [place] Apr 25, 2016 Follow-Up Prabhu Singh MD, [place] May 24, 2015 echo & carotid dopplers Prabhu Singh MD, [place] May 31, 2015 Follow-Up Prabhu Singh MD, [place] October 11, 2015 Follow-Up Prabhu Singh MD, [place] Apr 17, 2016 Problems Problem Type Condition ICD-9 Code [...] Active Problem Chronic obstructive pulmonary disease, unspecified 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 Active Assessment Encounter for other preprocedural examination Z01.818 Active Problem Hypertensive heart disease without heart failure I11.9 Active Assessment Polyp of colon, unspecified part of colon, unspecified type K63.5 Active Problem History of [place] (myocardial infarction) I25.2 Active Assessment Hypertensive heart disease without heart failure I11.9 Active Problem Constipation, unspecified constipation type K59.00 Active Medications Medication Code System Code Instructions Start Date End Date Status Dosage Simvastatin [facility] [address]-33 40 MG Orally Once a day Active 1 tablet in the evening Nucynta [facility] [address]-31 75 MG Orally prn Active 1 tablet ProAir HFA [facility] [address]-63 108 (90 Base) MC G/ACT Inhalation every 4 hrs as needed for increased SOB February 13, 2015 Active 2 pu ffs as needed Clopidogrel Bisulfate [facility] [address]-17 75 MG Orally Once a day Active 1 tablet Aspir-Low [facility] [address]-18 81 MG Orally Once a day Active 1 tablet Fluticasone Propionate [facility] [address]-84 50 MCG/ACT Nasall y Once a day Aug 07, 2015 Active 1 spray in each nost ril Carvedilol [facility] [address]-89 3.125 MG Orally once a day Active 1 tablet with food Ranitidine HCl [facility] [address]-01 150 MG Orally QD-BID PRN Mar 272015 Active 1 capsule Sulfasalazine [facility] [address]-26 500 mg Orally 2 in the morning and 2 at night Active 1 tablet Social History Social History Element Qualifiers Date Reported Flu Vaccine: . 2015Jun 24, 2016 Last Colonoscopy: . 2015Jun 24, 2016 Ethnicity . Status , Is thai your prim terrell language? Yes Jun 24, 2016 Last Bone Density: . 2010Jun 24, 2016 children . 2 Jun 24, 2016 Tobacco Use: . Are you a: former smoker 10/14/Jun 24, 2016 Use of recreational / street drugs? . Answer: No Jun 24, 2016 Marital Status: . Jun 24, 2016 Do you drink alcohol? . Status: Yes, Type: MARGARITAS, How often? Socially Jun 24, 2016 Occupation: employed. [employer] Jun 24, 2016 Vital Signs Date/Time: Jun 24, 2016 Weight 194 lbs Height 61 in Temperature 98.1 F Cardiac Monitoring Heart Rate 86 /min Blood Pressure Diastolic 60 mm Hg Blood Pressure Systolic 120 mm Hg Summary Purpose eClinicalWorks Submission
--- OUTSIDE RECORDS SUMMARY | 2019-12-08 09:46 | XMS REPORT ---
Author Author Sujey Lopez [facility] eClinicalWorks Address Unknown Phone Unavailable Care Team Providers Care Sales Development Executive Name Role Phone Leydi Lopez CP Unavailable Allergies, Adverse Reactions, Alerts Substance Reaction Event Type N.K.D.A. Info Not Available Non Drug Allergy Encounters Encounter Location Date Unknown [facility] October 19, 2015 Follow-Up Prabhu Singh MD, [place] Apr 17, 2016 Follow-Up Prabhu Singh MD, [place] October 11, 2015 echo & carotid dopplers Prabhu Singh MD, [place] May 31, 2015 Stomach problems [facility] Apr 30, 2016 Unknown [facility] Jun 10, 2016 Office stress test Prabhu Singh MD, [place] Apr 25, 2016 Unknown [facility] Apr 10, 2016 arterial doppler Prabhu Singh MD, [place] Apr 25, 2016 Abdominal pain [facility] Apr 10, 2016 Stomach issues [facility] January 02, 2016 Allergies [facility] Mar 04, 2016 WWE [facility] November 09, 2015 test results and feet hurting [facility] November 19, 2015 Unknown [facility] Jun 12, 2016 ECHO RESULTS [facility] May 14, 2015 Unknown [facility] Jun 11, 2015 allergies [facility] Jun 27, 2015 sinus infection [facility] Aug 07, 2015 Headaches [facility] Mar 07, 2015 ARTERIAL/ DR.[facility] Apr 24, 2015 Needs call back from Medical Staff [facility] gianfrancoice [facility] May 07, 2015 preop clearance and cough [facility] Jun 24, 2016 Medical Clearance [facility] Jun 24, 2016 Arm hurting [facility] October 04, 2015 Sore throat [facility] October 16, 2015 ALLERGIES [facility] Sep 15, 2016 Unknown [facility] Sep 16, 2016 stomach pain [facility] Sep 17, 2016 Follow-Up Prabhu Singh MD, [place] May 24, 2015 Unknown [facility] Jul 03, 2016 ABD PAIN [facility] Jul 07, 2016 Unknown [facility] Aug 05, 2016 abd pain [facility] Aug 04, 2016 Problems Problem Type Condition [...] Active Problem Coronary artery disease invo lving [place] coronary artery of [place] heart, angina presence unspecified I25.10 Activ e Problem GUCCI (obstructive sleep apnea) G47.33 Active Problem Osteopenia of spine M85.88 Active Problem Chronic obstructive pulmonary disease, unspecified 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 Active Assessment Abdominal spasms R10.9 Active Assessment Lower respiratory infection J22 Active Assessment Constipation, unspecified constipation type K59.00 Active Problem Hypertensive heart disease without heart failure I11.9 Active Assessment Gastroesophageal reflux disease, esophag itis presence not specified K21.9 Active Problem History of [place] (myocardial infarction) I25.2 Active Assessment Hypertensive heart disease without heart failure I11.9 Active Problem Constipation, unspecified constipation type K59.00 Active Medications Medication Code System Code Instructions Start Date End Date Status Dosage Carvedilol [place] [address]-43 3.125 MG Orally once a day Active 1 tablet with food Albuterol Sulfate HFA [place] [employer] [address]-59 108 (90 Ba se) MCG/ACT Inhalation every 4 hrs Jul 07, 2016 Active 2 puffs as neede d Fluticasone [facility] [address]-51 50 MCG/ACT Nasall y Once a day Aug 07, 2015 Active 1 spray in each nost ril Ranitidine HCl [place] [address]-10 150 MG Orally QD-BID PRN Mar 272015 Active 1 capsule Aspir-Low [place] [address]-00 81 MG Orally Once a day Active 1 tablet Simvastatin [place] [address]-24 40 MG Orally Once a day Active 1 tablet in the evening Clopidogrel Bisulfate [place] [address]-07 75 MG Orally Once a day Active 1 tablet Symbicort [place] [address]-15 160-4.5 MCG/ACT Inhalation Twice a day Jul 07, 2016 January 03, 2017 Active 2 puffs Zithromax Z-Jose Alejandro [place] [address]-94 250 MG Orally Once a day Sep 16, 2016 Sep 21, 2016 Active 2 tablets on the first day, then 1 tablet daily for 4 days Sulfasalazine [place] [address]-67 500 mg Orally 2 in the morning and 2 at night Active 1 tablet Nucynta [place] [address]-36 75 MG Orally prn Active 1 tablet Social History Social History Element Qualifiers Date Reported Flu Vaccine: . 2015Sep 17, 2016 Last Colonoscopy: . 2015Sep 17, 2016 Ethnicity . Status , Is nepali your prim terrell language? Yes Sep 17, [...] Yes, Type: MARGARITAS, How often? Socially Sep 17, 2016 Occupation: employed. [employer] Sep 17, 2016 Family history Qualifier Description Comment Date Reported Maternal Grandmother Comment not available Aug 282016 Paternal Grandmother Comment not available Aug 282016 Siblings uterine cancer Sep 17, 2016 Maternal Grandfather Comment not available Aug 282016 Children alive son-gout Sep 17, 2016 Father cardiomegaly Sep 17, 2016 Paternal Grandfather Comment not available Aug 282016 Mother lung cancer, bone cancer, brain cancer Sep 17, 2016 Other: Comment not available Sep 17 17 Vital Signs Date/Time: Sep 17, 2016 Weight 198 lbs Height 61 in Cardiac Monitoring Heart Rate 94 /min Blood Pressure Diastolic 76 mm Hg Blood Pressure Systolic 118 mm Hg Summary Purpose eClinicalWorks Submission
--- OUTSIDE RECORDS SUMMARY | 2019-12-08 09:46 | XMS REPORT ---
Author Author Sujey Singh Organization [employer] Address Unknown Phone Unavailable Care Team Providers Care Product Marketing Specialist Name Role Phone Prabhu Singh CP Unavailable Allergies No Known Allergies Problems Problem Type Condition Code Onset Dates Condition Statu s Problem Coronary atherosclerosis of [place] coronary artery 414 .01 Active Problem Abnormal electrocardiogram [ECG] [EKG] R94.31 Active Problem Obesity, unspecified E66.9 Active Problem Chest pain, unspecified R07.9 Acti ve Problem Atherosclerotic heart diseas e of [place] coronary artery without angina pectoris I25.10 Active Problem Atherosclerotic heart diseas e of [place] coronary artery with unspecified angina pectoris I25.119 [...] Instructions Start Date End Date Status Dosage Plavix [facility] [address]-14 75 MG Orally Once a day Ac tive 1 tablet Results No Known Results Summary Purpose eClinicalWorks Submission
--- OUTSIDE RECORDS SUMMARY | 2019-12-08 09:46 | XMS REPORT ---
Author Author Sujey Valenzuela [facility] [employer] Address Unknown Phone Unavailable Care Team Providers Care Business Intelligence Director Name Role Phone Camryn Valenzuela Unavailable Allergies, Adverse Reactions, Alerts Substance Reaction Event Type N.K.D.A. Info Not Available Non Drug Allergy Encounters Encounter Location Date Unknown [facility] October 19, 2015 Office stress test Prabhu [place], [place] Apr 25, 2016 Follow-Up Prabhu [place], [place] Apr 17, 2016 Follow-Up [facility] [place] [place] October 11, 2015 Stomach problems [facility] Apr 30, 2016 Unknown [facility] Jun 10, 2016 arterial doppler [facility]ab[facility] [place] [place] Apr 25, 2016 Unknown [facility] Apr 10, 2016 Abdominal pain [facility] Apr 10, 2016 Stomach issues [facility] January 02, 2016 Allergies [facility] Mar 04, 2016 WWE [facility] November 09, 2015 test results and feet hurting [facility] November 19, 2015 Unknown [facility] Jun 12, 2016 ECHO RESULTS [facility] May 14, 2015 Unknown [facility] Jun 11, 2015 allergies [facility] Jun 27, 2015 sinus infection [facility] Aug 07, 2015 Headaches [facility] Mar 07, 2015 ARTERIAL/ DR.[facility] Apr 24, 2015 [facility] May 07[facility] 2015 preop clearance and cough [facility] Jun 24, 2016 Medical Clearance [facility] Jun 24, 2016 Arm hurting [facility] October 04, 2015 Sore throat [facility] October 16, 2015 ALLERGIES [facility] Sep 15, 2016 Unknown [facility] Sep 16, 2016 Follow-Up Prabhu [place], [place] May 24, 2015 echo & carotid dopplers Prabhu Singh [place], [place] May 31, 2015 Unknown [facility] Jul 03, 2016 ABD PAIN [facility] Jul 07, 2016 Unknown [facility] Aug 05, 2016 abd pain [facility] Aug 04, 2016 Problems Problem [...] Active Problem Chronic obstructive pulmonary disease, unspecified [employer]IVER D type J44.9 Active Problem Coronary artery disease invo lving [place] coronary artery of [place] heart, angina presence unspecified I25.10 Activ e Problem Osteopenia of spine M85.88 Active Problem Allergic rhinitis J30.9 Active Assessment Seasonal allergic rhinitis, unspecified allergic rhinitis trigger J30.2 Active Problem Hypertensive heart disease without heart failure I11.9 Active Problem History of [place] (myocardial infarction) I25.2 Active Assessment Coronary artery disease invo lving [place] coronary artery of [place] heart, angina presence unspecified I25.10 Activ e Problem Constipation, unspecified constipation type K59.00 Active Assessment Allergic rhinitis J30.9 Active Problem Non morbid obesity due to excess calories E66.09 Active Medications Medication Code System Code Instructions Start Date End Date Status Dosage Sulfasalazine [facility] [address]-89 500 mg Orally 2 in the morning and 2 at night Active 1 tablet Aspir-Low [facility] [address]-77 81 MG Orally Once a day Active 1 tablet Carvedilol [facility] [address]-89 3.125 MG Orally once a day Active 1 tablet with food Albuterol Sulfate [facility] [address]-41 108 (90 Ba se) MCG/ACT Inhalation every 4 hrs Jul 07, 2016 Active 2 puffs as neede d Simvastatin [facility] [address]-14 40 MG Orally Once a day Active 1 tablet in the evening Nucynta [facility] [address]-01 75 MG Orally prn Active 1 tablet Fluticasone Propionate [facility] [address]-85 50 MCG/ACT Nasall y Once a day Aug 07, 2015 Active 1 spray in each nost ril Ranitidine HCl [facility] [address]-11 150 MG Orally QD-BID PRN Mar 272015 Active 1 capsule Symbicort [facility] [address]-88 160-4.5 MCG/ACT Inhalation Twice a day Jul 07, 2016 January 03, 2017 Active 2 puffs Clopidogrel Bisulfate [facility] [address]-12 75 MG Orally Once a day Active 1 tablet Social History Social History Element Qualifiers Date Reported Flu Vaccine: . 2015Sep 15, 2016 Last Colonoscopy: . 2015Sep 15, 2016 Ethnicity . Status , Is bengali your prim terrell language? Yes Sep 15, [...] often? Socially Sep 15, 2016 Occupation: employed. [employer] Sep 15, 2016 Vital Signs Date/Time: Sep 15, 2016 Weight 199 lbs Height 61 in Cardiac Monitoring Heart Rate 82 /min Blood Pressure Diastolic 80 mm Hg Blood Pressure Systolic 120 mm Hg Results DECADRON 1MGx4 Summary Purpose eClinicalWorks Submission
--- OUTSIDE RECORDS SUMMARY | 2019-12-08 09:46 | XMS REPORT ---
Author Author Sujey Singh Organization [employer] Address Unknown Phone Unavailable Care Team Providers Care Melt Supervisor Name Role Phone Prabhu Singh CP Unavailable Allergies No Known Allergies Problems Problem Type Condition Code Onset Dates Condition Statu s Problem Obesity, unspecified E66.9 Active Problem Mixed hyperlipidemia E78.2 Active Problem Abnormal electrocardiogram [ECG] [EKG] R94.31 Active Problem Atherosclerotic heart diseas e of [place] coronary artery with unspecified angina pectoris I25.119 Active Problem Chest pain, unspecified R07.9 Acti ve Problem Body mass index (BMI) 36.0-36.9, adult Z68.36 Active Problem Coronary angioplasty status Z98.61 Active Problem Hypertensive heart disease without heart failure I11.9 Active Problem Atherosclerotic heart diseas e of [place] coronary artery without angina pectoris I25.10 Active Problem Old myocardial infarction I25.2 Ac tive Problem Obesity, unspecified 278.00 Active Problem Benign hypertensive heart disease without heart failur e 402.10 Active Problem Postprocedural PCI status V45.82 Ac tive Problem Abnormal ECG 794.31 Active Problem Old myocardial infarction 412 Ac tive Problem Mixed hyperlipidemia 272.2 Active Problem Coronary atherosclerosis of [place] coronary artery 414 .01 Active Medications Medication Code System Code Instructions Start Date End Date Status Dosage Carvedilol [facility] [address]-51 3.125 MG Orally twice a day (bid) Active 1 tablet Results No Known Results Summary Purpose eClinicalWorks Submission
--- OUTSIDE RECORDS SUMMARY | 2019-12-08 09:46 | XMS REPORT ---
Author Author [facility] t Organization [facility] Address [address] [place] [address] Phone Unavailable Care Team Providers Care Bus Info Consultant Name Role Phone Jennifer SHAH PCP Ranjit BERKOWITZ Attphys Unavailable Payers Payer Name Policy Type Policy Number Effective Date Expiration Date S ource Advance Directives Directive Decision Effective Date Termination Date Comments Sour ce Yes N/A [facility] Problems Condition Name Condition Details Condition Category Status Onset Date Resolution Date Last Treatment Date Treating Clinician Comments Source Problem Condition [facility] Allergies, Adverse Reactions, Alerts This patient has no known allergies or adverse reactions. Social History Social Habit Start Date Stop Date Quantity Comments Source Sex Assigned At 1960 00:00:00 1960 00:00:00 Female [facility] Medications This patient has no known medications. Vital Signs Vital Name Observation Time Observation Value Comments Source Body Temperature 2019-11-23 05:20:00 98.5 [degF] [facility] Weight 2019-11-23 02:15:00 230 [lb_av] [facility] BMI (Body Mass Index) 2019-11-23 02:15:00 43.5 kg/m2 [facility] Procedures This patient has no known procedures. Plan of Care Planned Activity Planned Date Details Comments Source Instructions Chest Pain - Noncardiac [facility] Encounters Start Date/Time End Date/Time Encounter Type Admission Type Att[facility] Care Department Encounter ID Source 2019-11-23 02:15:00 2019-11-23 05:20:00 Departed Emergency Room 1 LATRELL BERKOWITZ [facility] [id number] [facility] 2019-07-17 20:46:00 2019-07-17 20:46:00 Outpatient [id number] 2018-07-22 16:25:00 2018-07-22 16:25:00 Outpatient [facility] [id number] [facility] 2018-07-09 11:35:00 2018-07-09 11:35:00 [facility] [id number] [facility] 2018-07-06 16:00:00 2018-07-06 16:00:00 Outpatient [facility] [id number] [facility] 2017-12-22 16:15:00 2017-12-22 16:15:00 [facility] [id number] [facility] 2017-11-16 10:02:00 2017-11-16 10:02:00 Outpatient [facility] [id number] [facility] 2017-10-02 18:34:00 2017-10-02 18:34:00 [facility]patient [facility] [id number] [facility] 2017-09-27 22:25:00 2017-09-27 22:25:00 Outpatient [facility] [id number] [facility] 2017-08-31 10:45:00 2017-08-31 10:45:00 [facility] [id number] [facility] 2017-07-01 12:17:00 2017-07-01 12:17:00 [facility] [id number] [facility] 2017-06-04 19:06:00 2017-06-04 19:06:00 Outpatient [facility] [id number] [facility] 2017-04-24 18:38:00 2017-04-24 18:38:00 Outpatient [facility] [id number] [facility] 2017-04-15 10:45:00 2017-04-15 10:45:00 Outpatient [facility] [id number] [facility] 2017-04-14 11:30:00 2017-04-14 11:30:00 [place] [id number] Prabhu [facility] 2017-03-31 14:45:00 2017-03-31 14:45:00 Outpatient [facility] [id number] [facility] 2017-03-31 10:05:00 2017-03-31 10:05:00 Outpatient [facility] [id number] [facility] 2017-03-12 17:02:00 2017-03-12 17:02:00 Outpatient [facility] [id number] [facility] 2017-01-28 10:00:00 2017-01-28 10:00:00 Outpatient [facility] [id number] [facility] 2017-01-14 10:30:00 2017-01-14 10:30:00 Outpatient [facility] [id number] [facility] 2017-01-12 08:17:00 2017-01-12 08:17:00 Outpatient [facility] [id number] [facility] 2017-01-09 15:45:00 2017-01-09 15:45:00 Outpatient [facility] [id number] [facility] 2016-12-30 14:15:00 2016-12-30 14:15:00 Outpatient [facility] [id number] [facility] 2016-11-03 12:46:00 2016-11-03 12:46:00 [place] [id number] Prabhu Singh MD, [place] 2016-10-16 15:30:00 2016-10-16 15:30:00 [place] [id number] Prabhu Singh MD, [place] 2016-10-13 15:15:00 2016-10-13 15:15:00 [facility] [id number] [facility] 2016-10-13 12:06:00 2016-10-13 12:06:00 [place] [id number] Prabhu Singh MD, [place] 2016-10-08 17:43:00 2016-10-08 17:43:00 Outpatient [facility] [id number] [facility] 2016-09-17 11:30:00 2016-09-17 11:30:00 Outpatient [facility] [id number] [facility] 2016-09-16 16:38:00 2016-09-16 16:38:00 Outpatient [facility] [id number] [facility] 2016-09-15 08:45:00 2016-09-15 08:45:00 Outpatient [facility] [id number] [facility] 2016-08-05 16:09:00 2016-08-05 16:09:00 Outpatient [facility] [id number] [facility] 2016-08-04 11:45:00 2016-08-04 11:45:00 Outpatient [facility] [id number] [facility] 2016-07-07 11:45:00 2016-07-07 11:45:00 Outpatient [facility] [id number] [facility] 2016-07-03 17:54:00 2016-07-03 17:54:00 Outpatient [facility] [id number] [facility] 2016-06-24 17:12:00 2016-06-24 17:12:00 Outpatient [facility] [id number] [facility] 2016-06-24 16:15:00 2016-06-24 16:15:00 Outpatient [facility] [id number] [facility] 2016-06-12 09:57:00 2016-06-12 09:57:00 Outpatient [facility] [id number] [facility] 2016-06-10 12:22:00 2016-06-10 12:22:00 Outpatient [facility] [id number] [facility] 2016-04-30 11:45:00 2016-04-30 11:45:00 Outpatient [facility] [id number] [facility] 2016-04-25 11:00:00 2016-04-25 11:00:00 Outpatient [place] [id number] Prabhu Singh MD, PA 2016-04-25 11:00:00 2016-04-25 11:00:00 [place] [id number] Prabhu Singh MD, PA 2016-04-25 10:00:00 2016-04-25 10:00:00 Outpatient [place]ab[place] [id number] Prabhu Singh MD, PA 2016-04-17 15:15:00 2016-04-17 15:15:00 Outpatient [place] [id number] Prabhu Singh MD, PA 2016-04-10 18:38:00 2016-04-10 18:38:00 Outpatient [facility] [id number] [facility] 2016-04-10 11:15:00 2016-04-10 11:15:00 Outpatient [facility] [id number] [facility] 2016-03-04 14:45:00 2016-03-04 14:45:00 Outpatient [facility] [id number] [facility] 2016-01-02 11:00:00 2016-01-02 11:00:00 Outpatient [facility] [id number] [facility] 2015-11-19 14:15:00 2015-11-19 14:15:00 Outpatient [facility] [id number] [facility] 2015-11-09 10:00:00 2015-11-09 10:00:00 Outpatient [facility] [id number] [facility] 2015-10-19 15:19:00 2015-10-19 15:19:00 Outpatient [facility] [id number] [facility] 2015-10-16 09:15:00 2015-10-16 09:15:00 Outpatient [facility] [id number] [facility] 2015-10-11 16:00:00 2015-10-11 16:00:00 Out[place] [id number] Prabhu Singh MD, PA 2015-10-04 11:15:00 2015-10-04 11:15:00 Outpatient [facility] [id number] [facility] 2015-08-07 08:15:00 2015-08-07 08:15:00 Outpatient [facility] [id number] [facility] Results Test Description Test Time Test Comments Results Result Comments Source CXR 2 VIEW - HOPD 2019-11-23 03:42:00 [place] [id number] Patient Name: BRANT ROSS MR #: [id number] : 1960 Age/Sex: 59/F Req #: [id number] Adm Physician: Ordered by: LATRELL BERKOWITZ MD Report #: [id number] Location: [facility] Room/Bed: Procedure: [id number] HOPD/CXR 2 VIEW - HOPD Exam Date: 11/23/19 Exam Time: 319 REPORT STATUS: Signed EXAMINATION: CXR 2 VIEW - HOPD INDICATION: chest pain [id number] COMPARISON: None FINDINGS: PA and lateral views TUBES and LINES: None. LUNGS: Lungs are well inflated. Lungs are clear. There is no evidence of pneumonia or pulmonary edema. PLEURA: No pleural effusion or pneumothorax. HEART AND MEDIASTINUM: The cardiomediastinal silhouette is unremarkable. BONES AND SOFT TISSUES: No acute osseous lesion. Soft tissues are unremarkable. UPPER ABDOMEN: No free air under the diaphragm. IMPRESSION: No acute thoracic radiographic abnormality. Signed by: Bryanna Olivares MD on 11/23/2019 3:42 AM Dictated By: KITTY OLIVARES MD 1 Transcribed By: ABEL on 11/23/19341 COPY TO: LATRELL BERKOWITZ MD Serum or plasma creatine kinase measurement (enzymatic activity/volume) 2019-11-23 03:15:00 Test Item Creatine Kinase (test code = 2157-6) [facility] creatine kinase MB measurement (mass/volume)2019-11-23 03:15:00* Test Item Value Reference Range Interpretation Comments Creatine Kinase MB (test code = 99317-8) 2.30 [facility] by highly sensitive enzyme [id number] 03:15:00* Test Item Value Reference Range Interpretation Comments Troponin I (test code = 85676-4) < 0.001 [facility]
--- OUTSIDE RECORDS SUMMARY | 2019-12-08 09:46 | XMS REPORT ---
Author Author Sujey Valenzuela [facility] eClinicalWorks Address Unknown Phone Unavailable Care Team Providers Care Hand Sewer Shoes Name Role Phone Camryn Valenzuela Unavailable Allergies, Adverse Reactions, Alerts Substance Reaction Event Type N.K.D.A. Info Not Available Non Drug Allergy Encounters Encounter Location Date Unknown [facility] October 19, 2015 arterial doppler [place]ab[place] Apr 25, 2016 Office stress test Prabhu Singh [place], [place] Apr 25, 2016 Stomach problems [facility] Apr 30, 2016 Unknown [facility] Jun 10, 2016 Unknown [facility] Apr 10, 2016 Abdominal pain [facility] Apr 10, 2016 Stomach issues [facility] January 02, 2016 Allergies [facility] Mar 04, 2016 WWE [facility] November 09, 2015 test results and feet hurting [facility] November 19, 2015 Unknown [facility] Jun 12, 2016 ECHO RESULTS [facility] May 14, 2015 Unknown [facility] Jun 11, 2015 allergies [facility] Jun 27, 2015 sinus infection [facility] Aug 07, 2015 Headaches [facility] Mar 07, 2015 ARTERIAL/ [facility] Apr 24, 2015 Needs call back from Medical Staff [facility] May 07, 2015 preop clearance and cough [facility] Jun 24, 2016 Medical Clearance [facility] Jun 24, 2016 Arm hurting [facility] October 04, 2015 Sore throat [facility] October 16, 2015 Follow-Up Prabhu Singh [place], [place] May 24, 2015 echo & carotid dopplers Prabhu Singh [place] [place] May 31, 2015 Follow-Up Prabhu Singh [place], [place] October 11, 2015 Follow-Up Prabhu Singh [place], [place] Apr 17, 2016 Unknown [facility] Jul 03, 2016 [facility] Jul 07, 2016 Unknown [facility] Aug 05, 2016 [facility] Aug 04, 2016 Problems Problem Type [...] Active Problem Coronary artery disease invo lving [place] coronary artery of [place] heart, angina presence unspecified I25.10 Activ e Problem GUCCI (obstructive sleep apnea) G47.33 Active Problem Allergic rhinitis J30.9 Active Problem Chronic obstructive pulmonary disease, unspecified 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 Active Assessment Abdominal pain, unspecified location R10.9 Active Problem Hypertensive heart disease without heart failure I11.9 Active Problem History of [place] (myocardial infarction) I25.2 Active Assessment Dry skin L85.3 Active Problem Constipation, unspecified constipation type K59.00 Active Medications Medication Code System Code Instructions Start Date End Date Status Dosage Nucynta [facility] [address]-73 75 MG Orally prn Active 1 tablet Carvedilol [facility] [address]-03 3.125 MG Orally once a day Active 1 tablet with food Sulfasalazine [facility] [address]-06 500 mg Orally 2 in the morning and 2 at night Active 1 tablet Fluticasone Propionate [facility] [address]-26 50 MCG/ACT Nasall y Once a day Aug 07, 2015 Active 1 spray in each nost ril Clopidogrel Bisulfate [facility] [address]-63 75 MG Orally Once a day Active 1 tablet Albuterol Sulfate HFA [facility] [address]-14 108 (90 Ba se) MCG/ACT Inhalation every 4 hrs Jul 07, 2016 Active 2 puffs as neede d Aspir-Low [facility] [address]-68 81 MG Orally Once a day Active 1 tablet Simvastatin [facility] [address]-41 40 MG Orally Once a day Active 1 tablet in the evening Ranitidine HCl [facility] [address]-85 150 MG Orally QD-BID PRN Mar 272015 Active 1 capsule Symbicort [facility] [address]-85 160-4.5 MCG/ACT Inhalation Twice a day Jul 07, 2016 January 03, 2017 Active 2 puffs Social History Social History Element Qualifiers Date Reported Flu Vaccine: . 2015Aug 04, 2016 Last Colonoscopy: . 2015Aug 04, 2016 Ethnicity . Status , Is slovenian your prim terrell language? Yes Aug 04, 2016 Last Bone Density: . 2010Aug 04, 2016 children . 2 Aug 04, 2016 Tobacco Use: . Are you a: former smoker 10/14/12 Aug 04, 2016 Use of recreational / street drugs? . Answer: No Aug 04, 2016 Marital Status: . Aug 04, 2016 Do you drink alcohol? . Status: Yes, Type: MARGARITAS, How often? Socially Aug 04, 2016 Occupation: employed. [employer] Aug 04, 2016 Vital Signs Date/Time: Aug 04, 2016 Weight 196 lbs Height 61 in Cardiac Monitoring Heart Rate 80 /min Blood Pressure Diastolic 82 mm Hg Blood Pressure Systolic 118 mm Hg Results COMPREHENSIVE METABOLIC PANEL CALCIUM(-8.6-10.4 mg/dL) 9.4 CARBON DIOXIDE(-20-31 mmol/L) 28 ALT(-6-29 U/L) 21 CREATININE(-0.50-1.05 mg/dL) 0.82 AST(-10-35 U/L) 18 eGFR NON-AFR. PARAGUAYAN(-> OR = 60 mL/min/1.73m2) 81 ALKALINE PHOSPHATASE(-33-130 U/L) 110 eGFR (-> OR = 60 mL/min/1.73m2) 94 BILIRUBIN, TOTAL(-0.2-1.2 mg/dL) 0.3 BUN/CREATININE RATIO(-6-22 (calc)) NOT APPLICABLE ALBUMIN/GLOBULIN RATIO(-1.0-2.5 (calc)) 1.7 SODIUM(-135-146 mmol/L) 139 GLOBULIN(-1.9-3.7 g/dL (calc)) 2.5 POTASSIUM(-3.5-5.3 mmol/L) 4.3 GLUCOSE(-65-99 mg/dL) 87 CHLORIDE(-98-110 mmol/L) 104 ALBUMIN(-3.6-5.1 g/dL) 4.3 UREA NITROGEN (BUN)(-7-25 mg/dL) 13 PROTEIN, TOTAL(-6.1-8.1 g/dL) 6.8 CBC (INCLUDES DIFF/PLT) ABSOLUTE EOSINOPHILS(-15-500 cells/uL) 80 MCV(-80.0-100.0 fL) 90.0 HEMATOCRIT(-35.0-45.0 %) 41.7 ABSOLUTE MONOCYTES(-200-950 cells/uL) 461 MCHC(-32.0-36.0 g/dL) 32.8 ABSOLUTE LYMPHOCYTES(-850-3900 cells/uL) 1696 MCH(-27.0-33.0 pg) 29.5 ABSOLUTE NEUTROPHILS(-9122-7796 cells/uL) 3042 MONOCYTES(- %) 8.7 WHITE BLOOD CELL COUNT(-3.8-10.8 Thousand/uL) 5.3 LYMPHOCYTES(- %) 32.0 NEUTROPHILS(- %) 57.4 HEMOGLOBIN(-11.7-15.5 g/dL) 13.7 ABSOLUTE BASOPHILS(-0-200 cells/uL) 21 RED BLOOD CELL COUNT(-3.80-5.10 Million/uL) 4.64 BASOPHILS(- %) 0.4 MPV(-7.5-11.5 fL) 10.0 EOSINOPHILS(- %) 1.5 RDW(-11.0-15.0 %) 14.2 PLATELET COUNT(-140-400 Thousand/uL) 153 AMYLASE AMYLASE(-21-101 U/L) 29 LIPASE LIPASE(-7-60 U/L) 30 URINALYSIS, COMPLETE OCCULT BLOOD(-NEGATIVE ) NEGATIVE KETONES(-NEGATIVE ) NEGATIVE BILIRUBIN(-NEGATIVE ) NEGATIVE GLUCOSE(-NEGATIVE ) NEGATIVE PH(-5.0-8.0 ) 6.0 SPECIFIC GRAVITY(-1.001-1.035 ) 1.011 APPEARANCE(-CLEAR ) CLOUDY COLOR(-YELLOW ) DARK YELLOW COMMENTS(- ) FEW MUCOUS THREADS SQUAMOUS EPITHELIAL CELLS(-< OR = 5 /HPF) 10-20 BACTERIA(-NONE SEEN /HPF) FEW HYALINE CAST(-NONE SEEN /LPF) NONE SEEN YEAST(-NONE SEEN /HPF) MODERATE NITRITE(-NEGATIVE ) NEGATIVE LEUKOCYTE ESTERASE(-NEGATIVE ) 1+ WBC(-< OR = 5 /HPF) 6-10 RBC(-< OR = 2 /HPF) 0-2 PROTEIN(-NEGATIVE ) NEGATIVE Summary Purpose eClinicalWorks Submission
--- OUTSIDE RECORDS SUMMARY | 2019-12-08 09:46 | XMS REPORT ---
Author Author Sujey Valenzuela [facility] eClinicalWorks Address Unknown Phone Unavailable Care Team Providers Care Automobile Carpets Molder Name Role Phone Nicolas Camryn Unavailable Encounters Encounter Location Date Unknown [facility] October 19, 2015 arterial doppler [place] Apr 25, 2016 Stomach problems [facility] Apr 30, 2016 Unknown [facility] Jun 10, 2016 Unknown [facility] Apr 10, 2016 Abdominal pain [facility] Apr 10, 2016 Stomach issues [facility] January 02, 2016 Allergies [facility] Mar 04, 2016 WWE [facility] November 09, 2015 test results and feet hurting [facility] November 19, 2015 Unknown [facility] Jun 12, 2016 ECHO RESULTS [facility] May 14, 2015 Unknown [facility] Jun 11, 2015 allergies [facility] Jun 27, 2015 sinus infection [facility] Aug 07, 2015 Headaches [facility] Mar 07, 2015 ARTERIAL/ [facility] Apr 24, 2015 Needs call back from Medical Staff [facility] May 07, 2015 preop clearance and cough [facility] Jun 24, 2016 Medical Clearance [facility] Jun 24, 2016 Arm hurting [facility] October 04, 2015 Sore throat [facility] October 16, 2015 echo & carotid dopplers Prabhu Singh [place], [place] May 31, 2015 Follow-Up Prabhu Singh [facility] [place] October 11, 2015 Follow-Up Prabhu Singh [place], [place] Apr 17, 2016 Office stress test Prabhu [place] [place] Apr 25, 2016 Unknown [facility] Jul 03, 2016 ABD PAIN [facility] Jul 07, 2016 Unknown [facility] Aug 05, 2016 Follow-Up Prabhu Singh MD, [place] May [...] Active Problem Coronary artery disease invo lving [place] coronary artery of [place] heart, angina presence unspecified I25.10 Activ e Problem GUCCI (obstructive sleep apnea) G47.33 Active Problem Allergic rhinitis J30.9 Active Problem Chronic obstructive pulmonary disease, unspecified 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 2015Aug 04, 2016 Last Colonoscopy: . 2015Aug 04, 2016 Ethnicity . Status , Is mongolian your prim terrell language? Yes Aug 04, [...] often? Socially Aug 04, 2016 Occupation: employed. [employer] Aug 04, 2016 Summary Purpose eClinicalWorks Submission
--- OUTSIDE RECORDS SUMMARY | 2019-12-08 09:46 | XMS REPORT ---
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
--- OUTSIDE RECORDS SUMMARY | 2019-12-08 09:46 | XMS REPORT ---
Author Author Sujey Porter [facility] eClinicalWorks Address Unknown Phone Unavailable Care Team Providers Care Credit Collections Analyst Name Role Phone Loli Porter Unavailable Encounters Encounter Location Date Unknown [place] [...] 09, 2015 test results and feet hurting [facility] November [...] Needs call back from Medical Staff [facility] May 07, 2015 preop clearance and cough [facility] Jun 24, 2016 Medical Clearance [facility] Jun 24, 2016 Arm hurting [facility] October 04, 2015 Sore throat [facility] October 16, 2015 Follow-Up Prabhu Singh [place], [place] Apr 17, 2016 Office stress test Prabhu Singh MD, [place] Apr 25, 2016 arterial doppler Prabhu Singh MD, [place] Apr 25, 2016 Unknown [facility] Jul 03, 2016 Follow-Up Prabhu Singh MD, [place] May [...] Active Problem Coronary artery disease invo lving [place] coronary artery of [place] heart, angina presence unspecified I25.10 Activ e Problem GUCCI (obstructive sleep apnea) G47.33 Active Problem Allergic rhinitis J30.9 Active Problem Chronic obstructive pulmonary disease, unspecified 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 2015Jul 07, 2016 Last Colonoscopy: . 2015Jul 07, 2016 Ethnicity . Status , Is mongolian your prim terrell language? Yes Jul 07, [...] Socially Jul 07, 2016 Occupation: employed. [employer] Jul 07, 2016 Family history Qualifier Description [...] 2016 Other: Comment not available Jul 07 Summary Purpose eClinicalWorks Submission
[2019-12-08 13:30] VITALS: BP 132/90
--- NOTE | 2019-12-08 15:25 | Operative Report ---
DATE OF PROCEDURE: 12/08/2019 SURGEON: Noel Aguilar MD PROCEDURES: EGD with biopsies and colonoscopy with polypectomy REFERRING PHYSICIANS: 1. Dr. Nunn. 2. Dr. Flaco Jones. INDICATIONS FOR EGD: Upper abdominal pain, dark stools, heartburn. INDICATIONS FOR COLONOSCOPY: History of bright red blood per rectum, personal history of colon polyps. MEDICATIONS: The patient was done under MAC, please see anesthesiologist's note. PROCEDURE IN DETAIL: With the patient in left lateral decubitus position, a flexible fiberoptic Olympus gastroscope was introduced into the esophagus under direct visualization without any difficulty. An erosion was noted in the distal esophagus. The scope was then advanced with ease into the stomach, traversing a small sliding hiatal hernia. Mucosa overlying the antrum and the body revealed some patchy erythema and low-grade to moderate edema; biopsies were obtained, sent to stain for H. pylori. The pylorus was of normal contour and shape, it was intubated with ease and the scope was advanced all the way to the second portion of the duodenum. The scope was then withdrawn slowly and biopsies were obtained from the proximal second portion and the duodenal bulb to rule out sprue. The scope was then withdrawn back into the stomach and retroflexed, mucosa overlying the fundus and cardia appeared to be within normal limits. The scope was then straightened out, it was subsequently withdrawn. The patient tolerated the procedure well. IMPRESSION: 1. Erosive esophagitis. 2. Small sliding hiatal hernia. 3. Gastritis, biopsied, biopsies sent to stain for H. pylori. 4. Rule out sprue. PLAN: 1. Follow up histology. 2. Initiate Protonix 40 mg one p.o. q.a.m. a.c. DESCRIPTION OF PROCEDURE: The patient was then turned around after adequate lubrication of the anal canal, a flexible fiberoptic Olympus colonoscope was inserted into the rectum with ease and advanced all the way to the cecum. Mucosa overlying the cecum appeared to be within normal limits. One polyp was removed per the cold biopsy forceps from the ascending colon. Of note, diverticular disease was noted to be scattered throughout the colon. One polyp was hot snared and site was hemoclipped in the transverse colon. Other than for diverticulosis of the descending colon appeared to be within normal limits. Four polyps were removed per hot snare polypectomy from the sigmoid colon and one polypectomy site was hemoclipped. Four polyps were hot biopsied from the rectum. The scope was then retroflexed into the distal rectum. Small internal hemorrhoids were noted, none of which were actively bleeding. The scope was then straightened out, it was subsequently withdrawn. The patient tolerated the procedure well. IMPRESSION: 1. Diverticulosis. 2. Ascending colon polyp removed per cold biopsy forceps. 3. Transverse colon polyp, hot snared and site hemoclipped x1. 4. Sigmoid colon polyps x4, hot biopsied, one polypectomy site hemoclipped. 5. Rectal polyps x4, hot biopsied. 6. Internal hemorrhoids, none actively bleeding. PLAN: 1. Follow up histology. 2. Initiate high-fiber, low-fat diet. 3. Initiate high-fiber supplement. 4. Timing of colonoscopy pending pathology report. MD CARA Waite/NOÉ /[id number]
== END | disposition home or self-care (01) ==
LOC: OR 09:27
PROVIDERS: ATTEND Internal Medicine Gastroenterology
DX: K29.70 Gastritis, unspecified, without bleeding (principal); D12.2 Benign neoplasm of ascending colon; D12.3 Benign neoplasm of transverse colon; K62.1 Rectal polyp; K22.10 Ulcer of esophagus without bleeding; K21.9 Gastro-esophageal reflux disease without esophagitis; K44.9 Diaphragmatic hernia without obstruction or gangrene; K57.30 Diverticulosis of large intestine without perforation or abscess without bleeding; K64.8 Other hemorrhoids; G47.33 Obstructive sleep apnea (adult) (pediatric); J44.9 Chronic obstructive pulmonary disease, unspecified; I25.10 Atherosclerotic heart disease of native coronary artery without angina pectoris; I25.2 Old myocardial infarction; R03.0 Elevated blood-pressure reading, without diagnosis of hypertension; E78.00 Pure hypercholesterolemia, unspecified; M06.9 Rheumatoid arthritis, unspecified; Z01.810 Encounter for preprocedural cardiovascular examination; Z01.812 Encounter for preprocedural laboratory examination; Z11.59 Encounter for screening for other viral diseases; Z79.02 Long term (current) use of antithrombotics/antiplatelets; Z79.82 Long term (current) use of aspirin; Z68.41 Body mass index [BMI] 40.0-44.9, adult; Z87.01 Personal history of pneumonia (recurrent); Z95.5 Presence of coronary angioplasty implant and graft; Z87.891 Personal history of nicotine dependence
CPT/HCPCS: 36415; 43239; 44391; 45380; 45384; 45385; 85025; 87635; 93005; J2001; J2250; J3010